=== PATIENT | male | born 1960 | race Caucasian/White ===

== ENCOUNTER 2020-10-18 08:14 | Inpatient (IN) | payer OTHER, SELFPAY ==
[2020-10-18] VITALS (11 sets, daily range): BP systolic 135–174; BP diastolic 87–118; PULSE 75–112; RESP 12–18; TEMP 36.3–37; O2SAT 96–100; BMI 26.6
--- NOTE | 2020-10-18 08:52 | ECG_ITS ---
Test Reason : ABDOMINAL PAIN Blood Pressure : / mmHG Vent. Rate : 100 BPM Atrial Rate : 100 BPM P-R Int : 148 ms QRS Dur : 094 ms QT Int : 342 ms P-R-T Axes : 051 -37 024 degrees QTc Int : 441 ms Normal sinus rhythm Left axis deviation Incomplete right bundle branch block Abnormal ECG No previous ECGs available Referred By: Anjana Dove Electronically Signed By:HERMES ISBELL
--- NOTE | 2020-10-18 08:53 | CT_ITS ---
EXAMINATION: CT ABDOMEN AND PELVIS WITH CONTRAST CLINICAL INFORMATION: Upper/left abdominal pain with GI bleeding. COMPARISON: None TECHNIQUE: Multidetector volumetric images were obtained from the superior aspect of the liver through the pubic symphysis following administration 85 mL of Omnipaque 350 intravenous contrast. Sagittal and coronal reformatted images were obtained on the technologist's workstation. Oral contrast: No This CT examination was performed using dose optimization techniques as appropriate, variously including the following: Automated exposure control Adjustment of mA and/or kV according to patient size (this includes techniques or standardized protocols for targeted exams where dose is matched to indication/reason for exam; i.e. extremities or head) Use of iterative reconstruction technique DLP: 1466 mGy-cm FINDINGS: LUNG BASES: The heart size is normal. The lung bases are clear. LIVER, GALLBLADDER, AND BILIARY TREE: The liver is normal in size, shape, and attenuation. There is a 3 mm punctate hypodensity of the left hepatic lobe and the right hepatic lobe probable cysts. No enhancing liver lesions seen. There is no intrahepatic ductal dilatation. The gallbladder is unremarkable with no evidence of radiopaque gallstones, gallbladder wall thickening, or obvious pericholecystic inflammatory changes. PANCREAS: Unremarkable. SPLEEN: Unremarkable. ADRENAL GLANDS: Unremarkable. KIDNEYS AND URETERS: The kidneys are normal in size, shape, and attenuation. No hydronephrosis, hydroureter, or calculi seen. No perinephric stranding. A partially exophytic 1.9 cm cyst is seen in the midpole left kidney. BLADDER: Unremarkable GASTROINTESTINAL TRACT: There is moderate scattered stool seen throughout the colon without distention. There is mild mural thickening suspected in the rectum and the area of probable anterior rectal bleed. The small bowel loops are normal caliber. Appendix is normal caliber. The stomach is nondistended. ABDOMINAL WALL: No significant hernia is appreciated. LYMPH NODES: Normal. VASCULAR: There is a punctate right blood density seen in the rectum anteriorly on axial image 195/12 which could be potential site for bleed. There is a heterogenous density in the rectum and sigmoid colon likely mixed with blood. . Present The sigmoid colon is nondilated and appears unremarkable. No additional areas of the abdominal hyperdensity a blood pooling seen to suspect any evidence of hemorrhage. The abdominal aorta is normal caliber. Mild atherosclerosis seen. Origins of celiac, superior mesenteric and intracystic arteries are widely patent. Solitary renal arteries are seen bilaterally. PELVIC VISCERA: There is no free air or free fluid seen. There is no abnormal lymph nodes. No evidence of inguinal hernia. The prostate gland is mildly enlarged. Periprostatic fat planes are not well defined.. OSSEOUS STRUCTURES: No lytic or sclerotic process seen. CT/CT abdomen pelvis w con IMPRESSION: Slightly heterogenous fluid collection seen in the rectum and distal sigmoid colon with the area of hypodensity in the anterior wall of the rectum could be likely cysts site of bleed. This can be visualized by colonoscopy. Mild constipation. No additional areas of abnormal density seen. Left renal cyst.
--- NOTE | 2020-10-18 08:54 | ED_ITS ---
HPI - GI Bleed General Chief complaint: Abdominal Pain Stated complaint: BLOOD IN STOOL Time Seen by Provider: 10/18/20 08:26 Source: patient Mode of arrival: ambulatory Limitations: no limitations History of Present Illness HPI Narrative: 60yoM c PMHx HTN, HLD and anxiety d/o presenting to the ED c c/o bright red rectal bleeding x 1-1/2 months worse today where he had his pants almost completely saturated with blood which he brought with him to the ER. Reports lastnight had some upper/left sided abd pain. Reports his Mother has a hx of diverticulitis. Reports he ate nuts yesterday. Reports today when he had the episode of blood saturating his [pants he felt dizzy and at this time he feels lightheaded worse if he stand up too quickly. Reports that he took aspirin 80 mg although does not take this daily. Denies being on any other blood thinners. Denies ever having rectal bleeding in the past. Related Data Home Medications Medication Instructions Recorded Confirmed aspirin 81 mg PO DAILY 10/18/20 10/18/20 atenolol 50 mg PO DAILY 10/18/20 10/18/20 multivitamin 1 tab PO DAILY 10/18/20 10/18/20 valsartan 1 tab PO DAILY 10/18/20 10/18/20 Allergies Allergy/AdvReac Type Severity Reaction Status Date / Time No Known Allergies Allergy Verified 10/18/20 08:52 Review of Systems Review of Systems: Constitutional : No Weight loss, No Fever, No Chills Cardiovascular : No Chest Pain, No SOB, No Dyspnea on Exertion, No Orthopnea, No Edema, No Palpitations Respiratory : No Cough, No Sputum, No Wheezing, No Dyspnea Gastrointestinal : No Nausea, No Vomiting, No Diarrhea, + abdominal Pain, + Hematochezia, No Melena Genitourinary : No irregular bleeding, No Dysuria, No Urinary Frequency, No Hematuria,No Urinary Incontinence, No Urgency, No Flank Pain Musculoskeletal : No joint pain, No Myalgias, No Joint Swelling Skin : No Skin Lesions, No rash Neuro : No Weakness, No Numbness, No Paresthesias, No Loss of Consciousness, + Dizziness, No Headache Yes all other systems are reviewed and are negative [facility] Past Medical History Attestation statement: The following information was validated with the patient. Medical History Anxiety HTN (hypertension) Social History Social History Smoked in Last 30 Days: No Use of substances other than those prescribed or required for medical reasons: Yes Substance Use Type: Marijuana Advance Directives: No Advance Directives Information Provided: No Physical Exam Vital Signs: Vital Signs: Last Vital Signs Temp 98.5 F 10/18/20 11:46 Pulse 97 10/18/20 11:46 Resp 17 10/18/20 11:46 BP 151/87 H 10/18/20 11:46 Pulse Ox 100 10/18/20 11:46 Body Mass Index 26.6 vital signs have been reviewed as normal and appeared to be correct. Blood pressure normal. Heart rate tachycardic. Respiration rate normal. Temperature normal. Oxygen saturation normal. Appearance: Alert. Oriented X3. No acute distress. Head: Normal external exam. Normocephalic. Atraumatic. Eyes: PERRLA. EOMI. Conjunctiva and sclera normal. Eyelids normal. ENT: Pharynx normal. Uvula midline. Moist mucous membranes. Neck: Normal inspection. Neck supple. FROM. No adenopathy. No meningeal signs. CVS: Normal heart rate and rhythm. Heart sound normal. No murmurs noted. Pulses normal throughout. Respiratory: No respiratory distress. Painless inspiration. Breath sounds normal. No wheezes/rales/rhonchi noted. Chest nontender. No accessory muscle usage noted or decreased air movement noted. Abdomen: Soft and nontender. Bowel sounds normal in all 4 quadrants. No distention noted. No organomegaly noted. No visible injury noted. : Rectal exam supervised by KYLAH Caro. On external exam no hemorrhoids or fissures noted. On rectal exam patient has good rectal tone. Bright red blood from rectal exam positive stool occult. Back: No CVA tenderness. Full range of motion noted. Skin: Skin warm and dry. Normal skin color. Normal skin turgor. No rashes/lesions/lacerations noted. Extremities: Extremities exhibit normal range of motion. Extremities nontender. Neuro: Oriented X 3. No motor deficit. No sensory deficit. Reflexes normal. Course Course Course Narrative: 9am - 60yoM c PMHx HTN, HLD and anxiety d/o presenting to the ED c c/o bright red rectal bleeding x 1-1/2 months worse today c associated upper/left sided abd pain and dizziness. - On Rectal exam + Hematochezia. Abd is soft and nontender. - Concern for diverticulitis vs GI Bleed - Plan: Labs, EKG, Lactic acid not for sepsis. Type and screen, 1 liter of IVF's and ct scan of abd/pelvis c IV contrast GI bleed protocol and re-evaluate. Reevaluation(s) Reevaluation #1: Patient's labs within normal limits including H&H. Chest x-ray within normal limits. EKG normal sinus rhythm no acute ischemic changes noted. CT scan of abdomen and pelvis revealed possible cyst in the rectum bleeding although I consulted with Dr. Cespedes who reports there are no cysts in the rectum and it could be something else despite that she will be consulting on the patient and planning a colonoscopy and Dr. Daly the general surgeon will be on standby for the procedure. I consulted with the hospitalist who understands and agrees with this plan patient will be NPO for colonoscopy tomorrow for further evaluation and treatment. Patient understands agrees with this plan and he was updated. COVID swab/RSV/flu negative. Time: 12:29 MDM - GI Bleed Medical Records Attestation: I reviewed the patient's medical records. Lab Data Attestation: I reviewed the patient's lab results. Result diagrams: 10/18/20 09:02 10/18/20 09:02 Labs: Lab Results 10/18/20 10/18/20 10/18/20 Range/Units 09:01 09:01 09:02 WBC 4.4 L (4.8-10.8) X10*3/uL RBC 4.19 L (4.60-5.80) X10*6/uL Hgb 13.4 L (14.0-18.0) g/dl Hct 39.7 L (42-52) % MCV 94.7 (80-98) fL MCH 32.0 (27.0-33.0) pg MCHC 33.8 (31.0-36.0) g/dl RDW 11.9 (11.0-16.0) % Plt Count 185 (160-400) X10*3/uL MPV 9.6 (9.4-12.4) fL Immature Gran % (Auto) 0.5 H (0.0-0.4) % Neut % (Auto) 69.6 (45-73) % Lymph % (Auto) 18.9 L (20-40) % [place] % (Auto) 10.6 (2-11) % Eos % (Auto) 0.2 (0-4) % Baso % (Auto) 0.2 (0-2) % Lymph # (Auto) 0.8 L (1.2-4.9) X10*3/uL [place] # (Auto) 0.5 (0.1-1.2) X10*3/uL Eos # (Auto) 0.0 (0.0-0.4) X10*3/uL Baso # (Auto) 0.0 (0.0-0.2) X10*3/uL Abs Immat Gran (auto) 0.02 (0.00-0.03) X10*3/uL Absolute Neuts (auto) 3.0 (2.0-8.3) X10*3/uL Absolute Nucleated RBC 0.000 (0.0-0.012) X10*3/uL Nucleated RBC % (auto) 0.0 (0.0-0.2) /100WBC Hold Purple Top PT (10.8-13.0) SEC INR (0.9-1.1) APTT (24.1-38.0) SEC Sodium (135-145) mmol/L Potassium (3.3-5.1) mmol/l Chloride (96-108) mmol/L Carbon Dioxide (22-29) mmol/L Anion Gap (12-20) BUN (9-16) mg/dL Creatinine (0.5-1.4) mg/dL Estim Creat Clear Calc Estimated GFR Random Glucose (60-115) mg/dL Lactic Acid 1.0 (0.5-2.0) mmol/L Calcium (8.4-10.2) mg/dL Magnesium (1.6-2.6) mg/dL Total Bilirubin (0.0-1.0) mg/dL Direct Bilirubin (0.0-0.5) mg/dL AST (5-37) U/L ALT (0-40) U/L Alkaline Phosphatase (39-117) U/L Total Protein (6.5-8.0) g/dL Albumin (3.5-5.0) g/dL Lipase (8-78) U/L Urine Color Urine Appearance Urine pH (5.0-8.0) Ur Specific [place] (1.005-1.025) Urine Protein (NEG-TRACE) MG/DL Urine Glucose (UA) (NEG) MG/DL Urine Ketones (NEG) MG/DL Urine Blood (NEG) Urine Nitrite (NEG) Ur Leukocyte Esterase (NEG) Stool Occult Blood POS (NEG) Coronavirus (PCR) (Negative) Influenza Type A (PCR) (Negative) Influenza Type B (PCR) (Negative) RSV RNA Qual (PCR) (Negative) Blood Type Antibody Screen 10/18/20 10/18/20 10/18/20 Range/Units 09:02 09:02 09:02 WBC (4.8-10.8) X10*3/uL RBC (4.60-5.80) X10*6/uL Hgb (14.0-18.0) g/dl Hct (42-52) % MCV (80-98) fL MCH (27.0-33.0) pg MCHC (31.0-36.0) g/dl RDW (11.0-16.0) % Plt Count (160-400) X10*3/uL MPV (9.4-12.4) fL Immature Gran % (Auto) (0.0-0.4) % Neut % (Auto) (45-73) % Lymph % (Auto) (20-40) % [place] % (Auto) (2-11) % Eos % (Auto) (0-4) % Baso % (Auto) (0-2) % Lymph # (Auto) (1.2-4.9) X10*3/uL [place] # (Auto) (0.1-1.2) X10*3/uL Eos # (Auto) (0.0-0.4) X10*3/uL Baso # (Auto) (0.0-0.2) X10*3/uL Abs Immat Gran (auto) (0.00-0.03) X10*3/uL Absolute Neuts (auto) (2.0-8.3) X10*3/uL Absolute Nucleated RBC (0.0-0.012) X10*3/uL Nucleated RBC % (auto) (0.0-0.2) /100WBC Hold Purple Top SEE NOTE PT 11.5 (10.8-13.0) SEC INR 1.0 (0.9-1.1) APTT 34.3 (24.1-38.0) SEC Sodium 137 (135-145) mmol/L Potassium 4.3 (3.3-5.1) mmol/l Chloride 104 (96-108) mmol/L Carbon Dioxide 25 (22-29) mmol/L Anion Gap 12 (12-20) BUN 12 (9-16) mg/dL Creatinine 0.85 (0.5-1.4) mg/dL Estim Creat Clear Calc 87.1 Estimated GFR > 60 Random Glucose 104 (60-115) mg/dL Lactic Acid (0.5-2.0) mmol/L Calcium 8.7 (8.4-10.2) mg/dL Magnesium 2.0 (1.6-2.6) mg/dL Total Bilirubin 1.5 H (0.0-1.0) mg/dL Direct Bilirubin 0.5 (0.0-0.5) mg/dL AST 21 (5-37) U/L ALT 20 (0-40) U/L Alkaline Phosphatase 94 (39-117) U/L Total Protein 7.1 (6.5-8.0) g/dL Albumin 4.0 (3.5-5.0) g/dL Lipase 10 (8-78) U/L Urine Color Urine Appearance Urine pH (5.0-8.0) Ur Specific [place] (1.005-1.025) Urine Protein (NEG-TRACE) MG/DL Urine Glucose (UA) (NEG) MG/DL Urine Ketones (NEG) MG/DL Urine Blood (NEG) Urine Nitrite (NEG) Ur Leukocyte Esterase (NEG) Stool Occult Blood (NEG) Coronavirus (PCR) (Negative) Influenza Type A (PCR) (Negative) Influenza Type B (PCR) (Negative) RSV RNA Qual (PCR) (Negative) Blood Type Antibody Screen 10/18/20 10/18/20 10/18/20 Range/Units 09:06 09:10 10:46 WBC (4.8-10.8) X10*3/uL RBC (4.60-5.80) X10*6/uL Hgb (14.0-18.0) g/dl Hct (42-52) % MCV (80-98) fL MCH (27.0-33.0) pg MCHC (31.0-36.0) g/dl RDW (11.0-16.0) % Plt Count (160-400) X10*3/uL MPV (9.4-12.4) fL Immature Gran % (Auto) (0.0-0.4) % Neut % (Auto) (45-73) % Lymph % (Auto) (20-40) % [place] % (Auto) (2-11) % Eos % (Auto) (0-4) % Baso % (Auto) (0-2) % Lymph # (Auto) (1.2-4.9) X10*3/uL [place] # (Auto) (0.1-1.2) X10*3/uL Eos # (Auto) (0.0-0.4) X10*3/uL Baso # (Auto) (0.0-0.2) X10*3/uL Abs Immat Gran (auto) (0.00-0.03) X10*3/uL Absolute Neuts (auto) (2.0-8.3) X10*3/uL Absolute Nucleated RBC (0.0-0.012) X10*3/uL Nucleated RBC % (auto) (0.0-0.2) /100WBC Hold Purple Top PT (10.8-13.0) SEC INR (0.9-1.1) APTT (24.1-38.0) SEC Sodium (135-145) mmol/L Potassium (3.3-5.1) mmol/l Chloride (96-108) mmol/L Carbon Dioxide (22-29) mmol/L Anion Gap (12-20) BUN (9-16) mg/dL Creatinine (0.5-1.4) mg/dL Estim Creat Clear Calc Estimated GFR Random Glucose (60-115) mg/dL Lactic Acid (0.5-2.0) mmol/L Calcium (8.4-10.2) mg/dL Magnesium (1.6-2.6) mg/dL Total Bilirubin (0.0-1.0) mg/dL Direct Bilirubin (0.0-0.5) mg/dL AST (5-37) U/L ALT (0-40) U/L Alkaline Phosphatase (39-117) U/L Total Protein (6.5-8.0) g/dL Albumin (3.5-5.0) g/dL Lipase (8-78) U/L Urine Color YELLOW Urine Appearance CLEAR Urine pH 6.0 (5.0-8.0) Ur Specific [place] 1.010 (1.005-1.025) Urine Protein NEG (NEG-TRACE) MG/DL Urine Glucose (UA) NEG (NEG) MG/DL Urine Ketones 5 (NEG) MG/DL Urine Blood NEG (NEG) Urine Nitrite NEG (NEG) Ur Leukocyte Esterase NEG (NEG) Stool Occult Blood (NEG) Coronavirus (PCR) NEGATIVE (Negative) Influenza Type A (PCR) NEGATIVE (Negative) Influenza Type B (PCR) NEGATIVE (Negative) RSV RNA Qual (PCR) NEGATIVE (Negative) Blood Type O Positive Antibody Screen NEGATIVE Imaging Data Chest x-ray: Attestation: I personally reviewed and interpreted this imaging study as follows: Radiologist's impression: FINDINGS: No significant abnormality is noted involving the heart, lungs, mediastinum, bony thorax or soft tissues. XR/XR chest 1V IMPRESSION: Unremarkable chest examination. CT scan - abdomen: Attestation: I personally reviewed and interpreted this imaging study as follows: Radiologist's impression: IMPRESSION: Slightly heterogenous fluid collection seen in the rectum and distal sigmoid colon with the area of hypodensity in the anterior wall of the rectum could be likely cysts site of bleed. This can be visualized by colonoscopy. Mild constipation. No additional areas of abnormal density seen. Left renal cyst. ECG Data Attestation: I personally reviewed and interpreted this ECG as follows: ECG interpretation date: 10/18/20 ECG interpretation time: 09:12 Prior ECG tracings: not available for review Interpretation: Normal sinus rhythm with a ventricular rate of 100 with left axis deviation with incomplete right bundle branch block nonspecific ST changes no acute ischemic changes noted. Critical Care Time Critical Care Time Critical Care Time: Yes Total Critical Care Time: 60 Attestation: I personally attest to this time spent taking care of the patient Discharge Plan Discharge Clinical Impression: Acute GI bleeding, Dizziness Patient Disposition: Admitted As Inpatient Prescriptions: No Action multivitamin Tablet 1 tab PO DAILY RF: 0 valsartan 80 mg tablet 1 tab PO DAILY RF: 0 aspirin 81 mg Tablet,Delayed Release (Dr/Ec) 81 mg PO DAILY RF: 0 atenolol 50 mg tablet 50 mg PO DAILY RF: 0
[2020-10-18 09:14] LABS: MANUAL DIFF FLAG NO
[2020-10-18 09:16] LABS: OBS Int Ctl Valid YES; OBS1 POS (NEG)
[2020-10-18 09:19] LABS: Basophils Percent Auto 0.2 % (0-2); Eosinophils Percent Auto 0.2 % (0-4); Hematocrit 39.7 % (42-52); Hemoglobin 13.4 g/dl (14.0-18.0); Imm Gran Abs Auto 0.02 X10*3/uL (0.00-0.03); Imm Gran Pct Auto 0.5 % (0.0-0.4); Lymphocytes Absolute Auto 0.8 X10*3/uL (1.2-4.9); Lymphocytes Percent Auto 18.9 % (20-40); Mean Corpuscular HGB Conc 33.8 g/dl (31.0-36.0); Mean Corpuscular Volume 94.7 fL (80-98); Mean Platelet Volume 9.6 fL (9.4-12.4); Monocytes Absolute Auto 0.5 X10*3/uL (0.1-1.2); Monocytes Percent Auto 10.6 % (2-11); Neutrophils Percent Auto 69.6 % (45-73); Platelet Count 185 X10*3/uL (160-400); Red Blood Count 4.19 X10*6/uL (4.60-5.80); Red Cell Distribution Width 11.9 % (11.0-16.0); White Blood Count 4.4 X10*3/uL (4.8-10.8)
[2020-10-18 09:23] LABS: Prothrombin Time 11.5 SEC (10.8-13.0)
[2020-10-18 09:26] LABS: Partial Thromboplastin Time 34.3 SEC (24.1-38.0)
[2020-10-18 09:50] LABS: Alanine Aminotransferase 20 U/L (0-40); Alkaline Phosphatase 94 U/L (39-117); Anion Gap 12 (12-20); Aspartate Amino Transferase 21 U/L (5-37); Bilirubin Direct 0.5 mg/dL (0.0-0.5); Bilirubin Total 1.5 mg/dL (0.0-1.0); Blood Urea Nitrogen 12 mg/dL (9-16); Calcium 8.7 mg/dL (8.4-10.2); Carbon Dioxide 25 mmol/L (22-29); Chloride 104 mmol/L (96-108); Creatinine Clr Calc Pharmacy 87.1; Estimated Glomerular Filt Rate > 60; Glucose Random 104 mg/dL (60-115); Lipase 10 U/L (8-78); Potassium 4.3 mmol/l (3.3-5.1); Sodium 137 mmol/L (135-145); Total Protein 7.1 g/dL (6.5-8.0)
--- NOTE | 2020-10-18 09:56 | XR_ITS ---
EXAMINATION: XR CHEST CLINICAL INFORMATION: GI bleed and dizziness. COMPARISON: None TECHNIQUE: Frontal view of the chest was obtained. FINDINGS: No significant abnormality is noted involving the heart, lungs, mediastinum, bony thorax or soft tissues. XR/XR chest 1V IMPRESSION: Unremarkable chest examination.
[2020-10-18 10:00] LABS: Influenza A PCR NEGATIVE (Negative); Influenza B PCR NEGATIVE (Negative); Resp Syncy Virus RNA Qual PCR NEGATIVE (Negative); SARS COV2 PCR INHOUSE NEGATIVE (Negative)
[2020-10-18] MEDS: iohexoL 350 MG/ML 100 ML INFUS..BTL IV ×2 (10:38→10:39)
--- NOTE | 2020-10-18 10:50 | PC.NURSE ---
pt had episode of large amount of bright red blood from rectum with clots. pt cleaned up, vitals taken. PA at bedside at tome of leaning pt up. pt aware of plan for admission.
[2020-10-18 10:58] LABS: Glucose Urine UA NEG (NEG); Leukocyte Esterase Urine NEG (NEG); Nitrite Urine NEG (NEG); Urine Blood NEG (NEG); Urine Ketones 5 MG/DL (NEG); Urine Protein NEG (NEG-TRACE)
[2020-10-18 10:59] LABS: Appearance Urine CLEAR; Color Urine YELLOW
--- NOTE | 2020-10-18 14:09 | P.CNGI_ITS ---
History of Present Illness Data of Consult Service Date: 10/18/20 Primary Care Provider: Mason Douglas MD 60 yo male who presented to the ER with significant uncontrollable rectal bleeding episodes. This is new problem for him. (He had inpast declined colonoscopy.) He denies straining with his movements. No clear precipitating event to this bleeding. He takes occasional ASA 81mg. No recent use motrin, aleve, etc. He does have some family hx of ? rectal disease but does not have the specific diagnosis (2 individuals with rectal disorder treated with chemo and radiation???) Review of Systems Constitutional: Constitutional: Denies fever(s), Denies increased appetite and Denies poor appetite Cardiovascular: Comments: known hx of hypertension Gastrointestinal: Gastrointestinal: Denies abdominal pain, Reports hematochezia, Denies change in bowel habits and Denies GI cramping Comments: He has not experienced this before. [facility] Past Medical History Medical History (Updated 10/19/20 @ 14:37 by Sonia Forrester MD) Alcohol dependence Anxiety HTN (hypertension) Family History Family History (Updated 10/19/20 @ 09:49 by Yessica Cespedes MD) Sister Colorectal cancer Family/Other Colorectal cancer Social History Social History Household Members: Spouse Housing: House Do you presently have visiting nurse or other home services: No Alcohol intake: current Alcohol intake frequency: 3 or more drinks per day Alcohol type: beer Smoking Status: Never smoker Smoked in Last 30 Days: No Use of substances other than those prescribed or required for medical reasons: Yes Substance Use Type: Marijuana Currently Displaying Signs/Symptoms of Drug Intoxication Withdrawal: No Any prior treatment program specific to substance use: No Have you been hit, kicked, punched, or otherwise hurt by someone within the past year? If so, by whom?: No Is there a partner from a previous relationship who is making you feel unsafe now?: No Are you made to feel afraid or neglected: No Advance Directives: No Advance Directives Information Provided: No Do you have thoughts of harming others: None Do you have a plan to hurt others: No Plan Recently lost weight without trying: No service: Yes Current occupational status: employed Meds Allergies Allergy/AdvReac Type Severity Reaction Status Date / Time lisinopril AdvReac Cough Verified 10/18/20 14:32 Home Medications Medication Instructions Recorded Confirmed Type aspirin 81 mg PO DAILY 10/18/20 10/18/20 History atenolol 50 mg PO DAILY 10/18/20 10/18/20 History multivitamin 1 tab PO DAILY 10/18/20 10/18/20 History valsartan 1 tab PO DAILY 10/18/20 10/18/20 History Physical Exam Vital Signs: Vital Signs: Last Vital Signs Temp 98.5 F 10/18/20 11:46 Pulse 103 H 10/18/20 13:54 Resp 12 10/18/20 13:54 BP 151/118 H 10/18/20 13:54 Pulse Ox 100 10/18/20 13:54 Body Mass Index 26.6 Const: General: cooperative and anxious Nutritional Appearance: well nourished Orientation/consciousness: patient oriented x3 Resp: Effort & Inspection: normal respiratory effort, able to speak in complete sentences, no audible wheezes, no respiratory distress and no use of accessory muscles Auscultation: clear to auscultation bilaterally Cardio: Rate: regular rate Rhythm: regular rhythm GI: Palpation (GI): Soft to palpation, no masses and No Rebound tenderness present Neuro: General: patient oriented x3 Extrem: General: Yes no clubbing, cyanosis or edema Results Labs CBC & Chem 7: 10/20/20 06:20 10/19/20 05:44 Labs: Short CBC 10/18/20 Range/Units 09:02 WBC 4.4 L (4.8-10.8) X10*3/uL Hgb 13.4 L (14.0-18.0) g/dl Hct 39.7 L (42-52) % Plt Count 185 (160-400) X10*3/uL BMP 10/18/20 09:02 Sodium 137 Potassium 4.3 Chloride 104 Carbon Dioxide 25 BUN 12 Creatinine 0.85 Calcium 8.7 Liver Function 10/18/20 Range/Units 09:02 Total Bilirubin 1.5 H (0.0-1.0) mg/dL Direct Bilirubin 0.5 (0.0-0.5) mg/dL AST 21 (5-37) U/L ALT 20 (0-40) U/L Alkaline Phosphatase 94 (39-117) U/L Albumin 4.0 (3.5-5.0) g/dL Urine 10/18/20 Range/Units 10:46 Urine Color YELLOW Urine Appearance CLEAR Urine pH 6.0 (5.0-8.0) Ur Specific [place] 1.010 (1.005-1.025) Urine Protein NEG (NEG-TRACE) MG/DL Urine Glucose (UA) NEG (NEG) MG/DL Imaging CT scan - abdomen: Radiologist's impression: CT/CT abdomen pelvis w con IMPRESSION: Slightly heterogenous fluid collection seen in the rectum and distal sigmoid colon with the area of hypodensity in the anterior wall of the rectum could be likely cysts site of bleed. This can be visualized by colonoscopy. Mild constipation. No additional areas of abnormal density seen. Left renal cyst. Assessment and Plan (1) Acute GI bleeding: Status: Acute With type of bleeding, CT results and family hx he will be prepped and set up for colonoscopy:AM 1212. (2) Anxiety: Status: Acute Continued to discuss what can cause bleeding like this. Need to examine colon to get better picture of mucosaespecially rectal given the results of todays scanning. He seems to have a family hx of rectal cancer. Some of those lesions can present as ulcerations, there was no clear mass effect noted. Golytely prep [place] in am Repeat labs in AM Clear liquid diet until 2AM/
--- NOTE | 2020-10-18 14:22 | P.CONGS_ITS ---
History of Present Illness Consult details Consult date: 10/18/20 Reason for consult: other (GI bleeding) Requesting physician: Anjana Dove Narrative: This is a 60-year-old gentleman with a past medical history of anxiety and hypertension who had onset of rectal bleeding during the night last night. He works 3rd shift. He reports that he was working last night. He went into the bathroom and found that he had bright red blood soaking through his underwear and pants. He then passed a bloody stool. He went home and after arriving home had 2 additional episodes before coming into the emergency department. Since arriving in the emergency department, he reports 3 additional episodes of passing red blood and clots per rectum. He reports some abdominal discomfort starting around the time that he he had the 1st episode of bleeding l ast night. He describes the pain as feeling similar to hunger pains. He does not report nausea or vomiting. He has not had similar episodes in the past. He has not undergone colonoscopy in the past. He reports that his appetite has been good. Bowel movements have been normal until last night. Review of Systems Constitutional: Constitutional: Reports no additional constitutional complaints and Denies headache(s) Eyes: Eyes: Reports requires corrective lenses (For reading) ENT: Denies headache(s) Cardiovascular: Cardiovascular: Denies chest pain, Denies irregular heart rhythm, Denies palpitations and Denies dyspnea on exertion Respiratory: Respiratory: Denies cough, Denies dyspnea on exertion and Denies wheezing Gastrointestinal: Gastrointestinal: Reports as per HPI Genitourinary: Genitourinary: Denies dysuria and Denies urinary frequency Musculoskeletal: Comments: Bilateral foot arthritis Integumentary/Breasts: Skin/Breast: Denies pruritus and Denies rash Neurologic: Denies Abnormal speech present, Denies headache(s), Denies memory loss and Denies convulsions Psychiatric: Psychiatric: Reports anxiety and Denies memory loss Endocrine: Endocrine: Denies palpitations Hematologic/Lymphatic: Comments: No prior history of unusual bleeding or blood clots Allergic/Immunologic: Allergic/Immunologic: Denies wheezing PMFSH Past Medical History Medical History Anxiety HTN (hypertension) Social History Social History (Updated 10/18/20 @ 14:31 by Johanna Daly MD) Alcohol intake: current Alcohol intake frequency: 3 or more drinks per day Alcohol type: beer Smoked in Last 30 Days: No Use of substances other than those prescribed or required for medical reasons: Yes Substance Use Type: Marijuana Advance Directives: No Advance Directives Information Provided: No Meds Allergies Allergy/AdvReac Type Severity Reaction Status Date / Time lisinopril AdvReac Cough Verified 10/18/20 14:32 Home Medications Medication Instructions Recorded Confirmed Type aspirin 81 mg PO DAILY 10/18/20 10/18/20 History atenolol 50 mg PO DAILY 10/18/20 10/18/20 History multivitamin 1 tab PO DAILY 10/18/20 10/18/20 History valsartan 1 tab PO DAILY 10/18/20 10/18/20 History Physical Exam Vital Signs: Vital Signs: Last Vital Signs Temp 98.5 F 10/18/20 11:46 Pulse 103 H 10/18/20 13:54 Resp 12 10/18/20 13:54 BP 151/118 H 10/18/20 13:54 Pulse Ox 100 10/18/20 13:54 Body Mass Index 26.6 Const: General: healthy appearing, no acute distress and alert Orientation/consciousness: oriented to person and oriented to place HENMT: Head: Yes normal to inspection Ears: hearing grossly normal bilaterally Face and sinus: Yes normal facial exam Eyes: Conjunctivae: conjunctivae normal Sclerae: sclerae normal EOM: EOMs intact bilaterally Neck: Neck: Yes normal visual inspection and Yes trachea midline Resp: Effort & Inspection: normal respiratory effort Auscultation: clear to auscultation bilaterally Cardio: Rate: regular rate Rhythm: regular rhythm Heart sounds: no murmurs GI: Inspection: No distended Palpation (GI): Soft to palpation, nontender, no guarding and not rigid Auscultation: normal bowel sounds Rectal Exam - Male: Yes deferred Skin: Other: normal color, warm and dry Neuro: General: oriented to person and oriented to place Cognition (Neuro): normal cognition Speech: No Abnormal speech present Extrem: General: Yes normal to inspection Psych: Appearance: grossly normal Mental Status: mental status grossly normal Affect: normal affect Thought process: Normal thought process present Insight: Good insight present (Psych) Results Labs Result diagrams: 10/18/20 14:27 10/18/20 09:02 Labs: Abnormal lab results 10/18/20 10/18/20 Range/Units 09:02 09:02 WBC 4.4 L (4.8-10.8) X10*3/uL RBC 4.19 L (4.60-5.80) X10*6/uL Hgb 13.4 L (14.0-18.0) g/dl Hct 39.7 L (42-52) % Immature Gran % (Auto) 0.5 H (0.0-0.4) % Lymph % (Auto) 18.9 L (20-40) % Lymph # (Auto) 0.8 L (1.2-4.9) X10*3/uL Total Bilirubin 1.5 H (0.0-1.0) mg/dL Short CBC 10/18/20 Range/Units 09:02 WBC 4.4 L (4.8-10.8) X10*3/uL Hgb 13.4 L (14.0-18.0) g/dl Hct 39.7 L (42-52) % Plt Count 185 (160-400) X10*3/uL BMP 10/18/20 09:02 Sodium 137 Potassium 4.3 Chloride 104 Carbon Dioxide 25 BUN 12 Creatinine 0.85 Calcium 8.7 Liver Function 10/18/20 Range/Units 09:02 Total Bilirubin 1.5 H (0.0-1.0) mg/dL Direct Bilirubin 0.5 (0.0-0.5) mg/dL AST 21 (5-37) U/L ALT 20 (0-40) U/L Alkaline Phosphatase 94 (39-117) U/L Albumin 4.0 (3.5-5.0) g/dL Urine 10/18/20 Range/Units 10:46 Urine Color YELLOW Urine Appearance CLEAR Urine pH 6.0 (5.0-8.0) Ur Specific [place] 1.010 (1.005-1.025) Urine Protein NEG (NEG-TRACE) MG/DL Urine Glucose (UA) NEG (NEG) MG/DL All other labs normal. CT a of the abdomen and pelvis: Impression: Slightly heterogenous fluid collection seen in the rectum and distal sigmoid colon with the area of hypodensity in the anterior wall of the rectum could be likely cysts site of bleed. This can be visualized by colonoscopy. Mild constipation. No additional areas of abnormal density seen. Left renal cyst. Dictated By:YELITZA,FLAVIA S MD Signed By:<Electronically signed by FLAVIA MELGAR MD in [place]>10/18/20 [id number] I reviewed the images with Dr. Melgar. Assessment and Plan (1) Acute GI bleeding: Problem details: 60-year-old male with lower GI bleeding, unclear etiology. CTA suggests that the site of bleeding may be in the distal sigmoid or upper rectum. Status: Acute He is to be admitted to the hospitalist service. Gastroenterology consultation is pending. Continue IV fluids, serial H and H, anticipate colonoscopy will be done for further assessment. Repeat CBC done, no significant change. NPO pending GI evaluation. Will follow along. He gives a history of significant alcohol intake and may benefit from initiation of phenobarbital protocol.
[2020-10-18 14:34] LABS: MANUAL DIFF FLAG NO
[2020-10-18 14:37] LABS: Basophils Percent Auto 0.2 % (0-2); Eosinophils Percent Auto 0.4 % (0-4); Hematocrit 39.8 % (42-52); Hemoglobin 13.1 g/dl (14.0-18.0); Imm Gran Abs Auto 0.02 X10*3/uL (0.00-0.03); Imm Gran Pct Auto 0.4 % (0.0-0.4); Lymphocytes Absolute Auto 1.1 X10*3/uL (1.2-4.9); Lymphocytes Percent Auto 23.3 % (20-40); Mean Corpuscular HGB Conc 32.9 g/dl (31.0-36.0); Mean Corpuscular Hemoglobin 31.5 pg (27.0-33.0); Mean Corpuscular Volume 95.7 fL (80-98); Mean Platelet Volume 9.2 fL (9.4-12.4); Monocytes Absolute Auto 0.6 X10*3/uL (0.1-1.2); Monocytes Percent Auto 12.1 % (2-11); Neutrophils Absolute Auto 3.1 X10*3/uL (2.0-8.3); Neutrophils Percent Auto 63.6 % (45-73); Platelet Count 190 X10*3/uL (160-400); Red Blood Count 4.16 X10*6/uL (4.60-5.80); Red Cell Distribution Width 11.9 % (11.0-16.0); White Blood Count 4.8 X10*3/uL (4.8-10.8)
--- NOTE | 2020-10-18 14:55 | P.HPHOSP_ITS ---
History of Present Illness Date of Service: 10/18/20 Chief Complaint: Rectal bleeding This is a 60-year-old male who presents to the emergency department with rectal bleeding. About 6 weeks ago he had an episode of dark black stool. This occurred again approximately 1 week later. He had no further rectal bleeding until this morning. Last night he had an episode of epigastric abdominal pain. Today when he got home from work he noticed that his underwear was saturated with bright red blood. Shortly after returning home he had an episode of rectal bleeding. He came to the emergency department for evaluation and had another large episode of bright red blood. He reported feeling lightheaded however his orthostatic blood pressures were negative. He uses aspirin as needed but not daily. He denies ease of any Motrin or similar medications. He does admit to drinking beer on an almost daily basis. He drinks 1-2 cases of beer per week averaging about 7 beers per day. He denies any previous history of GI bleeding. He has never had a colonoscopy. Today his blood pressure has been stable. He was noted to be heme mildly tachycardic. H/H was 13.4/39.7 with no baseline for comparison. He received IV fluid, type and cross was done and he underwent CT scan of the abdomen which showed a possible cyst or area of bleeding in the rectum. He was evaluated by GI in the emergency department with plan for colonoscopy in the morning. Review of Systems Review of Systems: Yes all other systems are reviewed and are negative Cardiovascular: Cardiovascular: Denies chest pain Respiratory: Respiratory: Denies cough Gastrointestinal: Gastrointestinal: Denies abdominal pain [facility] Medical History (Updated 10/18/20 @ 15:09 by DALIA Santiago) Alcohol dependence Anxiety HTN (hypertension) Functional capacity: independent ambulation Family History (Updated 10/18/20 @ 15:08 by DALIA Santiago) Sister Colorectal cancer Family history: reviewed and not pertinent Social History (Updated 10/18/20 @ 15:08 by DALIA Santiago) Household Members: Spouse Alcohol intake: current Alcohol intake frequency: 3 or more drinks per day Alcohol type: beer Smoked in Last 30 Days: No Use of substances other than those prescribed or required for medical reasons: Yes Substance Use Type: Marijuana Advance Directives: No Advance Directives Information Provided: No Meds Allergies Allergy/AdvReac Type Severity Reaction Status Date / Time lisinopril AdvReac Cough Verified 10/18/20 14:32 Home Medications Medication Instructions Recorded Confirmed Type aspirin 81 mg PO DAILY 10/18/20 10/18/20 History atenolol 50 mg PO DAILY 10/18/20 10/18/20 History multivitamin 1 tab PO DAILY 10/18/20 10/18/20 History valsartan 1 tab PO DAILY 10/18/20 10/18/20 History Physical Exam Vital Signs and Narrative: Vital Signs: Last Vital Signs Temp 98.5 F 10/18/20 11:46 Pulse 103 H 10/18/20 13:54 Resp 12 10/18/20 13:54 BP 151/118 H 10/18/20 13:54 Pulse Ox 100 10/18/20 13:54 Body Mass Index 26.6 Const: Nutritional Appearance: well nourished Orientation/consciousness: patient oriented x3 HENMT: Head: Yes normocephalic and Yes atraumatic Eyes: Sclerae: sclerae normal Chest: Chest palpation & inspection: normal inspection of the chest Resp: Effort & Inspection: normal respiratory effort and no respiratory distress Auscultation: clear to auscultation bilaterally Cardio: Rate: regular rate Rhythm: regular rhythm GI: Palpation (GI): Soft to palpation and nontender Skin: General skin exam: no rashes or lesions noted Neuro: General: patient oriented x3 Cranial nerves: Yes CN's II-XII intact bilaterally and Yes Bilaterally intact EOM present Extrem: General: Yes normal to inspection Results Labs CBC and Chem 7: 10/18/20 14:27 10/18/20 09:02 Labs: Laboratory Results - last 24 hr 10/18/20 10/18/20 10/18/20 09:01 09:01 09:02 MCV 94.7 MCH 32.0 MCHC 33.8 RDW 11.9 Plt Count 185 MPV 9.6 Immature Gran % (Auto) 0.5 H Neut % (Auto) 69.6 Lymph % (Auto) 18.9 L [place] % (Auto) 10.6 Eos % (Auto) 0.2 Baso % (Auto) 0.2 Lymph # (Auto) 0.8 L [place] # (Auto) 0.5 Eos # (Auto) 0.0 Baso # (Auto) 0.0 Abs Immat Gran (auto) 0.02 Absolute Neuts (auto) 3.0 Absolute Nucleated RBC 0.000 Nucleated RBC % (auto) 0.0 Hold Purple Top PT INR APTT Anion Gap Estim Creat Clear Calc Estimated GFR Random Glucose Lactic Acid 1.0 Calcium Magnesium Total Bilirubin Direct Bilirubin AST ALT Alkaline Phosphatase Total Protein Albumin Lipase Urine Color Urine Appearance Urine pH Ur Specific [place] Urine Protein Urine Glucose (UA) Urine Ketones Urine Blood Urine Nitrite Ur Leukocyte Esterase Stool Occult Blood POS Coronavirus (PCR) Influenza Type A (PCR) Influenza Type B (PCR) RSV RNA Qual (PCR) Blood Type Antibody Screen 10/18/20 10/18/20 10/18/20 09:02 09:02 09:02 MCV MCH MCHC RDW Plt Count MPV Immature Gran % (Auto) Neut % (Auto) Lymph % (Auto) [place] % (Auto) Eos % (Auto) Baso % (Auto) Lymph # (Auto) [place] # (Auto) Eos # (Auto) Baso # (Auto) Abs Immat Gran (auto) Absolute Neuts (auto) Absolute Nucleated RBC Nucleated RBC % (auto) Hold Purple Top SEE NOTE PT 11.5 INR 1.0 APTT 34.3 Anion Gap 12 Estim Creat Clear Calc 87.1 Estimated GFR > 60 Random Glucose 104 Lactic Acid Calcium 8.7 Magnesium 2.0 Total Bilirubin 1.5 H Direct Bilirubin 0.5 AST 21 ALT 20 Alkaline Phosphatase 94 Total Protein 7.1 Albumin 4.0 Lipase 10 Urine Color Urine Appearance Urine pH Ur Specific [place] Urine Protein Urine Glucose (UA) Urine Ketones Urine Blood Urine Nitrite Ur Leukocyte Esterase Stool Occult Blood Coronavirus (PCR) Influenza Type A (PCR) Influenza Type B (PCR) RSV RNA Qual (PCR) Blood Type Antibody Screen 10/18/20 10/18/20 10/18/20 09:06 09:10 10:46 MCV MCH MCHC RDW Plt Count MPV Immature Gran % (Auto) Neut % (Auto) Lymph % (Auto) [place] % (Auto) Eos % (Auto) Baso % (Auto) Lymph # (Auto) [place] # (Auto) Eos # (Auto) Baso # (Auto) Abs Immat Gran (auto) Absolute Neuts (auto) Absolute Nucleated RBC Nucleated RBC % (auto) Hold Purple Top PT INR APTT Anion Gap Estim Creat Clear Calc Estimated GFR Random Glucose Lactic Acid Calcium Magnesium Total Bilirubin Direct Bilirubin AST ALT Alkaline Phosphatase Total Protein Albumin Lipase Urine Color YELLOW Urine Appearance CLEAR Urine pH 6.0 Ur Specific [place] 1.010 Urine Protein NEG Urine Glucose (UA) NEG Urine Ketones 5 Urine Blood NEG Urine Nitrite NEG Ur Leukocyte Esterase NEG Stool Occult Blood Coronavirus (PCR) NEGATIVE Influenza Type A (PCR) NEGATIVE Influenza Type B (PCR) NEGATIVE RSV RNA Qual (PCR) NEGATIVE Blood Type O Positive Antibody Screen NEGATIVE 10/18/20 14:27 MCV 95.7 MCH 31.5 MCHC 32.9 RDW 11.9 Plt Count 190 MPV 9.2 L Immature Gran % (Auto) 0.4 Neut % (Auto) 63.6 Lymph % (Auto) 23.3 [place] % (Auto) 12.1 H Eos % (Auto) 0.4 Baso % (Auto) 0.2 Lymph # (Auto) 1.1 L [place] # (Auto) 0.6 Eos # (Auto) 0.0 Baso # (Auto) 0.0 Abs Immat Gran (auto) 0.02 Absolute Neuts (auto) 3.1 Absolute Nucleated RBC 0.000 Nucleated RBC % (auto) 0.0 Hold Purple Top PT INR APTT Anion Gap Estim Creat Clear Calc Estimated GFR Random Glucose Lactic Acid Calcium Magnesium Total Bilirubin Direct Bilirubin AST ALT Alkaline Phosphatase Total Protein Albumin Lipase Urine Color Urine Appearance Urine pH Ur Specific [place] Urine Protein Urine Glucose (UA) Urine Ketones Urine Blood Urine Nitrite Ur Leukocyte Esterase Stool Occult Blood Coronavirus (PCR) Influenza Type A (PCR) Influenza Type B (PCR) RSV RNA Qual (PCR) Blood Type Antibody Screen Imaging Radiologist's Impressions: Impressions Abdomen/Pelvis CT 10/18/20 08:53 IMPRESSION: Slightly heterogenous fluid collection seen in the rectum and distal sigmoid colon with the area of hypodensity in the anterior wall of the rectum could be likely cysts site of bleed. This can be visualized by colonoscopy. Mild constipation. No additional areas of abnormal density seen. Left renal cyst. Chest X-Ray 10/18/20 09:56 IMPRESSION: Unremarkable chest examination. Assessment and Plan (1) Acute GI bleeding: Problem details: 60-year-old male with lower GI bleeding, unclear etiology. CTA suggests that the site of bleeding may be in the distal sigmoid or upper rectum. Status: Acute (2) HTN (hypertension): Status: Acute (3) Alcohol dependence: Status: Inactive This is a 60-year-old male with a history of hypertension, alcohol abuse who presents with rectal bleeding GI bleeding CT scan shows possible bleeding in the distal sigmoid colon or rectum GI has evaluated patient, plan to prep for colonoscopy in a.m. -General surgery consult -T&C done -follow CBC, no need for blood transfusion at this time -avoid APA, AC Alcohol dependence -phenobarbital -supplementation with thiamine, folic acid -care team evaluation prior to discharge Hypertension Blood pressure is somewhat elevated May be in part related to alcohol withdrawal -continue atenolol, valsartan dvt ppx - mechanical devices due to GI bleed This case was discussed with Dr. Forrester
[2020-10-18] MEDS: PHENobarbitaL sodium 130 MG/ML VIAL 218 MG IM (15:25)
--- NOTE | 2020-10-18 17:03 | PM.EVENT ---
Event Note Date of Service: 10/18/20 Event Note: the patient was seen and evaluated with DALIA Roldan. I agree with her note, assessment and plan with the following. In summary, a 60 years old male with PMH of hypertension and alcohol abuse who presents to the hospital with rectal bleeding. He reports over the last 6 weeks he had multiple episodes of dark black stool infrequently and was not constant. He tried some dietary changes with seems to be working but last night he started to have fresh blood per rectum in significant amount and multiple occasions with associated lightheadedness and near-syncope. He presented to the hospital and a CT scan of the abdomen pelvis was concerning for possible leakage around the rectal area versus cyst or masses. Admitted for further evaluation and treatment. Bleeding per rectum Hemoglobin stable up to this point CT scan as reported GI input appreciated, to do colonoscopy giving family history of rectal cancer Surgery input appreciated, no intervention at this point Preparation for colonoscopy IV fluid for now Type and screen Serial H&H Rest of evaluations by DALIA note.
[2020-10-18] MEDS: PHENobarbitaL sodium 130 MG/ML VIAL 164 MG IM ×2 (18:34→22:40)
[2020-10-18] MEDS: polyethylene glycoL 3350 17 GM POWD.PACK PO ×6 (22:39→23:54)
[2020-10-18] MEDS: 0.9 % Sodium Chloride Flush 3 ML SYRINGE IVFLUSH (22:41)
[2020-10-18 22:42] LABS: Hematocrit 37.5 % (42-52); Hemoglobin 12.6 g/dl (14.0-18.0); Mean Corpuscular HGB Conc 33.6 g/dl (31.0-36.0); Mean Corpuscular Volume 95.2 fL (80-98); Mean Platelet Volume 9.5 fL (9.4-12.4); Platelet Count 174 X10*3/uL (160-400); Red Blood Count 3.94 X10*6/uL (4.60-5.80); White Blood Count 4.6 X10*3/uL (4.8-10.8)
[2020-10-18] MEDS: bisacodyL 5 MG TABLET.DR PO (22:54)
[2020-10-19] VITALS (12 sets, daily range): BP systolic 98–154; BP diastolic 59–92; PULSE 54–98; RESP 17–20; TEMP 36.2–37.1; O2SAT 98–100
[2020-10-19] MEDS: polyethylene glycoL 3350 17 GM POWD.PACK PO ×2 (00:29→00:32)
[2020-10-19] MEDS: 0.9 % Sodium Chloride Flush 3 ML SYRINGE IVFLUSH ×3 (01:40→16:48)
--- NOTE | 2020-10-19 03:39 | PC.NURSE ---
tele revewed with [facility] shreya pires
[2020-10-19 06:35] LABS: MANUAL DIFF FLAG NO
[2020-10-19] MEDS: Flu Vacc QS2020-21(6mos up)/PF 0.5 ML SYRINGE IM (06:48)
[2020-10-19 06:57] LABS: Basophils Percent Auto 0.5 % (0-2); Eosinophils Absolute Auto 0.1 X10*3/uL (0.0-0.4); Eosinophils Percent Auto 1.9 % (0-4); Hematocrit 38.8 % (42-52); Imm Gran Abs Auto 0.01 X10*3/uL (0.00-0.03); Imm Gran Pct Auto 0.2 % (0.0-0.4); Lymphocytes Absolute Auto 0.9 X10*3/uL (1.2-4.9); Lymphocytes Percent Auto 22.8 % (20-40); Mean Corpuscular HGB Conc 33.5 g/dl (31.0-36.0); Mean Corpuscular Volume 95.6 fL (80-98); Mean Platelet Volume 9.9 fL (9.4-12.4); Monocytes Absolute Auto 0.6 X10*3/uL (0.1-1.2); Neutrophils Absolute Auto 2.5 X10*3/uL (2.0-8.3); Neutrophils Percent Auto 60.6 % (45-73); Platelet Count 167 X10*3/uL (160-400); Red Blood Count 4.06 X10*6/uL (4.60-5.80); Red Cell Distribution Width 11.9 % (11.0-16.0); White Blood Count 4.1 X10*3/uL (4.8-10.8)
[2020-10-19 07:10] LABS: Anion Gap 12 (12-20); Blood Urea Nitrogen 8 mg/dL (9-16); Calcium 8.2 mg/dL (8.4-10.2); Carbon Dioxide 24 mmol/L (22-29); Chloride 106 mmol/L (96-108); Creatinine Clr Calc Pharmacy 105.8; Estimated Glomerular Filt Rate > 60; Glucose Random 73 mg/dL (60-115); Potassium 3.8 mmol/l (3.3-5.1); Sodium 138 mmol/L (135-145)
[2020-10-19] MEDS: PHENobarbitaL 15 MG TABLET 45 MG PO ×2 (08:18→21:50)
[2020-10-19] MEDS: atenoloL 50 MG TABLET PO (08:18)
[2020-10-19] MEDS: Valsartan 80 MG TABLET PO (08:19)
--- NOTE | 2020-10-19 08:23 | P.CONAN_ITS ---
[facility] Past Medical History Medical History (Updated 10/18/20 @ 15:09 by DALIA Santiago) Alcohol dependence Anxiety HTN (hypertension) Functional capacity: independent ambulation Family History Family History (Updated 10/18/20 @ 15:08 by DALIA Santiago) Sister Colorectal cancer Social History Social History Household Members: Spouse Housing: House Do you presently have visiting nurse or other home services: No Alcohol intake: current Alcohol intake frequency: 3 or more drinks per day Al cohol type: beer Smoking Status: Never smoker Smoked in Last 30 Days: No Use of substances other than those prescribed or required for medical reasons: Yes Substance Use Type: Marijuana Any prior treatment program specific to substance use: No Have you been hit, kicked, punched, or otherwise hurt by someone within the past year? If so, by whom?: No Is there a partner from a previous relationship who is making you feel unsafe now?: No Are you made to feel afraid or neglected: No Advance Directives: No Advance Directives Information Provided: No Do you have thoughts of harming others: None Do you have a plan to hurt others: No Plan Recently lost weight without trying: No Meds Allergies Allergy/AdvReac Type Severity Reaction Status Date / Time lisinopril AdvReac Cough Verified 10/18/20 14:32 Home Medications Medication Instructions Recorded Confirmed Type aspirin 81 mg PO DAILY 10/18/20 10/18/20 History atenolol 50 mg PO DAILY 10/18/20 10/18/20 History multivitamin 1 tab PO DAILY 10/18/20 10/18/20 History valsartan 1 tab PO DAILY 10/18/20 10/18/20 History Exam Exam Date and Time: October 19, 2020 0823 Height,Weight and Vital Signs: Height 5 ft 8 in Weight 79.379 kg Last Vital Signs Temp 97.4 F 10/19/20 04:00 Pulse 88 10/19/20 04:00 Resp 18 10/19/20 04:00 BP 135/92 H 10/19/20 04:00 Pulse Ox 99 10/19/20 04:00 Pertinent Lab Results Pertinent Lab Results: Laboratory Tests 10/18/20 10/18/20 10/18/20 09:01 09:01 09:02 WBC 4.4 L RBC 4.19 L Hgb 13.4 L Hct 39.7 L MCV 94.7 MCH 32.0 MCHC 33.8 RDW 11.9 Plt Count 185 MPV 9.6 Immature Gran % (Auto) 0.5 H Neut % (Auto) 69.6 Lymph % (Auto) 18.9 L [place] % (Auto) 10.6 Eos % (Auto) 0.2 Baso % (Auto) 0.2 Lymph # (Auto) 0.8 L [place] # (Auto) 0.5 Eos # (Auto) 0.0 Baso # (Auto) 0.0 Abs Immat Gran (auto) 0.02 Absolute Neuts (auto) 3.0 Absolute Nucleated RBC 0.000 Nucleated RBC % (auto) 0.0 Hold Purple Top PT INR APTT Sodium Potassium Chloride Carbon Dioxide Anion Gap BUN Creatinine Estim Creat Clear Calc Estimated GFR Random Glucose Lactic Acid 1.0 Calcium Magnesium Total Bilirubin Direct Bilirubin AST ALT Alkaline Phosphatase Total Protein Albumin Lipase Urine Color Urine Appearance Urine pH Ur Specific [place] Urine Protein Urine Glucose (UA) Urine Ketones Urine Blood Urine Nitrite Ur Leukocyte Esterase Stool Occult Blood POS Coronavirus (PCR) Influenza Type A (PCR) Influenza Type B (PCR) RSV RNA Qual (PCR) Blood Type Antibody Screen 10/18/20 10/18/20 10/18/20 09:02 09:02 09:02 WBC RBC Hgb Hct MCV MCH MCHC RDW Plt Count MPV Immature Gran % (Auto) Neut % (Auto) Lymph % (Auto) [place] % (Auto) Eos % (Auto) Baso % (Auto) Lymph # (Auto) [place] # (Auto) Eos # (Auto) Baso # (Auto) Abs Immat Gran (auto) Absolute Neuts (auto) Absolute Nucleated RBC Nucleated RBC % (auto) Hold Purple Top SEE NOTE PT 11.5 INR 1.0 APTT 34.3 Sodium 137 Potassium 4.3 Chloride 104 Carbon Dioxide 25 Anion Gap 12 BUN 12 Creatinine 0.85 Estim Creat Clear Calc 87.1 Estimated GFR > 60 Random Glucose 104 Lactic Acid Calcium 8.7 Magnesium 2.0 Total Bilirubin 1.5 H Direct Bilirubin 0.5 AST 21 ALT 20 Alkaline Phosphatase 94 Total Protein 7.1 Albumin 4.0 Lipase 10 Urine Color Urine Appearance Urine pH Ur Specific [place] Urine Protein Urine Glucose (UA) Urine Ketones Urine Blood Urine Nitrite Ur Leukocyte Esterase Stool Occult Blood Coronavirus (PCR) Influenza Type A (PCR) Influenza Type B (PCR) RSV RNA Qual (PCR) Blood Type Antibody Screen 10/18/20 10/18/20 10/18/20 09:06 09:10 10:46 WBC RBC Hgb Hct MCV MCH MCHC RDW Plt Count MPV Immature Gran % (Auto) Neut % (Auto) Lymph % (Auto) [place] % (Auto) Eos % (Auto) Baso % (Auto) Lymph # (Auto) [place] # (Auto) Eos # (Auto) Baso # (Auto) Abs Immat Gran (auto) Absolute Neuts (auto) Absolute Nucleated RBC Nucleated RBC % (auto) Hold Purple Top PT INR APTT Sodium Potassium Chloride Carbon Dioxide Anion Gap BUN Creatinine Estim Creat Clear Calc Estimated GFR Random Glucose Lactic Acid Calcium Magnesium Total Bilirubin Direct Bilirubin AST ALT Alkaline Phosphatase Total Protein Albumin Lipase Urine Color YELLOW Urine Appearance CLEAR Urine pH 6.0 Ur Specific [place] 1.010 Urine Protein NEG Urine Glucose (UA) NEG Urine Ketones 5 Urine Blood NEG Urine Nitrite NEG Ur Leukocyte Esterase NEG Stool Occult Blood Coronavirus (PCR) NEGATIVE Influenza Type A (PCR) NEGATIVE Influenza Type B (PCR) NEGATIVE RSV RNA Qual (PCR) NEGATIVE Blood Type O Positive Antibody Screen NEGATIVE 10/18/20 10/18/20 10/19/20 14:27 22:14 05:44 WBC 4.8 4.6 L 4.1 L RBC 4.16 L 3.94 L 4.06 L Hgb 13.1 L 12.6 L 13.0 L Hct 39.8 L 37.5 L 38.8 L MCV 95.7 95.2 95.6 MCH 31.5 32.0 32.0 MCHC 32.9 33.6 33.5 RDW 11.9 12.0 11.9 Plt Count 190 174 167 MPV 9.2 L 9.5 9.9 Immature Gran % (Auto) 0.4 0.2 Neut % (Auto) 63.6 60.6 Lymph % (Auto) 23.3 22.8 [place] % (Auto) 12.1 H 14.0 H Eos % (Auto) 0.4 1.9 Baso % (Auto) 0.2 0.5 Lymph # (Auto) 1.1 L 0.9 L [place] # (Auto) 0.6 0.6 Eos # (Auto) 0.0 0.1 Baso # (Auto) 0.0 0.0 Abs Immat Gran (auto) 0.02 0.01 Absolute Neuts (auto) 3.1 2.5 Absolute Nucleated RBC 0.000 0.000 0.000 Nucleated RBC % (auto) 0.0 0.0 0.0 Hold Purple Top PT INR APTT Sodium Potassium Chloride Carbon Dioxide Anion Gap BUN Creatinine Estim Creat Clear Calc Estimated GFR Random Glucose Lactic Acid Calcium Magnesium Total Bilirubin Direct Bilirubin AST ALT Alkaline Phosphatase Total Protein Albumin Lipase Urine Color Urine Appearance Urine pH Ur Specific [place] Urine Protein Urine Glucose (UA) Urine Ketones Urine Blood Urine Nitrite Ur Leukocyte Esterase Stool Occult Blood Coronavirus (PCR) Influenza Type A (PCR) Influenza Type B (PCR) RSV RNA Qual (PCR) Blood Type Antibody Screen 10/19/20 05:44 WBC RBC Hgb Hct MCV MCH MCHC RDW Plt Count MPV Immature Gran % (Auto) Neut % (Auto) Lymph % (Auto) [place] % (Auto) Eos % (Auto) Baso % (Auto) Lymph # (Auto) [place] # (Auto) Eos # (Auto) Baso # (Auto) Abs Immat Gran (auto) Absolute Neuts (auto) Absolute Nucleated RBC Nucleated RBC % (auto) Hold Purple Top PT INR APTT Sodium 138 Potassium 3.8 Chloride 106 Carbon Dioxide 24 Anion Gap 12 BUN 8 L Creatinine 0.70 Estim Creat Clear Calc 105.8 Estimated GFR > 60 Random Glucose 73 Lactic Acid Calcium 8.2 L Magnesium Total Bilirubin Direct Bilirubin AST ALT Alkaline Phosphatase Total Protein Albumin Lipase Urine Color Urine Appearance Urine pH Ur Specific [place] Urine Protein Urine Glucose (UA) Urine Ketones Urine Blood Urine Nitrite Ur Leukocyte Esterase Stool Occult Blood Coronavirus (PCR) Influenza Type A (PCR) Influenza Type B (PCR) RSV RNA Qual (PCR) Blood Type Antibody Screen Airway Mallampati Class: II TM Dist: >3cm Neck ROM: Full Heart: RRR Lungs: CTA Assessment and Plan Assessment Anesthesia Assessment: Anesthesia Plan Discussed Final Anesthetic Review NPO: Yes ASA Class: III and Emergency Final Preanesthetic Review: No Changes in Pt Med Stat, Meds/Allgs Chart Reviewed, Consent Obtained/Reviewed and Anes Risks/Benef Reviewed Patient Risk: Intermediate Procedure Risk: Low Anesthetic Plan Anesthetic Plan: MAC: Disposition: Standard PACU
--- NOTE | 2020-10-19 08:52 | MHC.SHP ---
Pre-Procedural Eval Section A The patient is an INPATIENT: Yes Changes since office visit: Yes Patient answered all questions The History & Physical has been completed within 30 days and I have reviewed it.: Yes Section B Chief Complaint: GI Bleeding Allergies: Allergies Allergy/AdvReac Type Severity Reaction Status Date / Time lisinopril AdvReac Cough Verified 10/18/20 14:32 Plan Patient has been examined and remains a candidate for the planned procedure;
--- NOTE | 2020-10-19 09:40 | P.BOP_ITS ---
Brief Operative Note Date of Service: 10/19/20 Pre-op diagnosis: Rectal bleeding--ACUTE-Hx in sister and Maternal side cousin with rectal cancer. Never had a colonoscopy. Post-op diagnosis: other (Rectal lesion most c/ with cancer, just in from Ano- rectal verge.) Procedure: Colonoscopy with bx Implants: non Surgeon: Yessica Cespedes MD Anesthesia: MAC (MD Rosana) Estimated blood loss (mL): 10 Pathology: other (Large circumferential lesion rectal) Condition: stable Disposition: PACU
--- NOTE | 2020-10-19 09:44 | P.EN_ITS ---
Event Note Date of Service: 10/19/20 Event Note: This patient needs to be set up for pelvic MRI to evaluate a low r ectal lesion. Diet for today clear to full liquid. Follow H&H. Do CEA. Consult Oncology for discussion on management --Dr. Daly was present for the procedure and is aware of the Findings.
--- NOTE | 2020-10-19 11:59 | PM.PNGS ---
Subjective Subjective Date of Service: 10/19/20 Interval history: Back from colonoscopy. No complaints. He spoke with Dr. Cespedes following the procedure and is aware of the findings. I also was present for part of the colonoscopy and discussed findings with him. He is not sure whether he passed any blood this morning, but did not have active bleeding evident during the the colonoscopy. Physical Exam Vital Signs: Vital Signs: Last Vital Signs Temp 98.7 F 10/19/20 10:00 Pulse 60 10/19/20 10:10 Resp 18 10/19/20 10:10 BP 120/83 10/19/20 10:10 Pulse Ox 100 10/19/20 10:10 Body Mass Index 26.6 Const: Other: Alert, appears comfortable, in no distress GI: Other: Soft, nondistended. Rectal examination done immediately following colonoscopy, while patient was still sedated. There is a firm mobile lesion at about 2-3 cm Psych: Affect: normal affect Thought process: Normal thought process present Progress Note: A&P Assessment and plan (1) Acute GI bleeding: Problem details: 60-year-old male with lower GI bleeding, source appears to be a rectal mass Status: Acute Assessment and Plan: No active bleeding, repeat CBC in a.m., sooner if bleeding recurs (2) Rectal mass: Problem details: Mass consistent with carcinoma identified at time of colonoscopy. There appears to be an associated villous component with entire lesion encircling approximately 70% of distal rectal circumference Status: Acute Assessment and Plan: Await biopsy results, check CEA (ordered for a.m.), begin clear liquid diet. If he remains stable, he can be discharged home to complete workup and treatment planning on an outpatient basis. Discussed with him. Fall Risk Details Current Medications: Current Medications Generic Name Dose Route Start Last Admin Trade Name Freq PRN Reason Stop Dose Admin Acetaminophen 650 mg 10/18/20 20:40 Acetaminophen 325 Mg Tablet PO Q6H PRN Pain, Mild (Pain Scale 1-3) Atenolol 50 mg 10/19/20 09:00 10/19/20 08:18 Atenolol 50 Mg Tablet PO 50 mg DAILY [facility] Administration Protocol Docusate Sodium 100 mg 10/18/20 20:40 Docusate Sodium 100 Mg Capsule PO DAILY PRN Constipation Folic Acid 1 mg 10/19/20 09:00 10/19/20 08:21 Folic Acid 1 Mg Tablet PO Not Given DAILY [facility] Lactated Ringer's 1,000 mls @ 20 mls/hr 10/19/20 08:30 Lr IVCONT .Q24H [facility] Medication 1 each 10/19/20 09:00 No Benzodiazepines MISCELLANE DAILY [facility] Ondansetron HCl 4 mg 10/18/20 20:40 Ondansetron Hcl 4 Mg/2 Ml Vial IVPUSH Q8H PRN Nausea and Vomiting Ondansetron HCl 4 mg 10/19/20 08:25 Ondansetron Hcl 4 Mg/2 Ml Vial IVPUSH ONCE PRN Nausea and Vomiting Pharmacy Consult 1 each 10/18/20 10:49 Consult Rx Perform Med Rec MISCELLANE ONCE PRN Consult order Pharmacy Consult 1 each 10/18/20 14:37 Consult Rx Etoh Phenob Dosing MISCELLANE ONCE PRN Consult order Protocol Phenobarbital 45 mg 10/19/20 09:00 10/19/20 08:18 Phenobarbital 15 Mg Tablet PO 10/20/20 21:01 45 mg BID [facility]AN Administration Phenobarbital 15 mg 10/21/20 09:00 Phenobarbital 15 Mg Tablet PO 10/22/20 21:01 BID [facility]AN Phenobarbital 15 mg 10/23/20 09:00 Phenobarbital 15 Mg Tablet PO 10/24/20 09:01 DAILY [facility] Sodium Chloride 3 ml 10/18/20 20:40 10/19/20 08:15 0.9 % Sodium Chloride Flush 3 Ml Syringe IVFLUSH 3 ml QSHIFT [facility]AN Administration Thiamine HCl 100 mg 10/19/20 09:00 10/19/20 08:21 Thiamine Hcl 100 Mg Tablet PO Not Given DAILY [facility] Valsartan 80 mg 10/19/20 09:00 10/19/20 08:19 Valsartan 80 Mg Tablet PO 80 mg DAILY [facility] Administration Protocol Time Spent With Patient Time: Total time spent is greater than 50% in coordination of care (as documented) at patient's floor/unit and/or counseling patient: Time with patient: 15 - 24 minutes
--- NOTE | 2020-10-19 14:36 | P.PNIM_ITS ---
Subjective Subjective Date of Service: 10/19/20 Interval History: the patient was seen and evaluated this morning Laying in bed, feels comfortable after coming back from colonoscopy Denies any fever, chills or shortness of breath No reported bleeding episodes overnight No reported other overnight events. Systemic review: No fever, chills or weakness No chest pain, palpitation No shortness of breath or coughing No abdominal pain, nausea or vomiting No urinary symptoms No any rash or wounds Physical Exam Vital Signs: Vital Signs: Last Vital Signs Temp 98.7 F 10/19/20 10:00 Pulse 60 10/19/20 10:10 Resp 18 10/19/20 10:10 BP 120/83 10/19/20 10:10 Pulse Ox 100 10/19/20 10:10 Body Mass Index 26.6 Constitutional : Alert, oriented, not in distress Neck : Normal inspection, Supple Cardiovascular : RRR, S1 S2, no lower extremity edema Respiratory : Good bilateral air entry, no crackles, wheezes or rhonchi Gastrointestinal: soft, lax, Normal bowel sounds, Non tender Skin : Warm/Dry, No rash Neurological : Alert & oriented x3, No focal deficit Objective Data Current Medications Generic Name Dose Route Start Last Admin Trade Name Freq PRN Reason Stop Dose Admin Acetaminophen 650 mg 10/18/20 20:40 Acetaminophen 325 Mg Tablet PO Q6H PRN Pain, Mild (Pain Scale 1-3) Atenolol 50 mg 10/19/20 09:00 10/19/20 08:18 Atenolol 50 Mg Tablet PO 50 mg DAILY [facility] Administration Protocol Docusate Sodium 100 mg 10/18/20 20:40 Docusate Sodium 100 Mg Capsule PO DAILY PRN Constipation Folic Acid 1 mg 10/19/20 09:00 10/19/20 08:21 Folic Acid 1 Mg Tablet PO Not Given DAILY [facility] Lactated Ringer's 1,000 mls @ 20 mls/hr 10/19/20 08:30 10/19/20 11:59 Lr IVCONT Not Given .Q24H [facility] Medication 1 each 10/19/20 09:00 No Benzodiazepines MISCELLANE DAILY [facility] Ondansetron HCl 4 mg 10/18/20 20:40 Ondansetron Hcl 4 Mg/2 Ml Vial IVPUSH Q8H PRN Nausea and Vomiting Ondansetron HCl 4 mg 12/12/20 08:25 Ondansetron Hcl 4 Mg/2 Ml Vial IVPUSH ONCE PRN Nausea and Vomiting Pharmacy Consult 1 each 10/18/20 10:49 Consult Rx Perform Med Rec MISCELLANE ONCE PRN Consult order Pharmacy Consult 1 each 10/18/20 14:37 Consult Rx Etoh Phenob Dosing MISCELLANE ONCE PRN Consult order Protocol Phenobarbital 45 mg 10/19/20 09:00 10/19/20 08:18 Phenobarbital 15 Mg Tablet PO 10/20/20 21:01 45 mg BID [facility] Administration Phenobarbital 15 mg 10/21/20 09:00 Phenobarbital 15 Mg Tablet PO 10/22/20 21:01 BID [facility] Phenobarbital 15 mg 10/23/20 09:00 Phenobarbital 15 Mg Tablet PO 10/24/20 09:01 DAILY [facility] Sodium Chloride 3 ml 10/18/20 20:40 10/19/20 08:15 0.9 % Sodium Chloride Flush 3 Ml Syringe IVFLUSH 3 ml QSHIFT [facility] Administration Thiamine HCl 100 mg 10/19/20 09:00 10/19/20 08:21 Thiamine Hcl 100 Mg Tablet PO Not Given DAILY [facility] Valsartan 80 mg 10/19/20 09:00 10/19/20 08:19 Valsartan 80 Mg Tablet PO 80 mg DAILY [facility] Administration Protocol Labs CBC & Chem 7: 10/19/20 05:44 10/19/20 05:44 Assessment and Plan (1) Acute GI bleeding: Status: Acute (2) HTN (hypertension): Status: Acute (3) Alcohol dependence: Status: Inactive Assessment and Plan: This is a 60-year-old male with a history of hypertension, alcohol abuse who presents with rectal bleeding GI bleeding Rectal mass Likely rectal cancer Stable hemoglobin CT scan shows bleeding in the distal sigmoid colon or rectum with surrounding tissue abnormalities Colonoscopy showed ulcer covered with a clot and mass in the rectal area, biopsies taking Surgery input appreciated To check MRI of the pelvis for further evaluation of the mass Advanced diet as tolerated To get Oncology evaluation Alcohol dependence Continue phenobarbital supplementation with thiamine, folic acid care team evaluation prior to discharge Hypertension Blood pressure is somewhat elevated May be in part related to alcohol withdrawal continue atenolol, valsartan dvt ppx - mechanical devices
--- NOTE | 2020-10-19 15:08 | MHC.CM.PN ---
PT REPORTS HE LIVES AT HOME WITH HIS AND IS FULLY INDEPENDENT, WORKS AND DRIVES. PT HAS NO DME BUT DOES HAVE A BP MACHINE THAT HE USES PERIODICALLY. PT DID NOT HAVE A HCP EXPLOSIVES OPERATOR BUT DID COMPLETE ONE TODAY NAMING HIS MATT ENRIQUEZ([phone]) AND HIS SISTER EDEL MAGALLANES([phone]) HIS PRIMARY AND ALTERNATE AGENTS RESPECTIVELY. PT REPORTS [facility] BELIEVES HE IS ELIGIBLE TO DO SO. CM DISCUSSED THE IMPORTANCE OF BEING [facility] IN THE EVEN SERVICES /BENEFITS ARE EVER NEEDED. PTS CURRENT DC PLAN IS HOME WITH NO SERVICES. PT WILL SELF ARRANGE TRANSPORTATION
--- NOTE | 2020-10-19 17:48 | MHC.CARE ---
CARE team received consult for this patient in [facility] room 445[place]2 to provide support for alcohol use. CARE team reviewed chart and spoke to patient's nurse. Patient was started on phenobarb this morning and had colonoscopy. Is suffering from GI bleed and will have consults with surgery, GI, and oncology for further eval. Will be in the hospital until his MRI on Wednesday. CARE team plans to check in on patient's progress tomorrow to determine if it is appropriate to meet at that time.
--- NOTE | 2020-10-19 19:02 | OP_ITS ---
SURGEON: Yessica Cespedes MD PREOPERATIVE DIAGNOSIS: Acute Lower GI Bleed POSTOPERATIVE DIAGNOSIS: Rectal cancer. PROCEDURE PERFORMED: Colonoscopy with biopsy. ESTIMATED BLOOD LOSS: Minimal from biopsies. COMPLICATIONS: No complications. ANESTHESIA: Monitored. ANESTHESIOLOGIST: Dr. Salvador Wayne ASSISTANTS:NONE SPECIMENS: Specimens: rectal mass biopsies. PREOPERATIVE DIAGNOSES: The patient is a 60-year-old male who presented originally to the emergency room on 10/18 and was admitted due to brisk and repetitive rectal bleeding. The patient has no similar history, is never had a colonoscopy. He does have a history in a sister and a 1st degree cousin on his mother's side of what appears to be rectal cancer. Primary care provider, Dr. Douglas, the patient has refused colonoscopy in the past. CLERICAL SPECIALIST: Dr. Cespedes. FINDINGS: Digital rectal exam revealed a palpable somewhat indurated mass that appeared to have umbilication. Prostate was not examined on this exam. Sphincter tone was decreased. Video colonoscope was introduced without difficulty. It was clear as I inserted the scope, there was a very low rectal mass. This had a surface clot adherent to a portion of the mass lesion. The scope advanced through rectosigmoid sigmoid descending, transverse ascending colon down into the cecal cap. Appendiceal orifice was seen. Ileocecal valve was well seen. No mucosal abnormalities were appreciated. Prep was fair to good. There were areas of residual scattered solid stool. Small scybalous balls, however, they did intermittently plug the suction port requiring additional flushing and suctioning. Scope slowly withdrawn good rotational views. No additional lesions were seen. Once back in the rectum, it was clear that there was almost totally circumferential lesion estimated to encompass about 75% of the lumen, that part of the mass was indurated, slightly ulcerated had an adherent clot or/eschar, opposing this was a very villous portion of the lesion as well. This was gently biopsied due to the recent bleeding. The scope was withdrawn. Again, a good view on withdrawal of the scope anorectal verge could be seen and the tumor edge seems to be within less than 2 cm from the anorectal verge. Present at the exam was Dr. Daly from General Surgery, who was also consulting on the case. Findings were discussed with the hospitalist service. Management plan was outlined. RECOMMENDATIONS: The patient to stay in-house for at least an additional 24-48 hours. Monitor H and H closely. He needs a pelvic MRI for assessment of level of involvement of the rectal lesion. Oncology consult will be appropriate. HAIR ROOTING MACHINE OPERATOR: No delivery assistant. GRAFT OR IMPLANTS: No grafts or implants. CONDITION: Postprocedure, stable. Yessica Cespedes MD MEN/MODL / [id number] MTDD
[2020-10-20] VITALS (8 sets, daily range): BP systolic 102–138; BP diastolic 64–79; PULSE 65–81; RESP 18–20; TEMP 36.6–37.1; O2SAT 97–99
[2020-10-20] MEDS: 0.9 % Sodium Chloride Flush 3 ML SYRINGE IVFLUSH ×4 (00:06→23:17)
[2020-10-20 07:45] LABS: Hematocrit 38.9 % (42-52); Hemoglobin 12.8 g/dl (14.0-18.0); Mean Corpuscular HGB Conc 32.9 g/dl (31.0-36.0); Mean Corpuscular Hemoglobin 31.4 pg (27.0-33.0); Mean Corpuscular Volume 95.6 fL (80-98); Mean Platelet Volume 9.8 fL (9.4-12.4); Platelet Count 159 X10*3/uL (160-400); Red Blood Count 4.07 X10*6/uL (4.60-5.80); Red Cell Distribution Width 11.9 % (11.0-16.0); White Blood Count 3.9 X10*3/uL (4.8-10.8)
--- NOTE | 2020-10-20 09:16 | P.CNHO_ITS ---
Subjective - Subjective Chief complaint: RECTAL BLEEDING Patient: new to practice Consult date: 10/20/20 Requesting Physician: RUDDY Primary Care Provider: Mason Douglas MD Medical Summary: DIAGNOSIS: RECTAL MASS. HPI - Consult Narrative Reason for consult: RECTAL MASS Narrative: Velasquez Cam JR is a pleasant 60 year old gentleman, who presented with rectal bleeding. About 6 weeks ago he had an episode of dark black stool. This occurred again approximately 1 week later. He had no further rectal bleeding until yesterday, morning. The night before last he had an episode of epigastric abdominal pain. Yesterday when he got home from work he noticed that his underwear was s aturated with bright red blood. Shortly after returning home he had an episode of rectal bleeding. In the emergency room,he had another large episode of bright red blood. He reported feeling lightheaded however his orthostatic blood pressures were negative. He uses aspirin as needed but not daily. He denies ease of any Motrin or similar medications. He does admit to drinking beer on an almost daily basis. He drinks 1-2 cases of beer per week averaging about 7 beers per day. He denies any previous history of GI bleeding. He has never had a colonoscopy. His blood pressure has been stable. He was noted to be heme mildly tachycardic. H/H was 13.4/39.7 with no baseline for comparison. He received IV fluid, type and cross was done. CT scan of the abdomen: Showed a possible cyst or area of bleeding in the rectum. He was evaluated by GI in the emergency department and had a colonoscopy, yesterday morning. This revealed: Post-op diagnosis: Rectal lesion most c/ with cancer, just in from Ano-rectal verge. He has been seen by surgery. Review of Systems - Constitutional Reports system reviewed and no additional complaints, except as documented, Reports lack of energy, Reports weakness, Reports weight loss - Eyes Reports system reviewed and no additional complaints, except as documented, Reports blurry vision - ENT Reports system reviewed and no additional complaints, except as documented - Cardiovascular Reports system reviewed and no additional complaints, except as documented, Denies chest pain at rest - Respiratory Reports no additional respiratory complaints, Denies chest congestion - Gastrointestinal Reports system reviewed and no additional complaints, except as documented, Reports bright, red blood in stools, Denies abdominal pain - Genitourinary Genitourinary: Reports no additional male genitourinary complaints - Musculoskeletal Reports system reviewed and no additional complaints, except as documented - Integumentary/Breasts Skin/Breast: Reports no additional skin complaints - Neurologic Denies abnormal speech, Denies headache(s), Denies memory loss, Denies convulsions - Psychiatric Reports system reviewed and no additional complaints, except as documented, Reports anxiety - Endocrine Reports no additional endocrine complaints, Denies excessive sweating - Hematologic/Lymphatic Reports system reviewed and no additional complaints, except as documented, Denies easy bruising - Allergic/Immunologic Reports system reviewed and no additional complaints, except as documented, Denies GI upset with certain foods PMFSH Medical History: Medical History (Last Updated 11/05/20 @ 09:46 by Kia Olivares) Alcohol dependence Anxiety Dizziness History of perforated ear drum HTN (hypertension) Functional capacity: independent ambulation Patient : No Family History: Family History (Last Updated 11/05/20 @ 09:50 by Kia Olivares) Sister Neuropathy Breast cancer Family/Other Colorectal cancer Brother Pancreatic cancer Mother Angina at rest Neuropathy Open angle primary glaucoma Family history: reviewed and not pertinent Smoking status: Never smoker Home Medications and Allergies Current Medications: Current Medications Generic Name Dose Route Start Last Admin Trade Name Freq PRN Reason Stop Dose Admin Acetaminophen 650 mg 10/18/20 20:40 Acetaminophen 325 Mg Tablet PO Q6H PRN Pain, Mild (Pain Scale 1-3) Atenolol 50 mg 10/19/20 09:00 10/19/20 08:18 Atenolol 50 Mg Tablet PO 50 mg DAILY [facility] Administration Protocol Docusate Sodium 100 mg 10/18/20 20:40 Docusate Sodium 100 Mg Capsule PO DAILY PRN Constipation Folic Acid 1 mg 10/19/20 09:00 10/19/20 08:21 Folic Acid 1 Mg Tablet PO Not Given DAILY [facility] Medication 1 each 10/19/20 09:00 No Benzodiazepines MISCELLANE DAILY [facility] Ondansetron HCl 4 mg 10/18/20 20:40 Ondansetron Hcl 4 Mg/2 Ml Vial IVPUSH Q8H PRN Nausea and Vomiting Ondansetron HCl 4 mg 10/19/20 08:25 Ondansetron Hcl 4 Mg/2 Ml Vial IVPUSH ONCE PRN Nausea and Vomiting Pharmacy Consult 1 each 12/11/20 10:49 Consult Rx Perform Med Rec MISCELLANE ONCE PRN Consult order Pharmacy Consult 1 each 10/18/20 14:37 Consult Rx Etoh Phenob Dosing MISCELLANE ONCE PRN Consult order Protocol Phenobarbital 45 mg 10/19/20 09:00 10/19/20 21:50 Phenobarbital 15 Mg Tablet PO 10/20/20 21:01 45 mg BID [facility] Administration Phenobarbital 15 mg 10/21/20 09:00 Phenobarbital 15 Mg Tablet PO 10/22/20 21:01 BID [facility] Phenobarbital 15 mg 10/23/20 09:00 Phenobarbital 15 Mg Tablet PO 10/24/20 09:01 DAILY [facility] Sodium Chloride 3 ml 10/18/20 20:40 10/20/20 00:06 0.9 % Sodium Chloride Flush 3 Ml Syringe IVFLUSH 3 ml QSHIFT [facility] Administration Thiamine HCl 100 mg 10/19/20 09:00 10/19/20 08:21 Thiamine Hcl 100 Mg Tablet PO Not Given DAILY [facility] Valsartan 80 mg 10/19/20 09:00 10/19/20 08:19 Valsartan 80 Mg Tablet PO 80 mg DAILY [facility] Administration Protocol Home Medications Medication Instructions Recorded Confirmed Type atenolol 50 mg PO DAILY 10/18/20 11/05/20 History multivitamin 1 tab PO DAILY 10/18/20 11/05/20 History valsartan 1 tab PO DAILY 10/18/20 11/05/20 History omega [id number]-[id number] oil [[place] 3 1 cap PO DAILY 11/05/20 11/05/20 History Fish Oil] Allergies Allergy/AdvReac Type Severity Reaction Status Date / Time lisinopril AdvReac Cough Verified 10/18/20 14:32 Physical Exam Vital signs: Vital Signs Temp 97.9 F 10/20/20 07:20 Pulse 65 10/20/20 07:20 Resp 18 10/20/20 07:20 BP 138/77 10/20/20 07:20 Pulse Ox 98 10/20/20 07:20 Intake & Output 10/19/20 10/20/20 10/20/20 18:59 06:59 18:59 Intake Total 170 / 170 Output Total 850 / 1250 400 / 1250 Balance -680 / -1080 -400 / -1080 Urine Output (Average ml/kg/hr) 0.89 0.42 Intake: Intake, Oral Amount 120 / 120 Intake, Other Amount 50 / 50 Output: Output, Urine Amount 850 / 1250 400 / 1250 Other: IV Intake, Intraoperative 800 Amount NPO Yes Lunch % Eaten 100% Number of Incontinent Voids 1 Number of Unmeasured Voids 2 Last Bowel Movement 10/19/20 Stool Bathroom Stool Amount Small Stool Consistency Liquid Weight 79.379 kg - Constitutional Present: no acute distress - Routine HEENT Exam Head: Present: normal inspection ENT: Present: mucous membranes moist - Routine Neck Exam Present: supple - Routine Respiratory Exam Present: CTAB - Routine Cardiovascular Exam Cardiovascular: Present: RRR, S1, S2 - Routine Abdominal Exam Present: soft, nontender - Routine Rectal Exam Visual: Present: palpable mass - Routine Extremities Exam Present: nontender - Routine Skin Exam Present: intact - Routine Neurological Exam Present: alert, oriented X3 - Detailed Neurological Exam: Coma Scale Eye Opening: Spontaneous (4) Verbal Response: Oriented (5) Motor Response: Obeys commands (6) Joseph Coma Scale Total: 15 - Routine Psychiatric Exam Present: normal affect Hem/Onc Consult Result - Labs CBC & Chem 7: 10/21/20 05:47 10/19/20 05:44 Labs: Short CBC 10/20/20 Range/Units 06:20 WBC 3.9 L (4.8-10.8) X10*3/uL Hgb 12.8 L (14.0-18.0) g/dl Hct 38.9 L (42-52) % Plt Count 159 L (160-400) X10*3/uL Assessment and Plan (1) Rectal mass Status: Acute This is a pleasant 60 year old gentleman, who presents with abdominal pain and rectal bleeding. His sister and a maternal cousin had rectal cancer. He has been noted to have a rectal mass, most consistent with rectal cancer. Biopies have been taken. CEA level 1.7. He needs further staging work up, prior to deciding definitive treatment. PLAN: Proceed with a PET scan, as an out patient. Endoscopic ultrasound with help determine extent of tumor, locally. If he has localized disease, would recommend neoadjuvant chemo/radiation therapy, with 5 FU, Leucovorin & Oxaliplatin and then Xeloda along with radiation. Then attempt at surgery. Thanks, CC: Dr. Carlton Yuan.
[2020-10-20] MEDS: PHENobarbitaL 15 MG TABLET 45 MG PO ×2 (09:20→22:02)
[2020-10-20] MEDS: Folic Acid 1 MG TABLET PO (09:21)
[2020-10-20] MEDS: atenoloL 50 MG TABLET PO (09:21)
[2020-10-20] MEDS: Valsartan 80 MG TABLET PO (09:21)
[2020-10-20] MEDS: Thiamine HCL 100 MG TABLET PO (09:21)
--- NOTE | 2020-10-20 11:58 | PM.PNGS ---
Subjective Subjective Date of Service: 10/20/20 Interval history: No new complaints. Waiting to have MRI done tomorrow. No further rectal bleeding. Physical Exam Vital Signs: Vital Signs: Last Vital Signs Temp 98.3 F 10/20/20 10:54 Pulse 78 10/20/20 10:54 Resp 18 10/20/20 10:54 BP 125/66 10/20/20 10:54 Pulse Ox 99 10/20/20 10:54 Body Mass Index 26.6 Laboratory Results - last 24 hr 10/20/20 10/20/20 06:20 06:20 WBC 3.9 L RBC 4.07 L Hgb 12.8 L Hct 38.9 L MCV 95.6 MCH 31.4 MCHC 32.9 RDW 11.9 Plt Count 159 L MPV 9.8 Absolute Nucleated RBC 0.000 Nucleated RBC % (a uto) 0.0 Carcinoembryonic A g 1.70 Const: Other: Alert, appears comfortable GI: Other: Soft, round, nondistended Progress Note: A&P Assessment and plan (1) Rectal mass: Problem details: Mass consistent with carcinoma identified at time of colonoscopy. There appears to be an associated villous component with entire lesion encircling approximately 70% of distal rectal circumference Status: Acute Assessment and Plan: Findings are consistent with a rectal cancer. He is aware of this. We reviewed the spectrum of treatment options in some detail this morning. He had a number of questions about nontraditional treatments. He understands that more specific recommendations cannot be made until biopsy and MRI results are available, but also is aware that, based upon findings so far, it appears likely that the most appropriate next step in treatment will be radiation and chemotherapy. (2) Acute GI bleeding: Status: Acute Assessment and Plan: No evidence of recurrent bleeding. Fall Risk Details Current Medications: Current Medications Generic Name Dose Route Start Last Admin Trade Name Freq PRN Reason Stop Dose Admin Acetaminophen 650 mg 10/18/20 20:40 Acetaminophen 325 Mg Tablet PO Q6H PRN Pain, Mild (Pain Scale 1-3) Atenolol 50 mg 10/19/20 09:00 10/20/20 09:21 Atenolol 50 Mg Tablet PO 50 mg DAILY [facility] Administration Protocol Docusate Sodium 100 mg 10/18/20 20:40 Docusate Sodium 100 Mg Capsule PO DAILY PRN Constipation Folic Acid 1 mg 10/19/20 09:00 10/20/20 09:21 Folic Acid 1 Mg Tablet PO 1 mg DAILY [facility] Administration Medication 1 each 10/19/20 09:00 No Benzodiazepines MISCELLANE DAILY [facility] Ondansetron HCl 4 mg 10/18/20 20:40 Ondansetron Hcl 4 Mg/2 Ml Vial IVPUSH Q8H PRN Nausea and Vomiting Ondansetron HCl 4 mg 10/19/20 08:25 Ondansetron Hcl 4 Mg/2 Ml Vial IVPUSH ONCE PRN Nausea and Vomiting Pharmacy Consult 1 each 10/18/20 10:49 Consult Rx Perform Med Rec MISCELLANE ONCE PRN Consult order Pharmacy Consult 1 each 10/18/20 14:37 Consult Rx Etoh Phenob Dosing MISCELLANE ONCE PRN Consult order Protocol Phenobarbital 45 mg 10/19/20 09:00 10/20/20 09:20 Phenobarbital 15 Mg Tablet PO 10/20/20 21:01 45 mg BID [facility] Administration Phenobarbital 15 mg 10/21/20 09:00 Phenobarbital 15 Mg Tablet PO 10/22/20 21:01 BID [facility] Phenobarbital 15 mg 10/23/20 09:00 Phenobarbital 15 Mg Tablet PO 10/24/20 09:01 DAILY [facility] Sodium Chloride 3 ml 10/18/20 20:40 10/20/20 09:21 0.9 % Sodium Chloride Flush 3 Ml Syringe IVFLUSH 3 ml QSHIFT [facility] Administration Thiamine HCl 100 mg 10/19/20 09:00 10/20/20 09:21 Thiamine Hcl 100 Mg Tablet PO 100 mg DAILY [facility] Administration Valsartan 80 mg 10/19/20 09:00 10/20/20 09:21 Valsartan 80 Mg Tablet PO 80 mg DAILY [facility] Administration Protocol Time Spent With Patient Time: Total time spent is greater than 50% in coordination of care (as documented) at patient's floor/unit and/or counseling patient: Time with patient: 15 - 24 minutes
--- NOTE | 2020-10-20 13:49 | P.PNIM_ITS ---
Subjective Subjective Date of Service: 10/20/20 Interval History: the patient was seen and evaluated this morning Laying in bed, feels comfortable Denies any fever, chills or shortness of breath reported passing a clot but no bleeding overnight No reported other overnight events. Systemic review: No fever, chills or weakness No chest pain, palpitation No shortness of breath or coughing No abdominal pain, nausea or vomiting No urinary symptoms No any rash or wounds Physical Exam Vital Signs: Vital Signs: Last Vital Signs Temp 98.3 F 10/20/20 10:54 Pulse 78 10/20/20 10:54 Resp 18 10/20/20 10:54 BP 125/66 10/20/20 10:54 Pulse Ox 99 10/20/20 10:54 Body Mass Index 26.6 Constitutional : Alert, oriented, not in distress Neck : Normal inspection, Supple Cardiovascular : RRR, S1 S2, no lower extremity edema Respiratory : Good bilateral air entry, no crackles, wheezes or rhonchi Gastrointestinal: soft, lax, Normal bowel sounds, Non tender Skin : Warm/Dry, No rash Neurological : Alert & oriented x3, No focal deficit Objective Data Current Medications Generic Name Dose Route Start Last Admin Trade Name Freq PRN Reason Stop Dose Admin Acetaminophen 650 mg 10/18/20 20:40 Acetaminophen 325 Mg Tablet PO Q6H PRN Pain, Mild (Pain Scale 1-3) Atenolol 50 mg 10/19/20 09:00 10/20/20 09:21 Atenolol 50 Mg Tablet PO 50 mg DAILY [facility] Administration Protocol Docusate Sodium 100 mg 10/18/20 20:40 Docusate Sodium 100 Mg Capsule PO DAILY PRN Constipation Folic Acid 1 mg 10/19/20 09:00 10/20/20 09:21 Folic Acid 1 Mg Tablet PO 1 mg DAILY [facility] Administration Medication 1 each 10/19/20 09:00 No Benzodiazepines MISCELLANE DAILY [facility] Ondansetron HCl 4 mg 10/18/20 20:40 Ondansetron Hcl 4 Mg/2 Ml Vial IVPUSH Q8H PRN Nausea and Vomiting Ondansetron HCl 4 mg 10/19/20 08:25 Ondansetron Hcl 4 Mg/2 Ml Vial IVPUSH ONCE PRN Nausea and Vomiting Pharmacy Consult 1 each 10/18/20 10:49 Consult Rx Perform Med Rec MISCELLANE ONCE PRN Consult order Pharmacy Consult 1 each 10/18/20 14:37 Consult Rx Etoh Phenob Dosing MISCELLANE ONCE PRN Consult order Protocol Phenobarbital 45 mg 10/19/20 09:00 10/20/20 09:20 Phenobarbital 15 Mg Tablet PO 10/20/20 21:01 45 mg BID [facility] Administration Phenobarbital 15 mg 10/21/20 09:00 Phenobarbital 15 Mg Tablet PO 10/22/20 21:01 BID [facility] Phenobarbital 15 mg 10/23/20 09:00 Phenobarbital 15 Mg Tablet PO 10/24/20 09:01 DAILY [facility] Sodium Chloride 3 ml 10/18/20 20:40 10/20/20 09:21 0.9 % Sodium Chloride Flush 3 Ml Syringe IVFLUSH 3 ml QSHIFT [facility] Administration Thiamine HCl 100 mg 10/19/20 09:00 10/20/20 09:21 Thiamine Hcl 100 Mg Tablet PO 100 mg DAILY [facility] Administration Valsartan 80 mg 10/19/20 09:00 10/20/20 09:21 Valsartan 80 Mg Tablet PO 80 mg DAILY [facility] Administration Protocol Labs CBC & Chem 7: 10/20/20 06:20 10/19/20 05:44 Assessment and Plan (1) Acute GI bleeding: Status: Acute (2) HTN (hypertension): Status: Acute (3) Alcohol dependence: Status: Inactive Assessment and Plan: This is a 60-year-old male with a history of hypertension, alcohol abuse who presents with rectal bleeding GI bleeding Rectal mass Likely rectal cancer Hemoglobin stable CT scan shows bleeding in the distal sigmoid colon or rectum with surrounding tissue abnormalities Colonoscopy showed ulcer covered with a clot and mass in the rectal area, biopsies taking Surgery input appreciated pelvic MRI planned for tomorrow Advanced diet as tolerated Oncology input appreciated, to do PET scan as outpatient, consider endoscopic ultrasound Alcohol dependence Continue phenobarbital supplementation with thiamine, folic acid care team evaluation prior to discharge Hypertension Blood pressure is somewhat elevated May be in part related to alcohol withdrawal continue atenolol, valsartan dvt ppx mechanical devices
--- NOTE | 2020-10-20 15:37 | HO.POSTANES ---
Post Anesthesia Evaluation Post Anesthesia Evaluation Vital Signs: Vital Signs Temp Pulse Resp BP Pulse Ox 10/20/20 10:54 98.3 F 78 18 125/66 99 10/20/20 09:21 65 138/77 10/20/20 08:25 98 10/20/20 07:20 97.9 F 65 18 138/77 98 10/20/20 03:55 98.4 F 66 18 137/79 98 Anesthesia: Monitored Mental Status: Awake Pain Control: Satisfactory Nausea/Vomiting: None Hydration: Adequate Anesthesia-Related Issues: No Anes. Related Issues
--- NOTE | 2020-10-20 17:31 | MHC.CARE ---
CARE Team responded to consult request to speak with this 60 year-old man who was admitted to the hospital for treatment of lower GI bleeding, is a daily drinker, and now appears to have cancer. Lengthy conversation with patient who was easily engaged and talkative, spoke almost [id number] about the numerous and compounding stressors he is facing at this time. Stated that he is most worried about his who is physically disabled and suffers from mental health issues, does not know how he will manage if patient is unable to provide and care for him. Patient is already reviewing possible scenarios going forward such as assisted living, he hopes to keep working but has care home options, working with the bank regarding his mortgage and finances. In terms of alcohol use, patient said he is able to cut back but not commit to abstaining, is considering supplementing with cannabis. Discussed harm reduction, he seemed open to the idea a thoughtful approach to cutting back. Offered resources such as self-help and online recovery which patient declined. Has never been in therapy and though he believes it may be helpful, feels he does not have the time as he works over 50 hours a week and day to day responsibilities at home and now will be likely begin cancer treatment. Patient stated he may contact [employer] through his work when he is clearer about his plan of care. He accepted information about a hoarding support group, harm reduction and CARE team information should he change his mind. Communicated with and RN
[2020-10-21] VITALS (7 sets, daily range): BP systolic 121–142; BP diastolic 68–86; PULSE 61–78; RESP 18–20; TEMP 36.3–36.8; O2SAT 96–99
--- NOTE | 2020-10-21 | MR_ITS ---
EXAMINATION: MR PELVIS WITHOUT AND WITH CONTRAST CLINICAL INFORMATION: GI bleed. Rectal mass. COMPARISON: CT abdomen and pelvis with contrast 10/18/2020. TECHNIQUE: MRI pelvis is performed without and with use of 8 mL Gadavist gadolinium contrast. No rectal contrast. Imaging is performed in 3 planes. Postcontrast imaging in axial plane. FINDINGS: There is heterogeneous signal in the rectal lumen. The rectal wall appears uniform and there is no visible rectal wall mass. The serosal surface is unremarkable. The perirectal fat is normal. There is no deep pelvic or perirectal adenopathy. No inguinal adenopathy. There is no ascites or fluid collection. There is nonspecific high signal in the presacral fat on T2. Following contrast, this area shows normal enhancing and nondisplaced vasculature extending through this area. There is no mass effect or reactive change in the bone. Finding is of doubtful significance. There appears to be a prior TURP defect within the prostate. The seminal vesicles are symmetric. Pelvic side wall soft tissues are symmetric. There is some mild uniform thickening of the bladder wall consistent with the CT likely related to prior chronic bladder outlet obstruction. Bone marrow signal is unremarkable. MR/MR pelvis wo/w con IMPRESSION: 1. No visible tumor in rectal wall. No transrectal extension. Perirectal soft tissues unremarkable. 2. No perirectal or pelvic adenopathy. 3. Prior TURP defect prostate. Mild bladder wall thickening. 4. Non-specific high T2 signal presacral soft tissues with normal vasculature extending through area without displacement. Finding of doubtful significance. Bone marrow signal normal.
[2020-10-21 06:18] LABS: Hematocrit 37.3 % (42-52); Hemoglobin 12.5 g/dl (14.0-18.0); Mean Corpuscular HGB Conc 33.5 g/dl (31.0-36.0); Mean Corpuscular Hemoglobin 31.8 pg (27.0-33.0); Mean Corpuscular Volume 94.9 fL (80-98); Mean Platelet Volume 9.9 fL (9.4-12.4); Platelet Count 176 X10*3/uL (160-400); Red Blood Count 3.93 X10*6/uL (4.60-5.80); Red Cell Distribution Width 11.9 % (11.0-16.0); White Blood Count 3.1 X10*3/uL (4.8-10.8)
[2020-10-21] MEDS: atenoloL 50 MG TABLET PO (11:05)
[2020-10-21] MEDS: Thiamine HCL 100 MG TABLET PO (11:06)
[2020-10-21] MEDS: PHENobarbitaL 15 MG TABLET PO (11:06)
[2020-10-21] MEDS: 0.9 % Sodium Chloride Flush 3 ML SYRINGE IVFLUSH ×2 (11:07→14:43)
[2020-10-21] MEDS: Valsartan 80 MG TABLET PO (11:07)
[2020-10-21] MEDS: Folic Acid 1 MG TABLET PO (11:07)
--- NOTE | 2020-10-21 11:15 | PM.PNGS ---
Subjective Subjective Date of Service: 10/21/20 Interval history: Feels well. Waiting for MRI, anticipates he will go home afterward. No rectal bleeding. Physical Exam Vital Signs: Vital Signs: Last Vital Signs Temp 97.9 F 10/21/20 08:00 Pulse 78 10/21/20 11:07 Resp 18 10/21/20 08:00 BP 137/76 10/21/20 11:07 Pulse Ox 98 10/21/20 08:00 Body Mass Index 26.6 Const: General: healthy appearing, no acute distress and alert Progress Note: A&P Assessment and plan (1) Rectal mass: Problem details: Mass consistent with carcinoma identified at time of colonoscopy. There appears to be an associated villous component with entire lesion encircling approximately 70% of distal rectal circumference Status: Acute Assessment and Plan: Discussed follow up plan with him. He understands that we need the MRI and biopsy results before we can make further recommendations. He will follow up in the office with Dr. Vincent. Discussed with Dr. Forrester as well. Fall Risk Details Current Medications: Current Medications Generic Name Dose Route Start Last Admin Trade Name Freq PRN Reason Stop Dose Admin Acetaminophen 650 mg 10/18/20 20:40 Acetaminophen 325 Mg Tablet PO Q6H PRN Pain, Mild (Pain Scale 1-3) Atenolol 50 mg 10/19/20 09:00 10/21/20 11:05 Atenolol 50 Mg Tablet PO 50 mg DAILY [facility] Administration Protocol Docusate Sodium 100 mg 10/18/20 20:40 Docusate Sodium 100 Mg Capsule PO DAILY PRN Constipation Folic Acid 1 mg 10/19/20 09:00 10/21/20 11:07 Folic Acid 1 Mg Tablet PO 1 mg DAILY [facility] Administration Medication 1 each 10/19/20 09:00 No Benzodiazepines MISCELLANE DAILY [facility] Ondansetron HCl 4 mg 10/18/20 20:40 Ondansetron Hcl 4 Mg/2 Ml Vial IVPUSH Q8H PRN Nausea and Vomiting Ondansetron HCl 4 mg 10/19/20 08:25 Ondansetron Hcl 4 Mg/2 Ml Vial IVPUSH ONCE PRN Nausea and Vomiting Pharmacy Consult 1 each 10/18/20 10:49 Consult Rx Perform Med Rec MISCELLANE ONCE PRN Consult order Pharmacy Consult 1 each 10/18/20 14:37 Consult Rx Etoh Phenob Dosing MISCELLANE ONCE PRN Consult order Protocol Phenobarbital 15 mg 10/21/20 09:00 10/21/20 11:06 Phenobarbital 15 Mg Tablet PO 10/22/20 21:01 15 mg BID [facility] Administration Phenobarbital 15 mg 10/23/20 09:00 Phenobarbital 15 Mg Tablet PO 10/24/20 09:01 DAILY [facility] Sodium Chloride 3 ml 10/18/20 20:40 10/21/20 11:07 0.9 % Sodium Chloride Flush 3 Ml Syringe IVFLUSH 3 ml QSHIFT [facility] Administration Thiamine HCl 100 mg 10/19/20 09:00 10/21/20 11:06 Thiamine Hcl 100 Mg Tablet PO 100 mg DAILY [facility] Administration Valsartan 80 mg 10/19/20 09:00 10/21/20 11:07 Valsartan 80 Mg Tablet PO 80 mg DAILY [facility] Administration Protocol Time Spent With Patient Time: Total time spent is greater than 50% in coordination of care (as documented) at patient's floor/unit and/or counseling patient: Time with patient: less than 15 minutes
--- NOTE | 2020-10-21 14:52 | MHC.CM.PN ---
per rounds possible dc today plan remanins home no sercveis
--- NOTE | 2020-10-21 16:00 | PM.DS ---
DS: Providers Provider Date of admission: 10/18/20 14:53 Primary care physician: Mason Douglas MD Consults: 10/18/20 14:53 Consult to Gastroenterology Routine Consulting Provider: Yessica Cespedes Reason for consultation: gib Has provider been notified: No Consult to General Surgery Routine Consulting Provider: Yessica Cespedes Reason for consultation: gib; abnormal CT ?cyst rectum Has provider been notified: No 10/19/20 12:21 Consult to Hematology / Oncology Routine Consulting Provider: [facility] Oncology/Hematology Reason for consultation: evaluation of rectal mass\cancer. 10/19/20 14:37 Consult to Care Team Routine Comment: Reason for consultation: alcohol abuse for your e theval. DS: Diagnosis Discharge Diagnosis (1) Rectal mass: Status: Acute (2) Acute GI bleeding: Status: Resolved (3) Dizziness: (4) Alcohol dependence: Status: Resolved DS: Medications Discharge Medications Home Medications: Home Medications Medication Instructions Recorded Confirmed atenolol 50 mg PO DAILY 10/18/20 10/18/20 multivitamin 1 tab PO DAILY 10/18/20 10/18/20 valsartan 1 tab PO DAILY 10/18/20 10/18/20 DS: Summary Hospital Course Hospital Course: Admission note HPI This is a 60-year-old male who presents to the emergency department with rectal bleeding. About 6 weeks ago he had an episode of dark black stool. This occurred again approximately 1 week later. He had no further rectal bleeding until this morning. Last night he had an episode of epigastric abdominal pain. Today when he got home from work he noticed that his underwear was saturated with bright red blood. Shortly after returning home he had an episode of rectal bleeding. He came to the emergency department for evaluation and had another large episode of bright red blood. He reported feeling lightheaded however his orthostatic blood pressures were negative. He uses aspirin as needed but not daily. He denies ease of any Motrin or similar medications. He does admit to drinking beer on an almost daily basis. He drinks 1-2 cases of beer per week averaging about 7 beers per day. He denies any previous history of GI bleeding. He has never had a colonoscopy. Today his blood pressure has been stable. He was noted to be heme mildly tachycardic. H/H was 13.4/39.7 with no baseline for comparison. He received IV fluid, type and cross was done and he underwent CT scan of the abdomen which showed a possible cyst or area of bleeding in the rectum. He was evaluated by GI in the emergency department with plan for colonoscopy in the morning. Hospital course The patient was admitted to the hospital for evaluation and treatment of her rectal bleeding. He had episodic bleeding during the 1st and the hospital. His aspirin was stopped and bleeding. The next day. He got preparation for colonoscopy and it was done by Dr. Cespedes who reported that the Mass consistent with carcinoma identified at time of colonoscopy. There appears to be an associated villous component with entire lesion encircling approximately 70% of distal rectal circumference. Biopsies were done and sent for pathology. The patient did not have any more bleeding since colonoscopy and his hemoglobin level has been stable since then. He was evaluated by surgery Dr. Vincent and oncologist Dr. Chahal who recommended further workup including PET scan and possible rectal ultrasound. It seems the treatment plan will be combined radiation and chemotherapy at the beginning followed by surgery pending the result of biopsies and rest of images. An MRI was done for the pelvic area at the day of discharge for further staging of the disease. The patient was advised to quit drinking alcohol at all. He was kept on phenobarbital during the hospital stay to avoid any alcohol withdrawal. Aspirin will be discontinued at time of discharge until he sees Dr. Chahal. Time Spent with Patient Time attestation: Total time spent providing and/or coordinating discharge services: Physical Exam Vital Signs: Vital Signs: Last Vital Signs Temp 97.3 F 10/21/20 15:41 Pulse 61 10/21/20 15:41 Resp 18 10/21/20 15:41 BP 132/86 10/21/20 15:41 Pulse Ox 99 10/21/20 15:41 Body Mass Index 26.6 Constitutional : Alert, oriented, not in distress Neck : Normal inspection, Supple Cardiovascular : RRR, S1 S2, no lower extremity edema Respiratory : Good bilateral air entry, no crackles, wheezes or rhonchi Gastrointestinal: soft, lax, Normal bowel sounds, Non tender Skin : Warm/Dry, No rash Neurological : Alert & oriented x3, No focal deficit DS: Data Data Completed and Pending Pending studies at discharge: Pending at discharge 10/19/20 09:30 Surgical [PTH] Routine Labs on day of discharge: 10/18/20 08:52 ECG 12 lead EKG Stat EKG Documentation DIRECTED 10/18/20 08:53 CT abdomen pelvis w con Stat 10/18/20 08:54 0.9 % Sodium Chloride 999 ml IV BOLUS ONE 10/18/20 09:01 Lactic Acid Stat Occult Blood, Stool x1 [OBSX1] Stat 10/18/20 09:02 Basic Metabolic Panel Stat Complete Blood Count Auto Diff Stat Hold Lav - Possible Hematology Stat Lipase Stat Liver Panel Stat Magnesium Stat Partial Thromboplastin Time Stat Prothrombin Time INR Stat 10/18/20 09:06 Type and Screen Stat 10/18/20 09:10 SARS-CoV2/FLU/RSV Stat 10/18/20 09:56 XR chest 1V Stat 10/18/20 10:38 iohexoL 350 MG/ML [Omnipaque 350 MG/ML] 100 ml IV ONCE ONE 10/18/20 10:39 iohexoL 350 MG/ML [Omnipaque 350 MG/ML] 100 ml IV ONCE ONE 10/18/20 10:46 UA CC w/rflx Micro + Cult Stat 10/18/20 12:29 0.9 % Sodium Chloride 999 ml IV BOLUS ONE 10/18/20 14:27 Complete Blood Count Auto Diff Stat 10/18/20 14:37 Transfer Order Routine 10/18/20 14:45 PHENobarbitaL sodium 218 mg IM ONCE ONE 10/18/20 Lunch NPO Diet 10/18/20 18:00 PHENobarbitaL sodium 164 mg IM Q3H 10/18/20 Dinner Clear Liquid Diet 10/18/20 20:40 IV insert/maintain Q4HR Intake and Output QSHIFTE Vital Signs Q4HR 10/18/20 21:45 bisacodyL [Dulcolax] 5 mg PO ONCE ONE polyethylene glycoL 3350 [Miralax] 17 gm PO Q10M 10/18/20 22:14 Complete Blood Count no Diff Routine 10/19/20 03:15 Flu Vacc [id number](6mos up)/PF [Fluarix Quad ] 0.5 ml IM .ONCE ONE 10/19/20 05:44 Basic Metabolic Panel DAILY@0600 Complete Blood Count Auto Diff DAILY@0600 10/19/20 08:25 Vital Signs Q1H 10/19/20 08:30 Lactated Ringers [Lr] 1,000 ml IVCONT 20 mls/hr 10/19/20 08:50 Lidocaine HCl 1 % MPF [Xylocaine 1 % MPF] 5 ml .ROUTE .STK-MED ONE Midazolam HCl/PF [Versed] 2 mg .ROUTE .STK-MED ONE fentaNYL citrate/PF [Sublimaze] 100 mcg .ROUTE .STK-MED ONE propofoL [Diprivan] 200 mg IVPUSH .STK-MED ONE 10/19/20 09:00 PHENobarbitaL 45 mg PO BID 10/19/20 Breakfast NPO Diet 10/19/20 Lunch Full Liquid Diet 10/20/20 06:20 Carcinoembryonic Antigen Routine Complete Blood Count no Diff DAILY@0600 10/21/20 05:47 Complete Blood Count no Diff DAILY@0600 10/21/20 14:27 GadobutroL [Gadavist] 10 ml IVPUSH ONCE ONE Laboratory Last Values WBC 3.1 X10*3/uL (4.8-10.8) L 10/21/20 05:47 RBC 3.93 X10*6/uL (4.60-5.80) L 10/21/20 05:47 Hgb 12.5 g/dl (14.0-18.0) L 10/21/20 05:47 Hct 37.3 % (42-52) L 10/21/20 05:47 MCV 94.9 fL (80-98) 10/21/20 05:47 MCH 31.8 pg (27.0-33.0) 10/21/20 05:47 MCHC 33.5 g/dl (31.0-36.0) 10/21/20 05:47 RDW 11.9 % (11.0-16.0) 10/21/20 05:47 Plt Count 176 X10*3/uL (160-400) 10/21/20 05:47 MPV 9.9 fL (9.4-12.4) 10/21/20 05:47 Immature Gran % (Auto) 0.2 % (0.0-0.4) 10/19/20 05:44 Neut % (Auto) 60.6 % (45-73) 10/19/20 05:44 Lymph % (Auto) 22.8 % (20-40) 10/19/20 05:44 Stevens % (Auto) 14.0 % (2-11) H 10/19/20 05:44 Eos % (Auto) 1.9 % (0-4) 10/19/20 05:44 Baso % (Auto) 0.5 % (0-2) 10/19/20 05:44 Lymph # (Auto) 0.9 X10*3/uL (1.2-4.9) L 10/19/20 05:44 Stevens # (Auto) 0.6 X10*3/uL (0.1-1.2) 10/19/20 05:44 Eos # (Auto) 0.1 X10*3/uL (0.0-0.4) 10/19/20 05:44 Baso # (Auto) 0.0 X10*3/uL (0.0-0.2) 10/19/20 05:44 Abs Immat Gran (auto) 0.01 X10*3/uL (0.00-0.03) 10/19/20 05:44 Absolute Neuts (auto) 2.5 X10*3/uL (2.0-8.3) 10/19/20 05:44 Absolute Nucleated RBC 0.000 X10*3/uL (0.0-0.012) 10/21/20 05:47 Nucleated RBC % (auto) 0.0 /100WBC (0.0-0.2) 10/21/20 05:47 Hold Purple Top SEE NOTE 10/18/20 09:02 PT 11.5 SEC (10.8-13.0) 10/18/20 09:02 INR 1.0 (0.9-1.1) 10/18/20 09:02 APTT 34.3 SEC (24.1-38.0) 10/18/20 09:02 Sodium 138 mmol/L (135-145) 10/19/20 05:44 Potassium 3.8 mmol/l (3.3-5.1) 10/19/20 05:44 Chloride 106 mmol/L (96-108) 10/19/20 05:44 Carbon Dioxide 24 mmol/L (22-29) 10/19/20 05:44 Anion Gap 12 (12-20) 10/19/20 05:44 BUN 8 mg/dL (9-16) L 10/19/20 05:44 Creatinine 0.70 mg/dL (0.5-1.4) 10/19/20 05:44 Estim Creat Clear Calc 105.8 10/19/20 05:44 Estimated GFR > 60 10/19/20 05:44 Random Glucose 73 mg/dL (60-115) 10/19/20 05:44 Lactic Acid 1.0 mmol/L (0.5-2.0) 10/18/20 09:01 Calcium 8.2 mg/dL (8.4-10.2) L 10/19/20 05:44 Magnesium 2.0 mg/dL (1.6-2.6) 10/18/20 09:02 Total Bilirubin 1.5 mg/dL (0.0-1.0) H 10/18/20 09:02 Direct Bilirubin 0.5 mg/dL (0.0-0.5) 10/18/20 09:02 AST 21 U/L (5-37) 10/18/20 09:02 ALT 20 U/L (0-40) 10/18/20 09:02 Alkaline Phosphatase 94 U/L (39-117) 10/18/20 09:02 Total Protein 7.1 g/dL (6.5-8.0) 10/18/20 09:02 Albumin 4.0 g/dL (3.5-5.0) 10/18/20 09:02 Lipase 10 U/L (8-78) 10/18/20 09:02 Carcinoembryonic Ag 1.70 mg/mL 10/20/20 06:20 Urine Color YELLOW 10/18/20 10:46 Urine Appearance CLEAR 10/18/20 10:46 Urine pH 6.0 (5.0-8.0) 10/18/20 10:46 Ur Specific Moore 1.010 (1.005-1.025) 10/18/20 10:46 Urine Protein NEG MG/DL (NEG-TRACE) 10/18/20 10:46 Urine Glucose (UA) NEG MG/DL (NEG) 10/18/20 10:46 Urine Ketones 5 MG/DL (NEG) 10/18/20 10:46 Urine Blood NEG (NEG) 10/18/20 10:46 Urine Nitrite NEG (NEG) 10/18/20 10:46 Ur Leukocyte Esterase NEG (NEG) 10/18/20 10:46 Stool Occult Blood POS (NEG) 10/18/20 09:01 Coronavirus (PCR) NEGATIVE (Negative) 10/18/20 09:10 Influenza Type A (PCR) NEGATIVE (Negative) 10/18/20 09:10 Influenza Type B (PCR) NEGATIVE (Negative) 10/18/20 09:10 RSV RNA Qual (PCR) NEGATIVE (Negative) 10/18/20 09:10 Blood Type O Positive 10/18/20 09:06 Antibody Screen NEGATIVE 10/18/20 09:06 Discharge Plan Discharge Patient Disposition: Home, Self-Care Referrals: Mason Douglas MD [Primary Care Provider] - Discharge Medications: Continued multivitamin Tablet 1 tab PO DAILY RF: 0 valsartan 80 mg tablet 1 tab PO DAILY RF: 0 atenolol 50 mg tablet 50 mg PO DAILY RF: 0 Discontinued aspirin 81 mg Tablet,Delayed Release (Dr/Ec) 81 mg PO DAILY RF: 0 Discharge Orders: Discharge Order (Routine); Ordered 10/21/20 Ordered By: Sonia Forrester Diet: advance to usual diet Activity on Discharge: As tolerated Discharge Date/Time: 10/21/20 17:45 Visit Report Forms: Patient Portal Discharge page Care Plan Goals: A read below Health Concerns: Read below Plan of Treatment: You have presented to the hospital for complaint of blood with stool. You were evaluated by images concerning for rectal mass. You had a colonoscopy done by Dr. Cespedes from Gastroenterology which was concerning for a mass in your rectal area. Biopsies were done and the results still pending. You were evaluated by Dr. Vincent from surgery. To follow-up with him in few weeks in the office after calling for appointment. You were also seen by Dr. Chahal from Oncology who will see you in the office for further workup treatment plan. Hold aspirin for the time being until discussed with Dr. Chahal We advise you to quit drinking alcohol completely An MRI for your pelvic area was done and the results still pending at the time of discharge, can be followed with Dr. Chahal.
--- NOTE | 2020-10-28 16:03 | MHC.HEMONC ---
MRI Results - Pt called Dr. Chahal's office and left message asking for return call on MRI and bx results (rectal mass). Dr. Chahal is away from the office this week. Therefore, these were reviewed by Dr. Canales. She states, MRI is unremarkable - looks good. Biopsy results consistent with rectal cancer. Left message on pt's vmail to return my call - my phone number/ext left for him.
--- NOTE | 2020-10-29 13:18 | MHC.HEMONC ---
ONCOLOGY APPT - Pt scheduled w Dr. Chahal for 11/05/20 @ 930am. Pt notified. He was reminded to bring his photo ID and Ins. Card/s. He tells me he may have questions w regards to FMLA. I advised him that we have a Soc. Worker who can help him w those concerns. Pt agrees to plan.
--- NOTE | 2020-10-30 11:33 | MHC.HEMONC ---
PET SCAN - Dr Chahal away from office. Per Inpt consult note from Dr. Chahal. PET scan as outpt is mentioned. Spoke w Dr. Canales regarding this. She has put in orders for PET Scan. Jasmyn Viramontes notified of need for PA and scheduling. Ambulatory Order printed out and given to Jasmyn directly to arrange. She agrees to this plan.
--- NOTE | 2020-10-30 11:50 | MHC.HEMONCSW ---
PET SCAN PA WENT TO [facility] CLINICAL REVIEW. CASE# [id number]. WAIT DECISION.
== END 2020-10-21 17:45 | disposition home or self-care (01) | DRG 240 ==
LOC: HO.ED 12:41 → HO.IMC 18:48
PROVIDERS: Internal Medicine Gastroenterology; Physician Assistant Medical; Surgery; Admitting Provider Student in an Organized Health Care Education/Training Program; Emergency Provider Emergency Medicine; PCP Internal Medicine; Visit Provider Student in an Organized Health Care Education/Training Program
PROC: 0DJD8ZZ Inspection of Lower Intestinal Tract, Via Natural or Artificial Opening Endoscopic (ICD-10-PCS; CPT 45378; principal; 2020-10-19 08:30)
DX: C20 Malignant neoplasm of rectum (principal); E78.5 Hyperlipidemia, unspecified; I10 Essential (primary) hypertension; F41.9 Anxiety disorder, unspecified; F10.20 Alcohol dependence, uncomplicated; Z20.828 Contact with and (suspected) exposure to other viral communicable diseases; Z23 Encounter for immunization; Z79.899 Other long term (current) drug therapy
CPT/HCPCS: 0241U; 36415; 71045; 72197; 74177; 80048; 80076; 81003; 82272; 82378; 83605; 83690; 83735; 85025; 85027; 85610; 85730; 86850; 86900; 86901; 88305; 88341; 88342; 90686; 93005; 99204; 99284; 99291; A9585; J2250; J2560; J3010; Q9967

== ENCOUNTER → 2020-11-14 10:00 | Outpatient (BNV) | payer MEDICAID, MEDICARE, OTHER, SELFPAY | PROVIDERS: PCP Internal Medicine; Visit Provider Internal Medicine Medical Oncology | DX: C20 Malignant neoplasm of rectum (principal) | CPT/HCPCS: 99212; 99213; 99214 ==

== ENCOUNTER → 2020-11-14 11:21 | Outpatient (BNVA) | payer OTHER, SELFPAY | PROVIDERS: PCP Internal Medicine; Visit Provider Surgery | DX: C20 Malignant neoplasm of rectum (principal) | CPT/HCPCS: 46600 ==

== ENCOUNTER → 2021-03-26 10:15 | Outpatient (BNVA) | payer OTHER, MEDICAID, SELFPAY | PROVIDERS: PCP Internal Medicine; Visit Provider Surgery | DX: C20 Malignant neoplasm of rectum (principal) | CPT/HCPCS: 46600 ==

== ENCOUNTER 2021-03-31 13:53 | Outpatient (REF) | payer OTHER, MEDICAID, SELFPAY ==
[2021-03-31 17:56] LABS: MANUAL DIFF FLAG NO
[2021-03-31 18:06] LABS: Basophils Percent Auto 0.4 % (0-2); Eosinophils Absolute Auto 0.1 X10*3/uL (0.0-0.4); Eosinophils Percent Auto 1.8 % (0-4); Hematocrit 41.6 % (42-52); Hemoglobin 13.9 g/dl (14.0-18.0); Imm Gran Abs Auto 0.04 X10*3/uL (0.00-0.03); Imm Gran Pct Auto 1.4 % (0.0-0.4); Lymphocytes Absolute Auto 0.7 X10*3/uL (1.2-4.9); Lymphocytes Percent Auto 25.6 % (20-40); Mean Corpuscular HGB Conc 33.4 g/dl (31.0-36.0); Mean Corpuscular Hemoglobin 34.1 pg (27.0-33.0); Mean Platelet Volume 9.4 fL (9.4-12.4); Monocytes Absolute Auto 0.6 X10*3/uL (0.1-1.2); Monocytes Percent Auto 19.9 % (2-11); Neutrophils Absolute Auto 1.4 X10*3/uL (2.0-8.3); Neutrophils Percent Auto 50.9 % (45-73); Platelet Count 211 X10*3/uL (160-400); Red Blood Count 4.08 X10*6/uL (4.60-5.80); Red Cell Distribution Width 13.7 % (11.0-16.0); White Blood Count 2.8 X10*3/uL (4.8-10.8)
[2021-03-31 18:29] LABS: Alanine Aminotransferase 28 U/L (0-40); Albumin Level 4.3 g/dL (3.5-5.0); Alkaline Phosphatase 98 U/L (39-117); Anion Gap 15 (12-20); Aspartate Amino Transferase 25 U/L (5-37); Bilirubin Total 0.9 mg/dL (0.0-1.0); Blood Urea Nitrogen 12 mg/dL (9-16); Calcium 9.9 mg/dL (8.4-10.2); Carbon Dioxide 26 mmol/L (22-29); Chloride 107 mmol/L (96-108); Estimated Glomerular Filt Rate > 60; Glucose Random 82 mg/dL (60-115); Sodium 143 mmol/L (135-145); Total Protein 7.6 g/dL (6.5-8.0)
[2021-03-31 19:34] LABS: Folate 11.7 ng/mL (> or = 4.0); Vitamin B12 255 pg/mL (200-900)
== END 2021-03-31 13:54 | disposition home or self-care (01) ==
LOC: HO.LAB 13:53
PROVIDERS: Absent Provider Internal Medicine Medical Oncology; PCP Internal Medicine; Visit Provider Internal Medicine Gastroenterology
DX: C20 Malignant neoplasm of rectum (principal)
CPT/HCPCS: 36415; 80053; 82378; 82607; 82746; 85025

== ENCOUNTER 2021-04-24 06:20 | Day surgery (SDC) | payer MEDICAID, SELFPAY ==
--- NOTE | 2021-04-22 12:23 | HO.ANESPROP2 ---
Documented by User: Raquel Criss 04/22/21 12:25 HPI - Anesthesia Eval Consult details Narrative: 61yo M for Sigmoidoscopy Flexible s/p [place] with MAC 10/2020 found rectal ca - completed radiation, ? chemo PMFSH Active Problems Active Problems: All Active Problems (Updated 11/22/20 @ 00:01 by Background Daemon) Rectal carcinoma (Acute) History of alcohol abuse (Acute) Neuropathy (Acute) Past Medical History Medical History Alcohol dependence Anxiety Dizziness History of alcohol abuse History of perforated ear drum HTN (hypertension) Neuropathy Rectal carcinoma Family History Family History Sister Neuropathy Breast cancer Family/Other Colorectal cancer Brother Pancreatic cancer Mother Angina at rest Neuropathy Open angle primary glaucoma Surgical History Surgical History History of tympanoplasty of right ear Hx of colonoscopy Social History Social History Household Members: Spouse Housing: House Are you a primary farm or ranch animal caretaker to a significant other at home: No Do you presently have visiting nurse or other home services: No Alcohol intake: current Alcohol intake frequency: a few times a week Alcohol type: beer Patient Tobacco Use Status: Never used Tobacco Use of substances other than those prescribed or required for medical reasons: Yes Substance Use Type: Marijuana Have you been hit, kicked, punched, or otherwise hurt by someone within the past year? If so, by whom?: No Are you DNR?: No Advance Directives: No Advance Directives Information Provided: Yes Nutrition Risks: No Nutritional Risk service: Yes Current occupational status: employed Meds Allergies Allergy/AdvReac Type Severity Reaction Status Date / Time capsaicin [From Capzasin] Allergy Mild Itchy Eyes Verified 03/31/21 13:57 menthol [From Capzasin] Allergy Mild Itchy Eyes Verified 03/31/21 13:57 lisinopril AdvReac Cough Verified 03/31/21 13:57 Home Medications Medication Instructions Recorded Confirmed Last Taken Type atenolol 50 mg PO DAILY 1211/05/20 10/16/20 History 25 mg multivitamin 1 tab PO DAILY 10/18/20 11/05/20 10/17/20 History valsartan 1 tab PO DAILY 10/18/20 11/05/20 10/17/20 History omega 6-bzz-jck-fish oil [[place] 3 1 cap PO DAILY 11/05/20 11/05/20 Unknown History Fish Oil] Vitamin D3 01/31/21 01/31/21 Unknown History milk thistle 150 mg capsule 150 mg PO BID 03/26/21 Unknown History Exam Exam Date and Time: April 22, 2021 1223 Pertinent Lab Results Pertinent Lab Results: Laboratory Tests 03/31/21 03/31/21 16:02 16:02 WBC 2.8 L Hgb 13.9 L Hct 41.6 L Plt Count 211 Sodium 143 Potassium 5.0 Chloride 107 Carbon Dioxide 26 BUN 12 Creatinine 0.84 Narrative Narrative: EKG 10/2020 Vent. Rate : 100 BPM Atrial Rate : 100 BPM P-R Int : 148 ms QRS Dur : 094 ms QT Int : 342 ms P-R-T Axes : 051 -37 024 degrees QTc Int : 441 ms Normal sinus rhythm Left axis deviation Incomplete right bundle branch block Abnormal ECG No previous ECGs available Assessment and Plan Assessment Anesthesia Assessment: Chart Reviewed Documented by User: Inder Carias MD 04/24/21 07:37 [facility] Past Medical History Medical History Alcohol dependence Anxiety Dizziness History of alcohol abuse History of perforated ear drum HTN (hypertension) Neuropathy Rectal carcinoma Family History Family History Sister Neuropathy Breast cancer Family/Other Colorectal cancer Brother Pancreatic cancer Mother Angina at rest Neuropathy Open angle primary glaucoma Surgical History Surgical History History of tympanoplasty of right ear Hx of colonoscopy Social History Social History Household Members: Spouse Housing: House Are you a primary farm or ranch animal caretaker to a significant other at home: No Do you presently have visiting nurse or other home services: No Alcohol intake: current Alcohol intake frequency: a few times a week Alcohol type: beer Patient Tobacco Use Status: Never used Tobacco Use of substances other than those prescribed or required for medical reasons: Yes Substance Use Type: Marijuana Have you been hit, kicked, punched, or otherwise hurt by someone within the past year? If so, by whom?: No Are you DNR?: No Advance Directives: No Advance Directives Information Provided: Yes Nutrition Risks: No Nutritional Risk service: Yes Current occupational status: employed Meds Allergies Allergy/AdvReac Type Severity Reaction Status Date / Time capsaicin [From Capzasin] Allergy Mild Itchy Eyes Verified 03/31/21 13:57 menthol [From Capzasin] Allergy Mild Itchy Eyes Verified 03/31/21 13:57 lisinopril AdvReac Cough Verified 03/31/21 13:57 Home Medications Medication Instructions Recorded Confirmed Last Taken Type atenolol 50 mg PO DAILY 10/18/20 11/05/20 10/16/20 History 25 mg multivitamin 1 tab PO DAILY 10/18/20 11/05/20 10/17/20 History valsartan 1 tab PO DAILY 10/18/20 11/05/20 10/17/20 History omega 3-vhc-qdr-fish oil [[place] 3 1 cap PO DAILY 11/05/20 11/05/20 Unknown History Fish Oil] Vitamin D3 01/31/21 01/31/21 Unknown History milk thistle 150 mg capsule 150 mg PO BID 03/26/21 Unknown History Exam Airway Mallampati Class: I TM Dist: >3cm Neck ROM: Full Loose/Missing/Broken Teeth: No Assessment and Plan Assessment Anesthesia Assessment: Anesthesia Plan Discussed and Chart Reviewed Final Anesthetic Review NPO: Yes ASA Class: III Final Preanesthetic Review: No Changes in Pt Med Stat, Meds/Allgs Chart Reviewed, Consent Obtained/Reviewed and Anes Risks/Benef Reviewed Patient Risk: Intermediate Procedure Risk: Low Anesthetic Plan Anesthetic Plan: MAC: Disposition: Standard PACU
[2021-04-24 06:25] VITALS: BMI 24.6
[2021-04-24 06:34] VITALS: BP 134/98; PULSE 75; RESP 18; TEMP 36.2; O2SAT 98
[2021-04-24] MEDS: Sodium Phosphate,Mono-Dibasic 133 ML ENEMA PR ×2 (06:40→07:00)
--- NOTE | 2021-04-24 06:43 | PC.NURSE ---
last drink 6pm yesterday. pt sts drinks daily 5-6 lite beer daily. pt had colonscopy dec and was admitted for withdrawal anesthrsia will be aware
--- NOTE | 2021-04-24 06:56 | PC.NURSE ---
enemas given x2 per
[2021-04-24] MEDS: Lactated Ringers 1,000 ML 100 ML IVCONT (06:58)
--- NOTE | 2021-04-24 07:08 | PC.NURSE ---
results from enema light lbrown to yellow
--- NOTE | 2021-04-24 07:23 | P.OP_ITS ---
Operative Note Operative Note Date of Service: 04/24/21 Narrative: Pre-op diagnosis: FU of rectal cancer Post-op diagnosis: other (Rectal mass, diverticulosis, rectal polyp) Procedure: FLEXIBLE SIGMOIDOSCOPY TILL 20 CMS WITH BIOPSIES AND HOT SNARE POLYPECTOMY PROCEDURE NOTE Consent: Indications for the procedure and potential complications of bleeding, perforation, reaction to medications and missed diagnosis were discussed with the patient and informed consent was obtained. Instrument: Olympus PCF H 190 L variable stiffness pediatric colonoscope Monitoring: Vital signs and clinical assessment, intermittent blood pressure monitoring, continuous EKG monitoring, Pulse oximetry and Carbon Dioxide monitoring were done throughout the procedure. Procedure: The patient was placed in the left lateral decubitis position and pre-procedure medications were administered. After a digital rectal examination of the ano-rectum, the video colonoscope was inserted into the rectum and advanced through the rectum to 20 cms into the dital sigmoid colon (intended distance). The colonoscope was slowly withdrawn in a retrograde panoramic fashion and the colon mucosa was carefully examined including a retroflexed view of the rectum. Findings and interventions are described below. Procedure Difficulty: Without difficulty Findings: Sigmoid Colon: Moderate diverticulosis Rectum: A few 3-5 mm diminutive appearing polyps - one was biopsied. A 3 cms polypoidal mass at 6 '0' clock position at the anal verge - partially removed with a hot snare. A 2nd 1.5 cms mass at 9 '0' clock position the anal verge - biopsied. Ano-rectum: Colon preparation: Fair Impression and Post Procedure Diagnosis: Flexible sigmoidoscopy Findings: Multiple diminutive appearing rectal polyp - 1 polyp was removed with the cold biopsy Moderate diverticulosis seen in the sigmoid colon A 3 cms polypoidal mass at 6 '0' clock position at the anal verge - partially removed with a hot snare. A 2nd 1.5 cms mass at 9 '0' clock position the anal verge - biopsied. Remaining rectal mucosa appeared normal. Plan: Await pathology results Patient has an appointment on 05/01/21 in the GI Clinic with Lewis Garcia M.D.. Pt has been referred to [facility] for a rectal EUS Above findings were reviewed with the patient. FU with Oncology and surgery after above Surgeon: Lewis Garcia MD Anesthesia: MAC (Naima Pepe CRNA) Was an Bank Operations Officer used for this Procedure?: Yes Bank Operations Officer: Hilario Galdino Ronkese Estimated blood loss (mL): 0 Pathology: other (A. Rectal mass # 1, B. Rectal mass # 2, C. Rectal polyp) Condition: stable Disposition: PACU
--- NOTE | 2021-04-24 07:23 | MHC.SHP ---
Pre-Procedural Eval Section A The patient is an INPATIENT: No Changes since office visit: Yes Patient answered all questions; No Cold of Flu in the past 2 weeks, No New Medical Problems and No Changes in Medication The History & Physical has been completed within 30 days and I have reviewed it.: Yes Section B Chief Complaint: malignant neoplasm of overlapping Allergies: Allergies Allergy/AdvReac Type Severity Reaction Status Date / Time capsaicin [From Capzasin] Allergy Mild Itchy Eyes Verified 03/31/21 13:57 menthol [From Capzasin] Allergy Mild Itchy Eyes Verified 03/31/21 13:57 lisinopril AdvReac Cough Verified 03/31/21 13:57 Plan I have reviewed the history and physical and performed a pertinent physical examination on my patient. No changes have occurred unless specified.
--- NOTE | 2021-04-24 07:33 | PC.NURSE ---
anesthesia and everyone aware of patients history
[2021-04-24 08:16] VITALS: BP 100/63; PULSE 75; RESP 14; TEMP 36.3; O2SAT 98
[2021-04-24 08:31] VITALS: BP 118/82; PULSE 74; RESP 17; TEMP 36.3; O2SAT 100
== END 2021-04-24 08:50 | disposition home or self-care (01) ==
PROVIDERS: PCP Internal Medicine; Visit Provider Internal Medicine Gastroenterology
PROC: 0DJD8ZZ Inspection of Lower Intestinal Tract, Via Natural or Artificial Opening Endoscopic (ICD-10-PCS; CPT 45330; principal; 2021-04-24 07:30)
DX: C21.8 Malignant neoplasm of overlapping sites of rectum, anus and anal canal (principal); K62.89 Other specified diseases of anus and rectum; K62.1 Rectal polyp; K57.30 Diverticulosis of large intestine without perforation or abscess without bleeding; I10 Essential (primary) hypertension; Z79.899 Other long term (current) drug therapy
CPT/HCPCS: 45385; 45380; 88305; J2405

== ENCOUNTER 2021-05-01 06:53 | Outpatient (REF) | payer MEDICAID, SELFPAY ==
--- NOTE | ~2021-05-01 | CT_ITS ---
EXAMINATION: CT ABDOMEN AND PELVIS WITH CONTRAST CLINICAL INFORMATION: Rectal cancer COMPARISON: Previous CT of the abdomen and pelvis and MR of the pelvis October 2020 TECHNIQUE: Multidetector volumetric images were obtained from the superior aspect of the liver through the pubic symphysis following administration 85 mL of Omnipaque 350 intravenous contrast. Sagittal and coronal reformatted images were obtained on the technologist's workstation. Oral contrast: Yes This CT examination was performed using dose optimization techniques as appropriate, variously including the following: *Automated exposure control *Adjustment of mA and/or kV according to patient size (this includes techniques or standardized protocols for targeted exams where dose is matched to indication/reason for exam; i.e. extremities or head) *Use of iterative reconstruction technique DLP: 370 mGy-cm FINDINGS: LUNG BASES: The visualized lung bases are unremarkable. LIVER, GALLBLADDER, AND BILIARY TREE: The liver is normal in size and contour. There are 2 tiny foci of decreased attenuation measuring 3 and 4 mm axial image 1920 junction of the anterior segment of the right lobe and medial segment left lobe of the liver and left lobe of the liver axial image 12 series 3 that are stable. This is difficult to characterize due to small size but may represent cysts. Liver is otherwise unremarkable. The gallbladder is unremarkable. There is no biliary duct dilatation. PANCREAS: Unremarkable. SPLEEN: Unremarkable. ADRENAL GLANDS: Unremarkable. KIDNEYS AND URETERS: There is a small cyst in the lower pole the left kidney that is able. The kidneys are otherwise unremarkable. BLADDER: There may be mild diffuse bladder wall thickening. There is a TURP defect. GASTROINTESTINAL TRACT: There is stool throughout the colon suggestive of constipation. Colon is slightly dilated down to the rectum. No rectal mass is appreciated. There is mild stranding of the fat in the presacral space and stranding of the perirectal fat. The stomach and small bowel are normal. The appendix is unremarkable. ABDOMINAL WALL: There are umbilical and bilateral hernias containing fat. LYMPH NODES: Normal. VASCULAR: Unremarkable. PELVIC VISCERA: Unremarkable. OSSEOUS STRUCTURES: There are mild degenerative changes of the spine and scoliosis. No fracture or bone lesion is seen. CT/CT abdomen pelvis w con IMPRESSION: No rectal mass is seen. Constipation. Stable small liver lesions probably representing cysts. Question mild diffuse bladder wall thickening. Post TURP defect.
[2021-05-01] MEDS: iohexoL 350 MG/ML 100 ML INFUS..BTL IV (09:37)
[2021-05-01] MEDS: Barium Sulfate Oral (Berry) 450 ML ORAL.SUSP 900 ML PO (09:38)
== END 2021-05-01 06:54 | disposition home or self-care (01) ==
LOC: HO.CT 06:53
PROVIDERS: Visit Provider Internal Medicine Medical Oncology
DX: C20 Malignant neoplasm of rectum (principal)
CPT/HCPCS: 74177; Q9967

== ENCOUNTER → 2021-08-13 14:40 | Outpatient (BNVA) | payer MEDICAID, SELFPAY | PROVIDERS: PCP Internal Medicine; Visit Provider Surgery | DX: C20 Malignant neoplasm of rectum (principal); I10 Essential (primary) hypertension; G62.9 Polyneuropathy, unspecified; F10.20 Alcohol dependence, uncomplicated; Z92.21 Personal history of antineoplastic chemotherapy; Z92.3 Personal history of irradiation; Z80.3 Family history of malignant neoplasm of breast; Z80.0 Family history of malignant neoplasm of digestive organs; Z88.6 Allergy status to analgesic agent; Z88.8 Allergy status to other drugs, medicaments and biological substances | CPT/HCPCS: 99212 ==

== ENCOUNTER 2021-08-29 12:30 | Day surgery (SDC) | payer MEDICAID, SELFPAY ==
--- NOTE | ~2021-08-29 | IR_ITS ---
PROCEDURE: IR INSERTION OF TUNNEL CATHETER CLINICAL INFORMATION: Colorectal cancer for chemotherapy. COMPARISON: None TECHNIQUE: Following explaining ultrasound and fluoroscopy-guided placement of right Port-A-Cath procedure, benefits and risk, a written consent was obtained. Preliminary ultrasound imaging through the right neck was obtained. An optimal site was selected and marked. The marked site was cleaned and draped in the usual sterile manner. 1% lidocaine was injected at the right neck marked site. Under sterile ultrasound guidance a single wall needle was advanced through the marked site and the right jugular vein was punctured. After observing venous return a thin guidewire was advanced through the needle and needle withdrawn. A 5 [place] dilator with sheath was advanced over the guidewire. The guidewire and the sheath were anchored to the patient's drape with hemostats. Approximately one-gauze length from the right neck incision 1% lidocaine was injected along the right anterior chest wall. A small skin incision was performed and blunt dissection was performed subcutaneously and a pocket created. The Port-A-Cath chamber was then inserted into the pocket and sutured with two 3-0 nylon sutures. 1% lidocaine was then injected subcutaneously from the right anterior chest wall incision to the right neck incision. A catheter attached to the port on one end and the second attached to blunt tunneler was performed. The blunt tunneler then was tunneled through the subcutaneous soft tissues from the right anterior chest wall region to the right anterior neck wall region and the tunneler and the catheter was pulled through the right anterior neck incision. The catheter was sized to 20 cm. The existent right jugular wire and the dilator were removed. A 0.035 J-wire was advanced through the sheath into the IVC under fluoroscopy guidance. The sheath was removed and 7 [place] Ze[place]ander dilator with sheath was advanced over the guidewire. The guidewire and the dilator was removed. Precut catheter was then inserted through the sheath. The peel-away sheath was slowly removed while the catheter was held in position. The peel-away sheath was completely removed and a single fluoroscopy image was obtained documenting position of the catheter tip. The anterior neck and the chest wall incision was sutured with 3-0 absorbable sutures. The Port-A-Cath was accessed with a Beach needle and aspirated and flushed with heparin saline. Subsequently heparinized saline was injected and the needle withdrawn. Steri-Strips were placed around the suture site for final dressing. Patient tolerate procedure extremely well. Conscious sedation was administered during the exam and patient monitored by the IR team. All elements of maximal sterile barrier technique followed including use of cap, mask, sterile gown, sterile gloves, a sterile full body drape and hand hygiene. Also followed skin preparation with 2% chlorhexidine for cutaneous antisepsis, and sterile ultrasound preparation with sterile gel and probe cover when applicable. FINDINGS: On preliminary ultrasound imaging the right jugular vein is patent. A 6.6 [place] Ze[place]ander 20 cm long Port-A-Cath was inserted under ultrasound fluoroscopy guidance. The catheter was flushed with heparinized saline. There was cheko blood aspiration before flushing with saline and heparin. IR/IR cvc insert central tunnel IMPRESSION: Successful ultrasound and fluoroscopy-guided placement of a 20 cm long 6.6 [place]ander Port-A-Cath with its tip in mid SVC. Fluoroscopy time 0.8 minutes. Dose area product: 216 cGy/cm2.
[2021-08-29 13:04] VITALS: BMI 25.0
[2021-08-29 13:29] LABS: MANUAL DIFF FLAG NO
[2021-08-29 13:31] LABS: Basophils Percent Auto 0.3 % (0-2); Eosinophils Percent Auto 1.3 % (0-4); Hematocrit 40.9 % (42-52); Hemoglobin 13.7 g/dl (14.0-18.0); Imm Gran Abs Auto 0.02 X10*3/uL (0.00-0.03); Imm Gran Pct Auto 0.6 % (0.0-0.4); Lymphocytes Absolute Auto 0.6 X10*3/uL (1.2-4.9); Lymphocytes Percent Auto 19.7 % (20-40); Mean Corpuscular HGB Conc 33.5 g/dl (31.0-36.0); Mean Corpuscular Hemoglobin 32.7 pg (27.0-33.0); Mean Corpuscular Volume 97.6 fL (80-98); Mean Platelet Volume 9.4 fL (9.4-12.4); Monocytes Absolute Auto 0.6 X10*3/uL (0.1-1.2); Monocytes Percent Auto 17.7 % (2-11); Neutrophils Absolute Auto 1.9 X10*3/uL (2.0-8.3); Neutrophils Percent Auto 60.4 % (45-73); Platelet Count 191 X10*3/uL (160-400); Red Blood Count 4.19 X10*6/uL (4.60-5.80); Red Cell Distribution Width 12.1 % (11.0-16.0); White Blood Count 3.1 X10*3/uL (4.8-10.8)
[2021-08-29 13:37] LABS: Prothrombin Time 11.5 SEC (9.9-13.0)
[2021-08-29 13:39] LABS: Partial Thromboplastin Time 36.1 SEC (24.1-38.0)
[2021-08-29 13:46] LABS: Blood Urea Nitrogen 11 mg/dL (9-16); Estimated Glomerular Filt Rate > 60
[2021-08-29 14:15] LABS: Alanine Aminotransferase 19 U/L (0-40); Albumin Level 4.2 g/dL (3.5-5.0); Alkaline Phosphatase 74 U/L (39-117); Anion Gap 13 (12-20); Aspartate Amino Transferase 18 U/L (5-37); Bilirubin Total 0.9 mg/dL (0.0-1.0); Calcium 10.1 mg/dL (8.4-10.2); Carbon Dioxide 27 mmol/L (22-29); Chloride 108 mmol/L (96-108); Glucose Random 96 mg/dL (60-115); Potassium 5.6 mmol/L (3.3-5.1); Sodium 142 mmol/L (135-145); Total Protein 6.8 g/dL (6.5-8.0)
[2021-08-29 15:15] VITALS: BP 137/78; PULSE 70; RESP 16; TEMP 36.8; O2SAT 100
[2021-08-29] MEDS: Lidocaine HCl 1 % MPF 5 ML VIAL SUBCUT (15:29)
[2021-08-29 15:31] VITALS: BP 141/83; PULSE 61; RESP 16; O2SAT 100
[2021-08-29 15:45] VITALS: BP 142/77; PULSE 58; RESP 18
[2021-08-29 16:05] VITALS: BP 108/91; PULSE 81; RESP 18; O2SAT 98
[2021-08-29 16:11] VITALS: BP 121/73; PULSE 73; RESP 18; TEMP 36.7; O2SAT 98
[2021-09-01 08:11] LABS: HBS Num1 55.48 mIU/mL (0-7.99); HBc Num1 0.06 S/CO (0.00-0.79); HBsAGNum1 0.14 S/CO (0.00-0.99); Hepatitis B Core Antibody Nonreactive (Nonreactive); Hepatitis B Surface Antigen Negative (Negative); ~Hepatitis B Surface Antibody REACTIVE (Nonreactive)
[2021-09-01 08:16] LABS: ~HepC Num1 0.13 S/CO (0.00-0.79); ~Hepatitis C Antibody Nonreactive (Nonreactive)
[2021-09-03 08:31] LABS: Hepatitis A Antibody IgM 0.15 Index (0-0.79); ~Hepatitis A Antibody IgM Nonreactive (Nonreactive)
== END 2021-08-29 15:56 | disposition home or self-care (01) ==
PROVIDERS: Internal Medicine Medical Oncology; Radiology Diagnostic Radiology; PCP Internal Medicine; Visit Provider Radiology Diagnostic Radiology
DX: Z45.2 Encounter for adjustment and management of vascular access device (principal); C20 Malignant neoplasm of rectum; I10 Essential (primary) hypertension; R42 Dizziness and giddiness; G62.9 Polyneuropathy, unspecified; F41.1 Generalized anxiety disorder; F10.20 Alcohol dependence, uncomplicated; F12.90 Cannabis use, unspecified, uncomplicated; Z79.899 Other long term (current) drug therapy; Z88.8 Allergy status to other drugs, medicaments and biological substances
CPT/HCPCS: 36415; 36558; 80053; 85025; 85610; 85730; 86704; 86706; 86709; 86803; 87340; 99152; 99153; C1769; C1788; J0690; J1642; J2250; J3010

== ENCOUNTER → 2021-12-15 11:46 | Outpatient (BNVA) | payer MEDICAID, SELFPAY | PROVIDERS: PCP Internal Medicine; Referring Provider Internal Medicine Medical Oncology; Visit Provider Surgery | DX: Z13.89 Encounter for screening for other disorder (principal) | CPT/HCPCS: 99212 ==

== ENCOUNTER → 2022-03-18 13:22 | Outpatient (BNVA) | payer MEDICAID, SELFPAY | PROVIDERS: PCP Internal Medicine; Visit Provider Surgery | DX: C20 Malignant neoplasm of rectum (principal) | CPT/HCPCS: 99212 ==

== ENCOUNTER 2022-04-03 07:07 | Day surgery (SDC) | payer MEDICAID, SELFPAY ==
--- NOTE | 2022-04-02 08:37 | P.CONAN_ITS ---
Documented by User: Raquel Kahn NP 04/02/22 09:24 HPI - Anesthesia Eval Consult details Narrative: 62yo M for Sigmoidoscopy Flexible rectal cancer with radiation and chemo last plt count low at 55. will repeat DOS +ETOH abuse s/p flex sig 04/2021 with TIVA PMFSH Active Problems Active Problems: All Active Problems (Updated 08/19/21 @ 11:30 by Amanda Guthrie [facility]) Rectal carcinoma (Acute) History of alcohol abuse (Acute) Neuropathy (Acute) Past Medical History Medical History Alcohol dependence Anxiety Dizziness History of alcohol abuse History of perforated ear drum HTN (hypertension) Neuropathy Family History Family History Sister Neuropathy Breast cancer Family/Other Colorectal cancer Brother Pancreatic cancer Mother Angina at rest Neuropathy Open angle primary glaucoma Surgical History Surgical History History of tympanoplasty of right ear Hx of colonoscopy Social History Social History Household Members: Spouse Housing: House Are you a primary vision care associate to a significant other at home: No Do you presently have visiting nurse or other home services: No Alcohol intake: current Alcohol intake frequency: former alcohol drinker Alcohol type: beer Patient Tobacco Use Status: Former Tobacco user Tobacco use type: Cigar Smoked in Last 30 Days: No Use of substances other than those prescribed or required for medical reasons: Yes Substance Use Type: Marijuana Substance Use Frequency: Occasionally Are you DNR?: No Advance Directives: No Advance Directives Information Provided: Yes service: Yes Current occupational status: employed Meds Allergies Allergy/AdvReac Type Severity Reaction Status Date / Time capsaicin [From Capzasin] Allergy Mild Itchy Eyes Verified 04/03/22 07:19 cephalexin [From Keflex] Allergy Gastrointestinal Verified 04/03/22 07:19 Upset lisinopril AdvReac Cough Verified 04/03/22 07:19 Home Medications Medication Instructions Recorded Confirmed Last Taken Type atenolol 50 mg tablet 25 mg PO DAILY 10/18/20 03/18/22 08/29/21 History valsartan 80 mg tablet 1 tab PO DAILY 10/18/20 03/18/22 08/29/21 History Vitamin D3 125 mcg PO DAILY 01/31/21 03/18/22 Unknown History citalopram 20 mg tablet (Celexa) 20 mg PO DAILY 08/19/21 03/18/22 08/29/21 History zinc acetate 25 mg (zinc) capsule 25 mg PO DAILY 12/15/21 03/18/22 Unknown Histo ry Exam Exam Date and Time: April 02, 2022 0837 Pertinent Lab Results Pertinent Lab Results: Laboratory Tests 03/13/22 03/13/22 13:00 13:00 WBC 5.5 Sodium 139 Potassium 4.1 Chloride 107 Carbon Dioxide 25 BUN 10 Creatinine 0.69 Laboratory Tests 08/29/21 12:59 PT 11.5 INR 1.0 APTT 36.1 Assessment and Plan Assessment Anesthesia Assessment: Chart Reviewed Documented by User: Samuel Black MD 04/03/22 09:00 HPI - Anesthesia Eval Consult details Narrative: 62yo M for Sigmoidoscopy Flexible rectal cancer with radiation and chemo last plt count low at 53. will repeat DOS finished chemo 3-4 weeks ago +ETOH abuse s/p flex sig 04/2021 with TIVA PMFSH Past Medical History Medical History Alcohol dependence Anxiety Dizziness History of alcohol abuse History of perforated ear drum HTN (hypertension) Neuropathy Family History Family History Sister Neuropathy Breast cancer Family/Other Colorectal cancer Brother Pancreatic cancer Mother Angina at rest Neuropathy Open angle primary glaucoma Family history of problems with anesthesia: No Surgical History Surgical History History of tympanoplasty of right ear Hx of colonoscopy History of Problems with Anesthesia: No Social History Social History Household Members: Spouse Housing: House Are you a primary vision care associate to a significant other at home: No Do you presently have visiting nurse or other home services: No Alcohol intake: current Alcohol intake frequency: former alcohol drinker Al cohol type: beer Patient Tobacco Use Status: Former Tobacco user Tobacco use type: Cigar Smoked in Last 30 Days: No Use of substances other than those prescribed or required for medical reasons: Yes Substance Use Type: Marijuana Substance Use Frequency: Occasionally Are you DNR?: No Advance Directives: No Advance Directives Information Provided: Yes service: Yes Current occupational status: employed Meds Allergies Allergy/AdvReac Type Severity Reaction Status Date / Time capsaicin [From Capzasin] Allergy Mild Itchy Eyes Verified 04/03/22 07:19 cephalexin [From Keflex] Allergy Gastrointestinal Verified 04/03/22 07:19 Upset lisinopril AdvReac Cough Verified 04/03/22 07:19 Home Medications Medication Instructions Recorded Confirmed Last Taken Type atenolol 50 mg tablet 25 mg PO DAILY 10/18/20 03/18/22 08/29/21 History valsartan 80 mg tablet 1 tab PO DAILY 10/18/20 03/18/22 08/29/21 History Vitamin D3 125 mcg PO DAILY 01/31/21 03/18/22 Unknown History citalopram 20 mg tablet (Celexa) 20 mg PO DAILY 08/19/21 03/18/22 08/29/21 History zinc acetate 25 mg (zinc) capsule 25 mg PO DAILY 12/15/21 03/18/22 Unknown History Exam Airway Mallampati Class: III TM Dist: >3cm Neck ROM: Full Loose/Missing/Broken Teeth: Yes (Chipped , poor dention , fillings ) Heart: S1,S2 Lungs: b/l breath sounds Assessment and Plan Assessment Anesthesia Assessment: Anesthesia Plan Discussed Final Anesthetic Review Family History of Problems with Anesthesia: No History of Problems with Anesthesia: No NPO: Yes ASA Class: III Final Preanesthetic Review: Meds/Allgs Chart Reviewed, Consent Obtained/Reviewed and Anes Risks/Benef Reviewed Patient Risk: Intermediate Procedure Risk: Intermediate Anesthetic Plan Anesthetic Plan: MAC: Disposition: Standard PACU
[2022-04-03 07:20] VITALS: BMI 22.0
[2022-04-03 07:33] VITALS: BP 128/83; PULSE 65; RESP 16; TEMP 37; O2SAT 100
[2022-04-03 07:36] LABS: Hematocrit 36.5 % (42.0-52.0); Hemoglobin 11.6 g/dl (14.0-18.0); Mean Corpuscular HGB Conc 31.8 g/dl (31.0-36.0); Mean Corpuscular Hemoglobin 33.6 pg (27.0-33.0); Mean Corpuscular Volume 105.8 fL (80.0-98.0); Mean Platelet Volume 9.3 fL (9.4-12.4); Red Blood Count 3.45 X10*6/uL (4.60-5.80); Red Cell Distribution Width 14.8 % (11.0-16.0)
--- NOTE | 2022-04-03 07:37 | MHC.SHP ---
Pre-Procedural Eval Section A Date of Service: 04/03/22 The patient is an INPATIENT: No Changes since office visit: No Cold of Flu in the past 2 weeks, No New Medical Problems, No Changes in Medication and No Patient answered all questions The History & Physical has been completed within 30 days and I have reviewed it.: Yes Section B Chief Complaint: Malignant neoplasm of rectum Allergies: Allergies Allergy/AdvReac Type Severity Reaction Status Date / Time capsaicin [From Capzasin] Allergy Mild Itchy Eyes Verified 04/03/22 07:19 cephalexin [From Keflex] Allergy Gastrointestinal Verified 04/03/22 07:19 Upset lisinopril AdvReac Cough Verified 04/03/22 07:19 Plan I have reviewed the history and physical and performed a pertinent physical examination on my patient. No changes have occurred unless specified.
[2022-04-03 07:39] LABS: Platelet Count 85 X10*3/uL (160-400); White Blood Count 2.1 X10*3/uL (4.8-10.8)
[2022-04-03] MEDS: Lactated Ringers 1,000 ML 100 ML IVCONT (07:50)
--- NOTE | 2022-04-03 08:16 | W.PM.OPN ---
Operative Note Operative Note Date of Service: 04/03/22 Narrative: Preop diagnosis: Rectal cancer, status post chemotherapy and radiation Postop diagnosis: Rectal cancer status post chemotherapy and radiation with small residual lesion in rectum Procedure: Flexible sigmoidoscopy Surgeon: Chau Vincent MD The patient is a 62-year-old male who had been diagnosed to have a low-lying rectal cancer last year and had undergone chemotherapy and radiation. He had a follow-up MRI earlier this year which did not reveal any residual mass. I therefore schedule him for flexible sigmoidoscopy to directly visualize the rectum and evaluate for lb to neoadjuvant treatment . He understood the technique of the procedure. He was aware of the risks, benefits, and alternatives. He was brought to the operating room. He was placed in left lateral decubitus position under monitored anesthesia care. a full digital rectal exam was done. There were no palpable internal lesions. The tip of the Olympus colonoscope was gently introduced through the anal orifice advanced with insufflation all the way to level 20 cm. I then withdrew the scope with careful examination of the distal sigmoid and rectal mucosa being done with scope withdrawal. At just proximal rectal shelf was note of a slightly elevated lesion, measuring about 1.7 cm which appears to represent previous tumor. This is significantly much smaller than prior to treatment. Photographs of this were taken The rest of the distal rectum in anal canal were unremarkable . The scope was then withdrawn completely with desufflation . He tolerated procedure well. There were no complications noted. He appears to have excellent response to chemotherapy and radiation treatment. However, appears that he may not have complete pathologic response. I will discuss this with him in the office as he may benefit from surgical resection of the rectum.
[2022-04-03 08:25] VITALS: BP 99/57; PULSE 71; RESP 18; TEMP 36.4; O2SAT 100
[2022-04-03 08:40] VITALS: BP 123/73; PULSE 73; RESP 18; TEMP 36.4; O2SAT 99
== END 2022-04-03 09:24 | disposition home or self-care (01) ==
PROVIDERS: Nurse Practitioner; PCP Internal Medicine; Visit Provider Surgery
PROC: 0DJD8ZZ Inspection of Lower Intestinal Tract, Via Natural or Artificial Opening Endoscopic (ICD-10-PCS; CPT 45330; principal; 2022-04-03 08:30)
DX: C20 Malignant neoplasm of rectum (principal); Z92.21 Personal history of antineoplastic chemotherapy; Z92.3 Personal history of irradiation; R42 Dizziness and giddiness; I10 Essential (primary) hypertension; G62.9 Polyneuropathy, unspecified; F10.20 Alcohol dependence, uncomplicated; Z86.69 Personal history of other diseases of the nervous system and sense organs; Z79.899 Other long term (current) drug therapy; Z88.8 Allergy status to other drugs, medicaments and biological substances; Z87.891 Personal history of nicotine dependence
CPT/HCPCS: 45330; 36415; 85027

== ENCOUNTER 2022-04-22 17:44 | Emergency (ER) | payer MEDICAID, SELFPAY ==
--- NOTE | ~2022-04-22 | CT_ITS ---
EXAMINATION: CT HEAD WITHOUT CONTRAST CLINICAL INFORMATION: Colorectal cancer. Multiple falls. COMPARISON: None TECHNIQUE: Imaging was performed from the skull base to vertex without intravenous administration of contrast. This CT examination was performed using dose optimization techniques as appropriate, variously including the following: *Automated exposure control *Adjustment of mA and/or kV according to patient size (this includes techniques or standardized protocols for targeted exams where dose is matched to indication/reason for exam; i.e. extremities or head) *Use of iterative reconstruction technique Total exam dose length product: 719 mGy-cm FINDINGS: No intra or extra-axial fluid collection, hemorrhage, or mass. No ventriculomegaly. No midline shift or herniation. Basal cisterns are patent. Richard-white matter differentiation is maintained. No territorial encephalomalacia. Small focus of hypoattenuation compatible with remote lacunar infarct in the left caudate head. Proportional prominence of the ventricles and sulcal spaces is consistent with moderate volume loss. Minimal periventricular white matter hypoattenuation, nonspecific. No calvarial fracture or soft tissue abnormality. The mastoid air cells and visualized portions of the paranasal sinuses are well aerated. CT/CT head/brain wo con IMPRESSION: 1. No intracranial hemorrhage, mass, or other acute intracranial abnormality. 2. Cerebral atrophy and remote lacunar infarct in the left caudate head.
--- NOTE | ~2022-04-22 | XR_ITS ---
EXAMINATION: XR FOOT, LEFT CLINICAL INFORMATION: Pain status post fall COMPARISON: None TECHNIQUE: AP, lateral, and oblique views of the left foot. FINDINGS: No acute fracture or dislocation. Mild deformity of the fourth proximal phalanx compatible with remote healed fracture. Minimal joint space narrowing and tiny osteophytes at the first MTP joint compatible with mild degenerative change. Bipartite tibial hallux sesamoids noted. Lisfranc alignment is maintained. Mild soft tissue swelling overlying the dorsal foot/ankle. Mild vascular calcifications. XR/XR foot LT min 3V IMPRESSION: No acute fracture or dislocation identified.
--- NOTE | ~2022-04-22 | XR_ITS ---
EXAMINATION: XR FOOT, RIGHT CLINICAL INFORMATION: Rule out metatarsal fracture. COMPARISON: None TECHNIQUE: AP, lateral, and oblique views of the right foot. FINDINGS: Extensive degenerative changes at the first MTP joint with prominent osteophyte formation joint space loss and heterotopic adjacent ossification. I do not appreciate any obvious bony destructive lesions or erosions. No periosteal reaction. No acute fracture or dislocation. Incidental small calcaneal heel spur at the attachment point of the plantar aponeurosis. XR/XR foot RT 2V IMPRESSION: Marked degenerative changes at the first MTP joint but no acute bony abnormality.
[2022-04-22 18:12] VITALS: BP 142/89; PULSE 77; RESP 18; TEMP 36.9; O2SAT 98; BMI 23.6
[2022-04-22 19:00] LABS: MANUAL DIFF FLAG NO
[2022-04-22 19:05] LABS: Eosinophils Absolute Auto 0.1 X10*3/uL (0.0-0.4); Hematocrit 35.2 % (42.0-52.0); Hemoglobin 11.6 g/dl (14.0-18.0); Imm Gran Abs Auto 0.01 X10*3/uL (0.00-0.03); Imm Gran Pct Auto 0.4 % (0.0-0.4); Lymphocytes Absolute Auto 0.7 X10*3/uL (1.2-4.9); Lymphocytes Percent Auto 26.6 % (20-40); Mean Corpuscular Hemoglobin 33.1 pg (27.0-33.0); Mean Corpuscular Volume 100.6 fL (80.0-98.0); Mean Platelet Volume 9.5 fL (9.4-12.4); Monocytes Absolute Auto 0.3 X10*3/uL (0.1-1.2); Monocytes Percent Auto 11.7 % (2-11); Neutrophils Absolute Auto 1.5 x10*3/uL (2.0-8.3); Neutrophils Percent Auto 59.3 % (45-73); Red Cell Distribution Width 13.1 % (11.0-16.0); SCAN SMEAR FLAG 1
[2022-04-22 19:07] LABS: Platelet Count 50 X10*3/uL (160-400); White Blood Count 2.5 X10*3/uL (4.8-10.8)
[2022-04-22 19:22] LABS: Alanine Aminotransferase 28 U/L (0-40); Albumin Level 4.2 g/dL (3.5-5.0); Alkaline Phosphatase 111 U/L (39-117); Anion Gap 13 (12-20); Aspartate Amino Transferase 30 U/L (5-37); Bilirubin Total 1.3 mg/dL (0.0-1.0); Blood Urea Nitrogen 17 mg/dL (9-16); Calcium 9.3 mg/dL (8.4-10.2); Carbon Dioxide 25 mmol/L (22-29); Chloride 106 mmol/L (96-108); Creatinine Clr Calc Pharmacy 92.5; Estimated Glomerular Filt Rate > 60; Glucose Random 80 mg/dL (60-115); Potassium 4.6 mmol/L (3.3-5.1); Sodium 139 mmol/L (135-145); Total Protein 6.9 g/dL (6.5-8.0)
--- NOTE | 2022-04-22 21:30 | ED.GENADULT ---
HPI - General Adult General Chief complaint: Dizziness Stated complaint: dizziness,fallen x2 Time Seen by Provider: 04/22/22 21:01 Source: patient and EMS Mode of arrival: EMS Limitations: no limitations History of Present Illness HPI narrative: Patient comes to emergency room complaining of multiple falls. Patient states that for about 2 weeks, he has fallen approximately 4 times. Patient states that he feels lightheaded, weak, no chest pain or shortness of breath prior to feeling lightheaded. Patient states that he has never passed out. Patient is usually able to get himself to a wall and healing or lower himself to the ground. At times, patient falls from standing. However, he remains conscious, does not hit his head. Patient finished approximately 2-3 weeks ago his 3rd round of chemotherapy. Patient is being treated for colorectal cancer, sees Dr. Chahal. Patient denies any fever chills, no vomiting or diarrhea, no recent illnesses. Today, patient was walking trying to get to the grocery store. Patient started feeling weak and lightheaded, he had to return to his house, called EMS. Patient states that over the course of the last days, he thinks that he might have injured his left foot. Patient has significant neuropathy in both feet and is unable to feel them. Patient called his primary care physician and Dr. Chahal office, patient was instructed to come to the emergency room. Related Data Home Medications Medication Instructions Recorded Confirmed atenolol 50 mg tablet 25 mg PO DAILY 10/18/20 03/18/22 valsartan 80 mg tablet 1 tab PO DAILY 10/18/20 03/18/22 Vitamin D3 125 mcg PO DAILY 01/31/21 03/18/22 citalopram 20 mg tablet (Celexa) 20 mg PO DAILY 08/19/21 03/18/22 zinc acetate 25 mg (zinc) capsule 25 mg PO DAILY 12/15/21 03/18/22 Previous Rx's Medication Instructions Recorded ondansetron HCl 4 mg tablet 8 mg PO Q8H PRN Nausea And 08/20/21 (Zofran) Vomiting #60 tabs loratadine 10 mg tablet (Claritin) 10 mg PO DAILY #30 tabs 12/24/21 Allergies Allergy/AdvReac Type Severity Reaction Status Date / Time capsaicin [From Capzasin] Allergy Mild Itchy Eyes Verified 04/22/22 18:17 cephalexin [From Keflex] Allergy Gastrointestinal Verified 04/22/22 18:17 Upset lisinopril AdvReac Cough Verified 04/22/22 18:17 Review of Systems Review of Systems: Constitutional : No Weight loss, No Fever, No Chills, No Night Sweats, No Fatigue, No Malaise ENT/Mouth : No Hearing loss, No Ear Pain, No Nasal Congestion, No Sinus Pain, No Hoarseness, No sore throat, No Rhinorrhea, No Swallowing Difficulty Eyes: No Eye Pain, No Swelling, No Redness, No Foreign Body, No Discharge, No Vision Changes Cardiovascular : No Chest Pain, No SOB, No Dyspnea on Exertion, No Orthopnea, No Edema, No Palpitations Respiratory : No Cough, No Sputum, No Wheezing, No Smoke Exposure, No Dyspnea Gastrointestinal : No Nausea, No Vomiting, No Diarrhea, No Constipation, No abdominal Pain, No Hematochezia, No Melena Genitourinary : no irregular bleeding, No Dysuria, No Urinary Frequency, No Hematuria, No Urinary Incontinence, No Urgency, No Flank Pain, No Urinary Flow Changes, No Hesitancy Musculoskeletal : No joint pain, No Myalgias, No Joint Swelling Skin : No Skin Lesions, No rash Neuro : Complaining of weakness, chronic paresthesias in lower extremities, falls without head strikes, no headache Psych : No Anxiety/Panic, patient has history of major depression, no active SI or HI Heme/Lymph: No Bruising, No Bleeding,No Lymphadenopathy Endocrine : No Polyuria, No Polydipsia, No Temperature Intolerance [facility] Past Medical History Medical History Alcohol dependence Anxiety Dizziness History of perforated ear drum HTN (hypertension) Neuropathy Rectal carcinoma Surgical History History of tympanoplasty of right ear Hx of colonoscopy Family History Family History Sister Neuropathy Breast cancer Family/Other Colorectal cancer Brother Pancreatic cancer Mother Angina at rest Neuropathy Open angle primary glaucoma Social History Social History Household Members: Spouse Housing: House Are you a primary student career development specialist to a significant other at home: No Do you presently have visiting nurse or other home services: No Alcohol intake: former Patient Tobacco Use Status: Former Tobacco user Tobacco use type: Cigar Use of substances other than those prescribed or required for medical reasons: No Substance Use Type: Marijuana Substance Use Frequency: Occasionally Substance Use Frequency Other:: smokes marijuana occ - helps with chemo symptoms Advance Directives: No Advance Directives Information Provided: Yes service: Yes Current occupational status: employed Physical Exam ED Vital Signs: Vital Signs - 24 hr 04/22/22 18:12 04/22/22 22:16 04/22/22 22:18 Temperature 98.5 F Pulse Rate 77 65 66 Respiratory Rate 18 Blood Pressure 142/89 H 127/79 129/89 Pulse Oximetry 98 Oxygen Delivery Method Room Air 04/22/22 22:20 04/22/22 22:00 Temperature Pulse Rate 75 67 Respiratory Rate 16 Blood Pressure 150/87 H 137/87 Pulse Oximetry 98 Oxygen Delivery Method Room Air BMI result Body Mass Index 23.6 Const Other: Appearance: Alert. Oriented X3. No acute distress. Eyes: Pupils equal, round and reactive to light. ENT: Pharynx normal. Neck: Normal inspection. Neck supple. No lymph nodes noted. No crepitus CVS: Normal heart rate and rhythm. Pulses normal. Normal S1 and S2 Respiratory: No respiratory distress. Breath sounds normal. No Wheezing. No rales Abdomen: Soft and nontender. No rigidity. No distention. Skin: Skin warm and dry. Normal skin color. Normal skin turgor. Extremities: No lower extremity edema, both feet look within normal limits, no injuries visualized, intact skin. Unable to feel lower extremities from toes to the ankles bilaterally Neuro: Oriented X 3. No motor deficit. No sensory deficit. Moving all extremities. No slurred speech. CN 2 through 12 grossly intact Psych: calm, cooperative, normal affect, coherent Course Course Course Narrative: Imaging and labs pending. CT scan shows old lacunar infarcts, discussed with patient. Patient states he was not aware of this. No acute pathology. Urinalysis pending. ANC count 1475, mild neutropenia, Neupogen Is not indicated at this time I discussed the labs with the patient, urinalysis pending. Patient keeps falling, not safe to be home. Patient states that physical therapy is not an option due to his current living situation, patient was not specific, but it seems that patient and his partner are hoarders. Patient is willing to go to short-term Care if indicated. Case management and PT pending Physician observation started at 23:15 Medical Decision Making Lab Data Result diagrams: 04/22/22 18:50 04/22/22 18:50 Labs: Lab Results 04/22/22 04/22/22 04/22/22 Range/Units 18:50 18:50 18:50 WBC 2.5 L (4.8-10.8) X10*3/uL RBC 3.50 L (4.60-5.80) X10*6/uL Hgb 11.6 L (14.0-18.0) g/dl Hct 35.2 L (42.0-52.0) % MCV 100.6 H (80.0-98.0) fL MCH 33.1 H (27.0-33.0) pg MCHC 33.0 (31.0-36.0) g/dl RDW 13.1 (11.0-16.0) % Plt Count 50 L D (160-400) X10*3/uL MPV 9.5 (9.4-12.4) fL Immature Gran % (Auto) 0.4 (0.0-0.4) % Neut % (Auto) 59.3 (45-73) % Lymph % (Auto) 26.6 (20-40) % Vermilion % (Auto) 11.7 H (2-11) % Eos % (Auto) 2.0 (0-4) % Baso % (Auto) 0.0 (0-2) % Lymph # (Auto) 0.7 L (1.2-4.9) X10*3/uL Vermilion # (Auto) 0.3 (0.1-1.2) X10*3/uL Eos # (Auto) 0.1 (0.0-0.4) X10*3/uL Baso # (Auto) 0.0 (0.0-0.2) X10*3/uL Abs Immat Gran (auto) 0.01 (0.00-0.03) X10*3/uL Absolute Neuts (auto) 1.5 L (2.0-8.3) x10*3/uL Absolute Nucleated RBC 0.000 (0.0-0.012) X10*3/uL Nucleated RBC % (auto) 0.0 (0.0-0.2) /100WBC PT (9.9-13.0) SEC INR (0.9-1.1) Sodium 139 (135-145) mmol/L Potassium 4.6 (3.3-5.1) mmol/L Chloride 106 (96-108) mmol/L Carbon Dioxide 25 (22-29) mmol/L Anion Gap 13 (12-20) BUN 17 H D (9-16) mg/dL Creatinine 0.78 (0.5-1.4) mg/dL Estim Creat Clear Calc 92.5 Estimated GFR > 60 Random Glucose 80 (60-115) mg/dL Calcium 9.3 (8.4-10.2) mg/dL Magnesium (1.6-2.6) mg/dL Total Bilirubin 1.3 H (0.0-1.0) mg/dL AST 30 (5-37) U/L ALT 28 (0-40) U/L Alkaline Phosphatase 111 D (39-117) U/L Troponin I High Sens < 3.5 (<3.5-35.0) ng/L Total Protein 6.9 (6.5-8.0) g/dL Albumin 4.2 (3.5-5.0) g/dL Ethyl Alcohol mg/dL COVID-19 (RODRIGO) (Negative) COVID-19 Clin Com 04/22/22 04/22/22 04/22/22 Range/Units 22:27 22:28 22:28 WBC (4.8-10.8) X10*3/uL RBC (4.60-5.80) X10*6/uL Hgb (14.0-18.0) g/dl Hct (42.0-52.0) % MCV (80.0-98.0) fL MCH (27.0-33.0) pg MCHC (31.0-36.0) g/dl RDW (11.0-16.0) % Plt Count (160-400) X10*3/uL MPV (9.4-12.4) fL Immature Gran % (Auto) (0.0-0.4) % Neut % (Auto) (45-73) % Lymph % (Auto) (20-40) % Vermilion % (Auto) (2-11) % Eos % (Auto) (0-4) % Baso % (Auto) (0-2) % Lymph # (Auto) (1.2-4.9) X10*3/uL Vermilion # (Auto) (0.1-1.2) X10*3/uL Eos # (Auto) (0.0-0.4) X10*3/uL Baso # (Auto) (0.0-0.2) X10*3/uL Abs Immat Gran (auto) (0.00-0.03) X10*3/uL Absolute Neuts (auto) (2.0-8.3) x10*3/uL Absolute Nucleated RBC (0.0-0.012) X10*3/uL Nucleated RBC % (auto) (0.0-0.2) /100WBC PT 11.7 (9.9-13.0) SEC INR 1.0 (0.9-1.1) Sodium (135-145) mmol/L Potassium (3.3-5.1) mmol/L Chloride (96-108) mmol/L Carbon Dioxide (22-29) mmol/L Anion Gap (12-20) BUN (9-16) mg/dL Creatinine (0.5-1.4) mg/dL Estim Creat Clear Calc Estimated GFR Random Glucose (60-115) mg/dL Calcium (8.4-10.2) mg/dL Magnesium 2.2 (1.6-2.6) mg/dL Total Bilirubin (0.0-1.0) mg/dL AST (5-37) U/L ALT (0-40) U/L Alkaline Phosphatase (39-117) U/L Troponin I High Sens (<3.5-35.0) ng/L Total Protein (6.5-8.0) g/dL Albumin (3.5-5.0) g/dL Ethyl Alcohol mg/dL COVID-19 (RODRIGO) Negative (Negative) COVID-19 Clin Com See Note 04/22/22 Range/Units 22:28 WBC (4.8-10.8) X10*3/uL RBC (4.60-5.80) X10*6/uL Hgb (14.0-18.0) g/dl Hct (42.0-52.0) % MCV (80.0-98.0) fL MCH (27.0-33.0) pg MCHC (31.0-36.0) g/dl RDW (11.0-16.0) % Plt Count (160-400) X10*3/uL MPV (9.4-12.4) fL Immature Gran % (Auto) (0.0-0.4) % Neut % (Auto) (45-73) % Lymph % (Auto) (20-40) % Vermilion % (Auto) (2-11) % Eos % (Auto) (0-4) % Baso % (Auto) (0-2) % Lymph # (Auto) (1.2-4.9) X10*3/uL Vermilion # (Auto) (0.1-1.2) X10*3/uL Eos # (Auto) (0.0-0.4) X10*3/uL Baso # (Auto) (0.0-0.2) X10*3/uL Abs Immat Gran (auto) (0.00-0.03) X10*3/uL Absolute Neuts (auto) (2.0-8.3) x10*3/uL Absolute Nucleated RBC (0.0-0.012) X10*3/uL Nucleated RBC % (auto) (0.0-0.2) /100WBC PT (9.9-13.0) SEC INR (0.9-1.1) Sodium (135-145) mmol/L Potassium (3.3-5.1) mmol/L Chloride (96-108) mmol/L Carbon Dioxide (22-29) mmol/L Anion Gap (12-20) BUN (9-16) mg/dL Creatinine (0.5-1.4) mg/dL Estim Creat Clear Calc Estimated GFR Random Glucose (60-115) mg/dL Calcium (8.4-10.2) mg/dL Magnesium (1.6-2.6) mg/dL Total Bilirubin (0.0-1.0) mg/dL AST (5-37) U/L ALT (0-40) U/L Alkaline Phosphatase (39-117) U/L Troponin I High Sens (<3.5-35.0) ng/L Total Protein (6.5-8.0) g/dL Albumin (3.5-5.0) g/dL Ethyl Alcohol < 10 mg/dL COVID-19 (RODRIGO) (Negative) COVID-19 Clin Com Imaging Data CT scan - head: Radiologist's impression: FINDINGS: No intra or extra-axial fluid collection, hemorrhage, or mass. No ventriculomegaly. No midline shift or herniation. Basal cisterns are patent. Richard-white matter differentiation is maintained. No territorial encephalomalacia. Small focus of hypoattenuation compatible with remote lacunar infarct in the left caudate head. Proportional prominence of the ventricles and sulcal spaces is consistent with moderate volume loss. Minimal periventricular white matter hypoattenuation, nonspecific. No calvarial fracture or soft tissue abnormality.? The mastoid air cells and visualized portions of the paranasal sinuses are well aerated. CT/CT head/brain wo con IMPRESSION: ? 1. No intracranial hemorrhage, mass, or other acute intracranial abnormality. 2. Cerebral atrophy and remote lacunar infarct in the left caudate head. Discharge Plan Discharge Clinical Impression: Multiple falls Patient Disposition: Still a Patient Prescriptions: No Action valsartan 80 mg tablet 1 tab PO DAILY Rx Instructions: Per patient, takes as needed when he feels BP is elevated. took 1/2 tablet 10/16 and full tablet 10/17 atenolol 50 mg tablet 25 mg PO DAILY Rx Instructions: Per patient, takes as needed when he feels BP is elevated. took 1/2 tablet (25mg) 10/16 Vitamin D3 125 mcg PO DAILY citalopram [Celexa] 20 mg Tablet 20 mg PO DAILY ondansetron HCl [Zofran] 4 mg Tablet 8 mg PO Q8H PRN (Reason: Nausea And Vomiting) Qty: 60 3RF loratadine [Claritin] 10 mg Tablet 10 mg PO DAILY Qty: 30 3RF zinc acetate 25 mg (zinc) capsule 25 mg PO DAILY
--- NOTE | 2022-04-22 21:31 | ECG_ITS ---
Test Reason : DIZZY Blood Pressure : / mmHG Vent. Rate : 066 BPM Atrial Rate : 066 BPM P-R Int : 124 ms QRS Dur : 090 ms QT Int : 404 ms P-R-T Axes : 027 -17 016 degrees QTc Int : 423 ms Normal sinus rhythm Normal ECG When compared with ECG of 18-OCT-2020 09:12, Vent. rate has decreased BY 34 BPM Incomplete right bundle branch block is no longer Present Referred By: Jen Rosenthal Electronically Signed By:Gigi Mcintosh
[2022-04-22 22:00] VITALS: BP 137/87; PULSE 67; RESP 16; O2SAT 98
[2022-04-22 22:16] VITALS: BP 127/79; PULSE 65
[2022-04-22 22:18] VITALS: BP 129/89; PULSE 66
[2022-04-22 22:20] VITALS: BP 150/87; PULSE 75
[2022-04-22 22:33] LABS: Troponin-I High Sensitivity < 3.5 ng/L (<3.5-35.0)
[2022-04-22 22:45] LABS: Prothrombin Time 11.7 SEC (9.9-13.0)
[2022-04-22 22:55] LABS: COVID-19 Test Negative (Negative)
[2022-04-22 22:58] LABS: Ethanol < 10 mg/dL
[2022-04-22 23:01] LABS: Magnesium 2.2 mg/dL (1.6-2.6)
[2022-04-23 00:07] VITALS: RESP 16; O2SAT 98
[2022-04-23 06:36] VITALS: BP 152/84; PULSE 70; RESP 18; O2SAT 98
[2022-04-23 06:42] LABS: Appearance Urine CLEAR; Color Urine YELLOW; Glucose Urine UA NEG (NEG); Leukocyte Esterase Urine 1+ (NEG); Nitrite Urine NEG (NEG); PH 5.5 (5.0-8.0); Specific Gravity - Urine 1.015 (1.005-1.025); UACC Culture Trigger YES; Urine Blood NEG (NEG); Urine Ketones NEG (NEG); Urine Protein NEG (NEG-TRACE)
[2022-04-23 06:47] LABS: Bacteria Urine TRACE /LPF; Hyaline Casts Urine 0-2 /LPF; RBC Urine 0-2 /HPF (0); Squamous Epithelial Cell Urine TRACE /LPF
--- NOTE | 2022-04-23 08:12 | PC.NURSE ---
REPORT RECEIVED FROM PAMELA MONTERO. PT AWAKE, ALERT AND ORIENTED X 3. SKIN WARM AND DRY. RESP UNLABORED PHYSICAL THERAPY CURRENTLY WORKING WITH PATIENT.
--- NOTE | 2022-04-23 09:07 | MHC.CM.PN ---
PATIENT TELLS THIS PROSTHETIC ASSISTANT THAT HE DOES NOT YET WANT TO DC TO SNF HE ALSO ASKS FOR NO VNA IN THE HOME. PATIENT STATES THAT HE PREFERS TO DO OUTPATIENT REHAB AT [facility]. HE IS AWARE THAT THIS PROCESS NEEDS OT BE COMPLETED WITH HIS PCP, WHICH PATIENT STATES HEW IS CONFIDENT THAT THIS WILL HAPPEN. RN TO BE MADE AWARE.
--- NOTE | 2022-04-23 10:33 | PHA.MEDREC ---
Pharmacy Consult ? Medication Reconciliation Pharmacy has completed the medication reconciliation. Patient confirmed all medications. Patient get Celexa from [place]. Inez AtkinsonD
--- NOTE | 2022-04-23 11:30 | PC.NURSE ---
Diet order requested by provider.
[2022-04-23 11:42] VITALS: BP 138/94; PULSE 75; RESP 16; TEMP 36.8; O2SAT 100
--- NOTE | 2022-04-23 11:43 | PC.NURSE ---
Pt resting comfortably, denies dizziness/pain. VS WNL.
--- NOTE | 2022-04-23 15:34 | MHC.CM.PN ---
PATIENT TO DC HOME VIA [facility] FOR 1700. RN AND PATIENT AWARE OF PLAN.
--- NOTE | 2022-04-23 15:43 | PC.NURSE ---
PT ARRANGING FOR TRANSPORT AFTER REFUSING TRANSPORT OFFERED BY [facility]
--- NOTE | 2022-04-23 17:00 | PM.HEMONCCN ---
Subjective - Subjective Chief complaint: Consult for: Residual rectal carcinoma. Patient: new to practice Consult date: 04/23/22 Requesting Physician: Jen Rosenthal. Primary Care Provider: Mason Douglas MD Medical Summary: DIAGNOSIS: RECTAL CARCINOMA. HPI - Consult Narrative Reason for consult: Consult for: Rectal carcinoma. Narrative: Velasquez Cam JR is a pleasant 62 year old gentleman, who presented to the emergency room after multiple falls. For a couple of weeks he has fallen 4 times. It starts with him feeling dizzy and weak. He does not pass out. He is mostly able to get himself, or lower himself to the ground. He denies any accompanying chest pain or shortness of breath. Denies recent fever chills or night sweats. Abdominal pain nausea vomiting no diarrhea. No gross blood in the stools. He does have symptoms of neuropathy. He was noted to be mildly leukopenic. He had imaging done here. CT scan of the brain showed old lacunar infarcts. No acute pathology. He was advised to go to the rehab however after discussion he elected to go home. He promised to return for outpatient PT. He was recently examined by Dr. Vincent. He underwent a flexible sigmoidoscopy on 04/03. This revealed: At proximal rectal shelf, there was a slightly elevated 1.7 cm lesion, appeared to represent residual tumor. This is significantly smaller than prior to treatment. Photographs were taken. Dr. Vincent for him to [place] for consideration of surgery. However the patient elected to think about it. Review of Systems - Constitutional Reports system reviewed and no additional complaints, except as documented, Reports weakness, Denies weight loss Comments: Presented status post multiple falls. - Eyes Reports system reviewed and no additional complaints, except as documented - ENT Reports system reviewed and no additional complaints, except as documented - Cardiovascular Reports system reviewed and no additional complaints, except as documented - Respiratory Reports no additional respiratory complaints - Gastrointestinal Reports system reviewed and no additional complaints, except as documented - Genitourinary Genitourinary: Reports no additional male genitourinary complaints - Musculoskeletal Reports system reviewed and no additional complaints, except as documented - Integumentary/Breasts Skin/Breast: Reports no additional skin complaints - Neurologic Reports system reviewed and no additional complaints, except as documented - Psychiatric Reports system reviewed and no additional complaints, except as documented - Endocrine Reports no additional endocrine complaints - Hematologic/Lymphatic Reports system reviewed and no additional complaints, except as documented - Allergic/Immunologic Reports system reviewed and no additional complaints, except as documented Oncology Screenings - ECOG Performance Status ECOG Performance Status: 1 [facility] Medical History: Medical History (Last Reviewed 04/22/22 @ 21:36 by Jen Rosenthal MD) Alcohol dependence Anxiety Dizziness History of perforated ear drum HTN (hypertension) Neuropathy Rectal carcinoma Functional capacity: uses cane/walker Patient : No Family History: Family History (Last Reviewed 03/18/22 @ 14:47 by Chau Vincent MD) Sister Neuropathy Breast cancer Family/Other Colorectal cancer Brother Pancreatic cancer Mother Angina at rest Neuropathy Open angle primary glaucoma Surgical History: Surgical History (Last Reviewed 04/22/22 @ 21:36 by Jen Rosnethal MD) History of tympanoplasty of right ear Hx of colonoscopy Social History: Social History (Last Reviewed 03/18/22 @ 14:47 by Chau Vincent MD) Living Situation History: Household Members: Spouse Housing: House Are you a primary home health care provider to a significant other at home: No Do you presently have visiting nurse or other home services: No Tobacco History: Patient Tobacco Use Status: Former Tobacco user Tobacco use type: Cigar Substance Use History: Use of substances other than those prescribed or required for medical reasons: No Substance Use Type: Marijuana Substance Use Frequency: Occasionally Substance Use Frequency Other:: smokes marijuana occ - helps with chemo symptoms Advance Directives: Advance Directives: No Advance Directives Information Provided: Yes Nutrition Assessment: Patient : No Occupation Assessmet: service: Yes Current occupational status: employed Home Medications and Allergies Home Medications Medication Instructions Recorded Confirmed Type valsartan 80 mg tablet 1 tab PO DAILY 10/18/20 04/23/22 History citalopram 20 mg tablet (Celexa) 20 mg PO DAILY 08/19/21 04/23/22 History aspirin 81 mg chewable tablet 81 mg PO DAILY PRN Headache 04/23/22 04/23/22 History atenolol 25 mg tablet 25 mg PO DAILY 04/23/22 04/23/22 History cholecalciferol (vitamin D3) 25 25 mcg PO DAILY 04/23/22 04/23/22 History mcg (1,000 unit) tablet multivitamin 1 tab PO DAILY 04/23/22 04/23/22 History zinc 25 mg tablet 25 mg PO DAILY 04/23/22 04/23/22 History Allergies Allergy/AdvReac Type Severity Reaction Status Date / Time capsaicin [From Capzasin] Allergy Mild Itchy Eyes Verified 04/22/22 18:17 cephalexin [From Keflex] Allergy Gastrointestinal Verified 04/22/22 18:17 Upset lisinopril AdvReac Cough Verified 04/22/22 18:17 Physical Exam Vital signs: Vital Signs Temp 98.3 F 04/23/22 11:42 Pulse 75 04/23/22 11:42 Resp 16 04/23/22 11:42 BP 138/94 H 04/23/22 11:42 Pulse Ox 100 04/23/22 11:42 O2 Del Method 04/23/22 11:42 Intake & Output 04/22/22 04/23/22 04/23/22 18:59 06:59 18:59 Other: Weight 70.307 kg Weight 70.307 kg - Constitutional Present: mild distress - Routine HEENT Exam Head: Present: normal inspection - Routine Neck Exam Present: supple - Routine Respiratory Exam Present: CTAB - Routine Cardiovascular Exam Cardiovascular: Present: RRR, S1, S2 - Routine Abdominal Exam Present: normal bowel sounds, nontender. Absent: organomegaly - Routine Extremities Exam Present: nontender - Routine Skin Exam Present: intact - Routine Neurological Exam Present: alert, oriented X3, normal speech - Detailed Neurological Exam: Coma Scale Eye Opening: Spontaneous (4) Verbal Response: Oriented (5) - Routine Psychiatric Exam Present: anxious Hem/Onc Consult Result - Labs CBC & Chem 7: 04/22/22 18:50 04/22/22 18:50 Labs: Short CBC 04/22/22 Range/Units 18:50 WBC 2.5 L (4.8-10.8) X10*3/uL Hgb 11.6 L (14.0-18.0) g/dl Hct 35.2 L (42.0-52.0) % Plt Count 50 L D (160-400) X10*3/uL BMP 04/22/22 18:50 Sodium 139 Potassium 4.6 Chloride 106 Carbon Dioxide 25 BUN 17 H D Creatinine 0.78 Calcium 9.3 Liver Function 04/22/22 Range/Units 18:50 Total Bilirubin 1.3 H (0.0-1.0) mg/dL AST 30 (5-37) U/L ALT 28 (0-40) U/L Alkaline Phosphatase 111 D (39-117) U/L Albumin 4.2 (3.5-5.0) g/dL Urine 04/23/22 Range/Units 06:36 Urine Color YELLOW Urine Appearance CLEAR Urine pH 5.5 (5.0-8.0) Ur Specific [place] 1.015 (1.005-1.025) Urine Protein NEG (NEG-TRACE) MG/DL Urine Glucose (UA) NEG (NEG) MG/DL Assessment and Plan Patient Active problem list reviewed?: Yes (1) Rectal carcinoma Status: Acute Assessment and plan: This is a pleasant 61 year old gentleman, who presented with abdominal pain and rectal bleeding. His sister and a maternal cousin had rectal cancer. He was noted to have a rectal mass, most consistent with rectal cancer. Biopies have been taken. CEA level 1.7. He needed further staging work up, prior to deciding definitive treatment. I tried to scheduled a PET scan, however the insurance declined it. MRI of the pelvis revealed: 1. No visible tumor in rectal wall. No transrectal extension. Perirectal soft tissues unremarkable. 2. No perirectal or pelvic adenopathy. 3. Prior TURP defect prostate. Mild bladder wall thickening. 4. Non-specific high T2 signal presacral soft tissues with normal vasculature extending through area without displacement. Finding of doubtful significance. Bone marrow signal normal. Endoscopic ultrasound would help determine extent of tumor, locally. My initial plan was to proceed with neoadjuvant chemotherapy (FOLFOX) to begin with. I scheduled him for a Port-A-Cath to facilitate the chemo. However the patient refused to have the Port-A-Cath placed. He has a home situation where he is in the process of being evicted. He did not want to be getting chemotherapy while, homeless. He was agreeable to getting radiation. He has completed radiation therapy under the care of Dr. Yuan. The plan was to proceed with combined modality RT plus chemotherapy. ( Capecitabine). He completed treatment the of January. He still has some residual side effects. He has tolerated treatment reasonably well. His white count had dropped so that is being monitored carefully. Couple of weeks ago his WBC was 2.7, so improved. The plan is to re-image him. I tried to proceed with a PET scan for further evaluation. However that was denied. CT scan of the abdomen pelvis, from 05/01/2021 revealed: No rectal mass is seen. Constipation. Stable small liver lesions probably representing cysts. Question mild diffuse bladder wall thickening. Post TURP defect. He had a flexible sigmoidoscopy done back in April which showed improvement however there was still residual rectal carcinoma present. CEA level 1.80, on 09/25/21. PT 10.6. INR 0.9. He agreed to receiving systemic chemotherapy treatments. He had a Port-A-Cath placed on 08/21/21. I touched based with GI as well as Dr. Vincent. He was seen by [facility] on 04/28. His impression was that he may be able to do an APR here but would prefer to refer him to [place] to achieve negative margins with a very low anterior resection. He may require a diverting loop ileostomy at that time. Then consideration will be given to surgery, based upon his response to the above treatment. Velasquez is willing to arrange for transportation. Dr. Vincent, will help setting up an appointment. He actually set up a couple of appointments however the patient was not able to go. He was started on chemotherapy on 09/01/2021. He is here for cycle 7 day 15. l arranged for pelvic MRI at [facility], for restaging purposes. This was done in February and revealed: No evidence of rectal or anal mass seen. T stage: T 0: No evidence of primary tumor. End-stage: No regional lymph nodes. Extramural venous invasion: None. emainder of the visualized bowel loops are unremarkable. Bones: No acute fracture or dislocation. Patchy homogeneous T2 signal noted in the visualized osseous structures. Which may be evidence of red marrow recruitment in view of the current chemotherapy. Pelvic organs: Prostate gland is not enlarged. Seminal vesicles unremarkable. Ascites: Small volume of presacral edema is noted, decreased since previous exam. Recent MRI was negative. He underwent a flexible sigmoidoscopy, on 04/03: This revealed 1.7 cm residual tumor. PLAN: I touched base with Dr. Vincent. He offered to refer the patient out for surgery. Velasquez is thinking about it. He will let us know about his decision. I discussed with him the option going to [facility] instead of having the surgery in [place] since it appears that it is not feasible for him to travel there for her repeated appointments. If he can make transportation arrangements, he will be referred to Dr. Rome at [facility] for surgery. (he has already missed a couple of appointments with him.) He will return next week for labs and a follow-up visit to Oncology. Thanks, CC: Dr. Mason Douglas. Dr. Vincent. Dr. Danika Lunsford. - Time Spent With Patient Time Spent with Patient (in minutes): 30
== END 2022-04-23 16:13 | disposition home or self-care (01) ==
PROVIDERS: Emergency Provider Emergency Medicine; PCP Internal Medicine
DX: R29.6 Repeated falls (principal); G62.9 Polyneuropathy, unspecified; D70.9 Neutropenia, unspecified; C19 Malignant neoplasm of rectosigmoid junction; I10 Essential (primary) hypertension; Z91.81 History of falling; Z20.822 Contact with and (suspected) exposure to COVID-19
CPT/HCPCS: 36415; 70450; 73620; 73630; 80053; 81001; 82077; 83735; 84484; 85025; 85610; 87086; 87635; 93005; 97162; 99284

== ENCOUNTER → 2023-01-13 10:33 | Outpatient (BNVA) | payer MEDICARE, MEDICAID, SELFPAY | PROVIDERS: PCP Internal Medicine; Referring Provider Internal Medicine Medical Oncology; Visit Provider Surgery | DX: C20 Malignant neoplasm of rectum (principal); Z92.21 Personal history of antineoplastic chemotherapy; Z92.3 Personal history of irradiation | CPT/HCPCS: 99212 ==

== ENCOUNTER 2023-02-02 08:21 | Day surgery (SDC) | payer MEDICARE, MEDICAID, SELFPAY ==
[2023-01-28 10:50] VITALS: BMI 23.9
--- NOTE | 2023-02-01 10:02 | HO.ANESPROP2 ---
Documented by User: Raquel Kahn NP 02/01/23 10:05 HPI - Anesthesia Eval Consult details Narrative: 63yo M for Sigmoidoscopy Flexible rectal cancer with radiation and chemo last plt count low at 55. will repeat DOS +ETOH abuse s/p flex sig 03/2022 with MAC PMFSH Active Problems Active Problems: All Active Problems (Updated 01/28/23 @ 10:46 by Alva Stephenson RN) Rectal carcinoma (Acute) History of alcohol abuse (Acute) Past Medical History Medical History (Updated 01/28/23 @ 10:46 by Alva Stephenson RN) Alcohol dependence Anxiety Dizziness History of alcohol abuse History of chemotherapy History of perforated ear drum HTN (hypertension) Hx of flexible sigmoidoscopy Hx of radiation therapy Neuropathy Port-A-Cath in place Rectal carcinoma Family History Family History Sister Neuropathy Breast cancer Family/Other Colorectal cancer Brother Pancreatic cancer Mother Angina at rest Neuropathy Open angle primary glaucoma Family history of problems with anesthesia: No Surgical History Surgical History (Updated 01/28/23 @ 10:46 by Alva Stephenson RN) History of tympanoplasty of right ear Hx of colonoscopy History of Problems with Anesthesia: No Social History Social History Household Members: Spouse Housing: House Are you a primary acute care assistant to a significant other at home: No Do you presently have visiting nurse or other home services: No Alcohol intake: former Patient Tobacco Use Status: Former Tobacco user Tobacco use type: Cigar Substance Use Type: Marijuana Are you DNR?: No Advance Directives: No Advance Directives Information Provided: Yes Nutrition Risks: No Nutritional Risk service: Yes Current occupational status: other Meds Allergies Allergy/AdvReac Type Severity Reaction Status Date / Time capsaicin [From Capzasin] Allergy Mild Itchy Eyes Verified 01/13/23 10:45 cephalexin [From Keflex] Allergy Gastrointestinal Verified 01/13/23 10:45 Upset lisinopril AdvReac Cough Verified 01/13/23 10:45 Home Medications Medication Instructions Recorded Confirmed Last Taken Type valsartan 80 mg tablet 1 tab PO DAILY 10/18/20 12/18/22 04/21/22 History citalopram 20 mg tablet (Celexa) 20 mg PO DAILY 1012/18/22 02/02/23 History aspirin 81 mg chewable tablet 81 mg PO DAILY PRN Headache 04/23/22 12/18/22 01/30/23 History atenolol 25 mg tablet 25 mg PO DAILY 04/23/22 12/18/22 02/01/23 History cholecalciferol (vitamin D3) 25 25 mcg PO DAILY 04/23/22 12/18/22 04/21/22 History mcg (1,000 unit) tablet multivitamin 1 tab PO DAILY 04/23/22 12/18/22 04/21/22 History zinc 25 mg tablet 25 mg PO DAILY 04/23/22 12/18/22 04/21/22 History omega 5-qxm-cpg-fish oil 1,200 mg 1 cap PO DAILY 12/18/22 12/18/22 01/30/23 History (144 mg-216 mg) capsule (Fish Oil) Exam Exam Date and Time: February 01, 2023 1002 Height,Weight and Vital Signs: Height 5 ft 8 in Weight 71.441 kg Pertinent Lab Results Pertinent Lab Results: Laboratory Tests 12/18/22 12/18/22 09:31 09:31 WBC 2.9 L Hgb 13.5 L Hct 39.7 L Plt Count 109 L D Sodium 142 Potassium 4.5 Chloride 106 Carbon Dioxide 30 H BUN 14 Creatinine 0.83 Narrative Narrative: EKG 04/2022 Vent. Rate : 066 BPM ? ? Atrial Rate : 066 BPM ?? P-R Int : 124 ms? QRS Dur : 090 ms ? ? QT Int : 404 ms ? ? ? P-R-T Axes : 027 -17 016 degrees ?? QTc Int : 423 ms ? Normal sinus rhythm Normal ECG When compared with ECG of 18-OCT-2020 09:12, Vent. rate has decreased BY? 34 BPM Incomplete right bundle branch block is no longer Present Assessment and Plan Assessment Anesthesia Assessment: Chart Reviewed Final Anesthetic Review Family History of Problems with Anesthesia: No History of Problems with Anesthesia: No Documented by User: Will J Pulai, MD 02/02/23 09:12 [facility] Past Medical History Medical History (Updated 01/28/23 @ 10:46 by Alva Stephenson RN) Alcohol dependence Anxiety Dizziness History of alcohol abuse History of chemotherapy History of perforated ear drum HTN (hypertension) Hx of flexible sigmoidoscopy Hx of radiation therapy Neuropathy Port-A-Cath in place Rectal carcinoma Family History Family History Sister Neuropathy Breast cancer Family/Other Colorectal cancer Brother Pancreatic cancer Mother Angina at rest Neuropathy Open angle primary glaucoma Surgical History Surgical History (Updated 01/28/23 @ 10:46 by Alva Stephenson RN) History of tympanoplasty of right ear Hx of colonoscopy Social History Social History Household Members: Spouse Housing: House Are you a primary acute care assistant to a significant other at home: No Do you presently have visiting nurse or other home services: No Alcohol intake: former Patient Tobacco Use Status: Former Tobacco user Tobacco use type: Cigar Substance Use Type: Marijuana Are you DNR?: No Advance Directives: No Advance Directives Information Provided: Yes Nutrition Risks: No Nutritional Risk service: Yes Current occupational status: other Meds Allergies Allergy/AdvReac Type Severity Reaction Status Date / Time capsaicin [From Capzasin] Allergy Mild Itchy Eyes Verified 01/13/23 10:45 cephalexin [From Keflex] Allergy Gastrointestinal Verified 01/13/23 10:45 Upset lisinopril AdvReac Cough Verified 01/13/23 10:45 Home Medications Medication Instructions Recorded Confirmed Last Taken Type valsartan 80 mg tablet 1 tab PO DAILY 10/18/20 12/18/22 04/21/22 History citalopram 20 mg tablet (Celexa) 20 mg PO DAILY 08/19/21 12/18/22 02/02/23 History aspirin 81 mg chewable tablet 81 mg PO DAILY PRN Headache 04/23/22 12/18/22 01/30/23 History atenolol 25 mg tablet 25 mg PO DAILY 04/23/22 12/18/22 02/01/23 History cholecalciferol (vitamin D3) 25 25 mcg PO DAILY 04/23/22 12/18/22 04/21/22 History mcg (1,000 unit) tablet multivitamin 1 tab PO DAILY 04/23/22 12/18/22 04/21/22 History zinc 25 mg tablet 25 mg PO DAILY 04/23/22 12/18/22 04/21/22 History omega 8-qpv-unl-fish oil 1,200 mg 1 cap PO DAILY 12/18/22 12/18/22 01/30/23 History (144 mg-216 mg) capsule (Fish Oil) Exam Airway Mallampati Class: II TM Dist: >3cm Neck ROM: Full Heart: rrr Lungs: cta Assessment and Plan Assessment Anesthesia Assessment: Anesthesia Plan Discussed Final Anesthetic Review NPO: Yes ASA Class: IV Final Preanesthetic Review: No Changes in Pt Med Stat, Meds/Allgs Chart Reviewed and Anes Risks/Benef Reviewed Patient Risk: Intermediate Procedure Risk: Low Anesthetic Plan Anesthetic Plan: MAC: Disposition: Standard PACU
--- NOTE | 2023-02-02 08:03 | PC.NURSE ---
CALLED LEFT A MESSAGE PT A NO SHOW
[2023-02-02 08:26] VITALS: BP 136/82; PULSE 58; RESP 17; TEMP 36.3; O2SAT 98
[2023-02-02] MEDS: Lactated Ringers 1,000 ML 100 ML IVCONT (08:43)
--- NOTE | 2023-02-02 10:16 | MHC.SHP ---
Pre-Procedural Eval Section A Date of Service: 02/02/23 The patient is an INPATIENT: Yes Changes since office visit: Yes Cold of Flu in the past 2 weeks, Yes New Medical Problems, Yes Changes in Medication and Yes Patient answered all questions The History & Physical has been completed within 30 days and I have reviewed it.: Yes Section B Chief Complaint: Malignant neoplasm of rectum Allergies: Allergies Allergy/AdvReac Type Severity Reaction Status Date / Time capsaicin [From Capzasin] Allergy Mild Itchy Eyes Verified 01/13/23 10:45 cephalexin [From Keflex] Allergy Gastrointestinal Verified 01/13/23 10:45 Upset lisinopril AdvReac Cough Verified 01/13/23 10:45 Plan I have reviewed the history and physical and performed a pertinent physical examination on my patient. No changes have occurred unless specified. Time Spent With Patient Time: Total time managing care of this patient today ____ minutes.
--- NOTE | 2023-02-02 10:54 | W.PM.OPN ---
Operative Note Operative Note Date of Service: 02/02/23 Narrative: Preop diagnosis: Rectal cancer , status post neoadjuvant chemotherapy and radiation Postop diagnosis: The same Procedure: Flexible sigmoidoscopy Surgeon: Chau Vincent MD The patient is 65-year-old male who has had a low-lying rectal cancer, and had undergone neoadjuvant chemotherapy and radiation. He is here for re-evaluation of tumor. He understood the technique of flexible sigmoidoscopy. He was aware of the risks, benefits, and alternatives He was brought to the operating room. He was placed in left lateral decubitus position under monitored anesthesia care. A surgical time-out had been done. A digital rectal exam was done. There was note of a palpable induration just at the rectal shelf which seems to be on the right side. I inserted the flexible scope through the anal canal and gently advanced this with insufflation all the way to level 20 cm. I then proceeded to withdraw the scope carefully. Examination of the anus and rectum showed this ulcerating indurated flat tumor with friability, no active bleeding. This appeared to be about 2-3 cm in size. There were no other lesions. The scope was then withdrawn completely with some desufflation He tolerated the procedure well. There were no immediate complications. He seems to have had some significant response to chemotherapy and radiation. However, he still has a residual ulcerating lesion. I will discuss his options with him as he says that he did not want to go for definitive focal treatment.
[2023-02-02 10:55] VITALS: BP 82/42; PULSE 52; RESP 14; TEMP 36.9; O2SAT 100
[2023-02-02 11:10] VITALS: BP 102/52; PULSE 55; RESP 14; O2SAT 100
[2023-02-02 11:25] VITALS: BP 123/74; PULSE 59; RESP 16; TEMP 36.4; O2SAT 98
== END 2023-02-02 12:44 | disposition home or self-care (01) ==
PROVIDERS: PCP Internal Medicine; Visit Provider Surgery
PROC: 0DJD8ZZ Inspection of Lower Intestinal Tract, Via Natural or Artificial Opening Endoscopic (ICD-10-PCS; CPT 45330; principal; 2023-02-02 09:50)
DX: C20 Malignant neoplasm of rectum (principal); Z92.21 Personal history of antineoplastic chemotherapy; Z92.3 Personal history of irradiation; F12.90 Cannabis use, unspecified, uncomplicated; F10.20 Alcohol dependence, uncomplicated; I10 Essential (primary) hypertension; G62.9 Polyneuropathy, unspecified; F41.1 Generalized anxiety disorder; R42 Dizziness and giddiness; Z79.82 Long term (current) use of aspirin; Z79.899 Other long term (current) drug therapy; Z88.1 Allergy status to other antibiotic agents; Z88.8 Allergy status to other drugs, medicaments and biological substances; Z87.891 Personal history of nicotine dependence
CPT/HCPCS: 45330

== ENCOUNTER → 2023-02-24 12:53 | Outpatient (BNVA) | payer MEDICARE, MEDICAID, SELFPAY | PROVIDERS: PCP Internal Medicine; Visit Provider Surgery | DX: C20 Malignant neoplasm of rectum (principal); Z92.21 Personal history of antineoplastic chemotherapy; Z92.3 Personal history of irradiation | CPT/HCPCS: 99212 ==

== ENCOUNTER 2023-04-02 08:06 | Outpatient (REF) | payer MEDICARE, MEDICAID, SELFPAY ==
--- NOTE | ~2023-04-02 | MR_ITS ---
EXAMINATION: MR PELVIS WITHOUT AND WITH CONTRAST CLINICAL INFORMATION: History of malignant neoplasm of the rectum. COMPARISON: CT abdomen/pelvis 05/01/2021. MR pelvis 10/21/2020. TECHNIQUE: Multiple routine MRI sequences through the pelvis were obtained on a high-field 1.5 [place] MRI before and after the uneventful administration of 7 mL Gadavist gadolinium-based IV contrast. FINDINGS: The examination was not obtained as a rectal mass protocol, high-resolution multiplanar T2 images were not obtained. However, accounting for these limitations, no discrete rectal mass is identified. The rectal wall appears well maintained with normal stratification and no discrete focal abnormality. The perirectal fat is within normal limits. No evidence of mesorectal nor extra mesorectal lymphadenopathy. The urinary bladder is under distended, limiting its evaluation, although no discrete focal abnormalities seen. The prostate gland is normal in size and the seminal vesicles are symmetric. No free fluid. Small bilateral hydroceles. Normally positioned kidneys are seen without evidence of hydronephrosis in the large [id number] coronal images; there is a 3 cm T2 bright presumed simple cyst exophytically from the lower left kidney. No acute or aggressive appearing osseous abnormalities. Subchondral cysts are noted in the left acetabulum, similar compared to 10/21/2020. MR/MR pelvis wo/w con IMPRESSION: 1. No discrete rectal mass is identified. 2. No evidence of metastatic disease in the pelvis.
== END 2023-04-02 08:07 | disposition home or self-care (01) ==
LOC: HO.MRI 08:06
PROVIDERS: PCP Internal Medicine; Visit Provider Surgery
DX: C20 Malignant neoplasm of rectum (principal)
CPT/HCPCS: 72197; A9585

== ENCOUNTER 2023-04-20 11:57 | Outpatient (REF) | payer MEDICARE, MEDICAID, SELFPAY ==
--- NOTE | ~2023-04-20 | PE_ITS ---
EXAMINATION: Fluorine-18 FDG PET/CT Scan CLINICAL INDICATION: Subsequent treatment management. Restaging rectal carcinoma. PROCEDURE: 60 minutes following the intravenous administration of 17.2 mCi of fluorine 18 FDG, images from the base of the skull to the mid thighs were obtained using a combined PET/CT scanner with CT scan based attenuation correction. No intravenous contrast was administered. Transverse, coronal, sagittal, and volume reconstruction projections were obtained. The patient's blood glucose as determined by a finger stick, was 87 mg/dl immediately prior to injection. The radiotracer was injected intravenously through right antecubital superficial vein, without any complications. Total CT exam dose-length product 383.59 mGy-cm * These CT images were obtained using dose optimization techniques as appropriate, variously including the following: Automated exposure control * Adjustment of mA and/or kV according to patient size (this includes techniques or standardized protocols for targeted exams where dose is matched to indication/reason for exam; i.e. extremities or head) * Use of iterative reconstruction technique COMPARISON: MRI of the pelvis done on 04/02/[address] of the abdomen and pelvis done on 05/01/2021. FINDINGS: NECK AND VISUALIZED HEAD: No FDG avid disease. Specifically, no FDG avid pathologically enlarged morphologically abnormal cervical lymphadenopathy present. There is a right-sided Port-A-Cath present with its tip seen projecting at the cavoatrial junction. THORAX: No FDG avid lung nodule and/or mass. There are no FDG avid mediastinal, hilar, axillary or internal mammary lymphadenopathy or pleural or pericardial effusion. ABDOMEN AND PELVIS: No FDG avid focal liver lesion to suspect metastasis. The gallbladder, biliary tree, pancreas, both adrenals and spleen appear unremarkable. Both kidneys show physiologic radiotracer activity within the pelvicalyceal system and both ureters. Incidental note is made of an exophytic cyst at mid lateral cortex of the left kidney with Hounsfield value of 3.6 (376/698). Mild FDG avidity within the stomach likely represent mild gastritis. Concordant with the provided clinical history, concentric mural thickening associated with intense FDG avidity is noted involving the rectum extending superiorly along the right lateral wall with SUV max of 8.6 (225/267). There are no perirectal FDG avid lymphadenopathy. Specifically, no FDG avid mesorectal, internal iliac, external iliac or inguinal/groin or retroperitoneal lymphadenopathy present. Small periumbilical fat only containing hernia is noted. The prostate is enlarged, shows parenchymal calcification. MUSCULOSKELETAL: No suspicious FDG avid disease. VASCULAR: Calcific atherosclerotic disease of the aorta including coronary artery calcifications are noted. No evidence of aneurysm. SUV max OF MEDIASTINAL BLOOD POOL: 1.9 SUV max OF LIVER: 1.9 PET/PET CT fusion skull to thigh IMPRESSION: 1. Corresponding to the site of clinically known malignancy, there is indeed FDG avid disease identified involving the rectum extending superiorly along the right lateral wall with SUV max of 8.6. 2. No PET CT evidence of local or distant metastatic disease.
== END 2023-04-20 11:58 | disposition home or self-care (01) ==
LOC: HO.PET 11:57
PROVIDERS: PCP Internal Medicine; Visit Provider Internal Medicine Medical Oncology
DX: Z13.89 Encounter for screening for other disorder (principal)

== ENCOUNTER 2023-09-02 10:12 | Outpatient (AMB) | payer MEDICARE, MEDICAID, SELFPAY ==
--- NOTE | 2023-09-02 10:17 | A.OFFVIS_ITS ---
Intake Vital Signs 09/02/23 10:23 Height 5 ft 8 in Weight 152 lb BMI 23.1 BP 139/71 Blood Pressure Location Rt brachial Position Sitting Pulse 77 Intake Visit Reasons: staple removal, wound check Intake Note: This patient presents for an assessment for a wound check, staple removal. Patient c/o; reports no complaints at this time. [place] Spreader Required: No Accompanied by: Self / Same As Patient Allergies capsaicin [From Capzasin] Allergy (Mild, Verified 09/02/23 10:25) Itchy Eyes cephalexin [From Keflex] Allergy (Verified 09/02/23 10:25) Gastrointestinal Upset lisinopril Adverse Reaction (Verified 09/02/23 10:25) Cough Medication List - Last Reconciled 09/02/23 by Chau Vincent MD aspirin 81 mg PO DAILY PRN atenolol 25 mg PO DAILY cholecalciferol (vitamin D3) 25 mcg PO DAILY citalopram (Celexa) 30 mg PO DAILY multivitamin 1 tab PO DAILY omega [id number]-rxe-fish oil 1,200 (144-216) mg (Fish Oil) 1 cap PO DAILY zinc 25 mg PO DAILY HPI staple removal, wound check HPI Details He had undergone abdominal perineal resection for rectal cancer last June [address] [place] [facility] [employer] [facility]. He tolerated procedure well. He says he is currently doing well. He has good function from his colostomy. He has good oral intake. He feels well overall. He says that his perineal incision is well healed He does state that he has staple left in the perineal incision. He does remain unsteady and uses a walker to ambulate. [facility] Medical History Hx of radiation therapy History of chemotherapy Port-A-Cath in place Rectal carcinoma History of alcohol abuse Neuropathy History of perforated ear drum Alcohol dependence Dizziness Anxiety HTN (hypertension) Surgical History Hx of flexible sigmoidoscopy (02/02/23) Hx of colonoscopy History of tympanoplasty of right ear Family History Sister Neuropathy Breast cancer Family/Other Colorectal cancer Brother Pancreatic cancer Mother Angina at rest Neuropathy Open angle primary glaucoma Social History Household Members: Spouse Housing: House Are you a primary career manager to a significant other at home: No Do you presently have visiting nurse or other home services: No Alcohol intake: former Patient Tobacco Use Status: Former Tobacco user Tobacco use type: Cigar Substance Use Type: Marijuana service: Yes Current occupational status: other Review of Systems Const Denies chills and Denies fever(s) Card Denies chest pain Resp Denies cough GI Denies hematochezia Denies difficulty urinating Physical Exam Vital Signs: Last Vital Signs Pulse 77 09/02/23 10:23 BP 139/71 09/02/23 10:23 BMI result Body Mass Index 23.1 Const Other: Unsteady when standing or walking General: comfortable and no acute distress Resp Effort & Inspection: normal respiratory effort Cardio Rate: regular rate GI Other: Soft, incisions well healed,, on the left side functioning well Perineal incision is well healed no hernia, 1 stapler seen, removed Assessment & Plan Assessment & Plan (1) Rectal carcinoma: Code(s): C20 - Malignant neoplasm of rectum Plan: Status post abdominal perineal resection in [place]. He is doing very well. His incisions are all well-healed. His stoma is functioning well I removed 1 last remaining staple from his perineal incision. His path report shows a T3 N0 rectal adenocarcinoma, post neoadjuvant chemotherapy and radiation. He will need continued surveillance with Ca levels every 3-6 months, follow-up chest abdomen and pelvic CT scan every 6-12 months and a colonoscopy after 1 year. He is being followed by Dr. Chahal of Oncology. Coding Level of Care Code Est Pt Level 3 (31558) Diagnoses Rectal carcinoma C20
[2023-09-02 10:23] VITALS: BP 139/71; PULSE 77; BMI 23.1
== END 2023-09-02 10:37 | disposition home or self-care (01) ==
PROVIDERS: PCP Internal Medicine; Visit Provider Surgery
DX: C20 Malignant neoplasm of rectum (principal)
CPT/HCPCS: 99213

== ENCOUNTER → 2023-09-02 10:12 | Outpatient (BNVA) | payer MEDICARE, MEDICAID, SELFPAY | PROVIDERS: PCP Internal Medicine; Visit Provider Surgery | DX: C20 Malignant neoplasm of rectum (principal) | CPT/HCPCS: 99212 ==

== ENCOUNTER 2023-11-11 09:09 | Outpatient (REF) | payer MEDICARE, MEDICAID, SELFPAY ==
--- NOTE | ~2023-11-11 | CT_ITS ---
EXAMINATION: CT CHEST WITH CONTRAST CLINICAL INFORMATION: Follow-up rectal carcinoma. COMPARISON: Chest 10/18/2020 TECHNIQUE: Multidetector volumetric CT imaging of the chest was obtained after the administration of 85 mL of Omnipaque 350 intravenous contrast without immediate adverse reactions. Axial MIP volume rendering provided. Sagittal and coronal reformatted images were obtained. This CT examination was performed using dose optimization techniques as appropriate, variously including the following: *Automated exposure control *Adjustment of mA and/or kV according to patient size (this includes techniques or standardized protocols for targeted exams where dose is matched to indication/reason for exam; i.e. extremities or head) *Use of iterative reconstruction technique DLP: 159 mGy-cm FINDINGS: PYRIDINE OPERATOR: Well-expanded lungs. LUNGS: The lungs are well-expanded and clear of acute pneumonic process. There are no pulmonary nodules, mass or consolidation. MEDIASTINUM: The thyroid lobes are symmetric and normal. The central trachea and bronchi are widely patent. Heart size and the great vessels are normal caliber. There is no pericardial effusion. There are mild coronary artery calcifications present. A right central venous port is noted with its tip in mid to distal SVC. PLEURA: There is no pleural effusion. No pleural mass or thickening. AXILLA: There are small bilateral axillary lymph nodes visualized. The chest wall is unremarkable. UPPER ABDOMEN: There is a 4 mm hypodensity left hepatic lobe probable small cyst; otherwise visualized liver, spleen, pancreas, gallbladder and bilateral adrenal glands unremarkable. There is a small cyst midpole left kidney. OSSEOUS STRUCTURES: There is no aggressive lytic or sclerotic process seen. CT/CT chest w IV con IMPRESSION: No metastatic lung nodules or lymphadenopathy seen. Unremarkable CT chest with contrast. Fleischner guidelines were followed.
--- NOTE | ~2023-11-11 | CT_ITS ---
EXAMINATION: CT ABDOMEN AND PELVIS WITH CONTRAST CLINICAL INFORMATION: Rectal carcinoma follow-up. COMPARISON: PET/CT 04/20/2023. TECHNIQUE: Multidetector volumetric images were obtained from the superior aspect of the liver through the pubic symphysis following administration 85 mL of Omnipaque 350 intravenous contrast. Sagittal and coronal reformatted images were obtained on the technologist's workstation. Oral contrast: No This CT examination was performed using dose optimization techniques as appropriate, variously including the following: *Automated exposure control *Adjustment of mA and/or kV according to patient size (this includes techniques or standardized protocols for targeted exams where dose is matched to indication/reason for exam; i.e. extremities or head) *Use of iterative reconstruction technique DLP: 466 mGy-cm FINDINGS: LUNG BASES: No metastatic disease is seen at the lung bases. LIVER, GALLBLADDER, AND BILIARY TREE: The liver is normal in size, shape, and attenuation. Tiny hepatic hypodensities are seen unchanged from 2020 consistent with small cysts. No worrisome solid focal hepatic lesion or biliary ductal dilatation is present. The gallbladder is unremarkable with no evidence of radiopaque gallstones, gallbladder wall thickening, or obvious pericholecystic inflammatory changes. PANCREAS: Unremarkable. SPLEEN: Unremarkable. ADRENAL GLANDS: Unremarkable. KIDNEYS AND URETERS: The kidneys are normal in size, shape, and attenuation. No hydronephrosis, hydroureter, or calculi seen. A benign left mid renal Bosniak class I renal cyst is noted which requires no additional imaging or follow up. No solid renal masses are seen. BLADDER: Unremarkable. GASTROINTESTINAL TRACT: Status post surgical removal of rectum and left colon. A transverse colostomy is present in the left lower quadrant. No evidence of bowel obstruction There is presacral soft tissue thickening measuring 2.2 cm, previously measuring 0.5 cm (3:66 compare prior 3:70). ABDOMINAL WALL: No significant hernia is appreciated. LYMPH NODES: No retroperitoneal lymphadenopathy. VASCULAR: Calcific atherosclerotic changes are present in the aorta and iliofemoral vessels. There is no evidence of an abdominal aortic aneurysm. PELVIC VISCERA: Unremarkable. OSSEOUS STRUCTURES: Unremarkable. CT/CT abdomen pelvis w IV con IMPRESSION: 1. Status post surgical removal of rectum and left colon with transverse colostomy in the left lower quadrant. 2. Presacral soft tissue thickening measuring 2.2 cm, previously measuring 0.5 cm. Cannot exclude recurrent tumor in this region. Follow-up PET/CT may be of value. 3. No evidence of metastatic disease in the abdomen or pelvis. 4. Other incidental findings as described above. Fleischner guidelines were followed.
== END 2023-11-11 09:10 | disposition home or self-care (01) ==
LOC: HO.CT 09:09
PROVIDERS: PCP Internal Medicine; Visit Provider Internal Medicine Medical Oncology
DX: C20 Malignant neoplasm of rectum (principal)
CPT/HCPCS: 71260; 74177; Q9967

== ENCOUNTER 2023-11-30 08:09 | Outpatient (REF) | payer MEDICARE, MEDICAID, SELFPAY ==
--- NOTE | ~2023-11-30 | PE_ITS ---
EXAMINATION: Fluorine-18 FDG PET/CT Scan CLINICAL INDICATION: Subsequent treatment management. Follow-up abnormal soft tissue in the presacral space. PROCEDURE: 75 minutes following the intravenous administration of 15.2 mCi of fluorine 18 FDG, images from the base of the skull to the mid thighs were obtained using a combined PET/CT scanner with CT scan based attenuation correction. No oral contrast was administered. No intravenous contrast was administered. Transverse, coronal, sagittal, and volume reconstruction projections were obtained. The patient's blood glucose as determined by a finger stick, was 78 mg/dl immediately prior to injection. Total CT exam dose-length product 678.35 mGy-cm * These CT images were obtained using dose optimization techniques as appropriate, variously including the following: Automated exposure control * Adjustment of mA and/or kV according to patient size (this includes techniques or standardized protocols for targeted exams where dose is matched to indication/reason for exam; i.e. extremities or head) * Use of iterative reconstruction technique COMPARISON: The previous PET CT scan dated 04/20/2023 is available for comparison. The diagnostic CT scan of the chest, abdomen, and pelvis, dated 11/11/2023, is available for comparison. FINDINGS: NECK AND VISUALIZED HEAD: No foci of abnormal FDG activity are noted. The distribution of FDG activity is physiological. There is no cervical lymphadenopathy. THORAX: There are no foci of abnormal FDG activity. No pulmonary nodules are visualized. There is no pleural or pericardial fluid or pneumothorax. There is no mediastinal, supraclavicular, or axillary lymphadenopathy. There is a subcentimeter opacity abutting the pleura posteriorly in the left lung apex that was not present on 04/20/2023. This shows no abnormal FDG activity and is likely a small focus of atelectasis or scarring. It is centered around slice 65/267. A right-sided chest port with internal jugular catheter terminating in the superior vena cava is noted. ABDOMEN AND PELVIS: The FDG avid rectal mass present on the prior 04/20/2023 PET/CT scan has been resected. There is now a left lower quadrant colostomy present with mild FDG activity associated with a colostomy without a suspicious focal component. There is now presacral soft tissue thickening present which is mildly FDG avid, SUVmax 2.5, slice 206/267. This measures approximately 4.0 x 2.1 cm in largest transverse dimensions and approximately 5.8 cm cephalocaudad. The mild FDG activity is homogeneous throughout the soft tissue thickening. This is new since the 2022 PET/CT scan performed prior to the patient's surgery, but does not appear significantly changed since the more recent diagnostic CT scan of the chest, abdomen, and pelvis. There is mild FDG activity present throughout the gastrointestinal tract without a suspicious focal component and likely physiological. The liver and spleen are unremarkable. A subcentimeter hypodensity in the left lobe of the liver is unchanged from prior studies and likely represents a simple cyst although it is much too small to characterize on the FDG PET images. This is best visualized in CT slice 116/267. There is some dependent calculi in the neck of the gallbladder, unchanged from prior studies. The gallbladder is otherwise unremarkable. The kidneys, adrenal glands, and pancreas are unremarkable. Metallic surgical clips are present in the left lower quadrant posterior to the colostomy and these were present and unchanged in appearance on the 11/11/[address] scan. There is no associated abnormal FDG activity. There is no retroperitoneal, mesenteric, pelvic or inguinal lymphadenopathy. Small bilateral fat-containing inguinal hernias are present. Other than the absence of the rectum, the pelvic organs are unremarkable. MUSCULOSKELETAL: There are no foci of abnormal FDG activity in the osseous structures. There is a mild thoracolumbar scoliosis with lumbar convexity to the left. There are no suspicious sclerotic or lytic lesions visualized. VASCULAR: Diffuse vascular calcifications including coronary are noted. Reference SUVmax Levels: Mediastinal Blood Pool: 2.1, Slice 83/267 Liver: 3.3, Slice 120/267 PET/PET CT fusion skull to thigh IMPRESSION: 1. Postoperative changes from resection of the rectum and placement of a left lower quadrant transverse colostomy. There are no FDG avid foci strongly suspicious for recurrent or metastatic malignancy. 2. Prominent presacral soft tissue thickening shows very mild diffuse FDG activity without a focal component and probably represents postoperative inflammatory changes. It does not appear significantly changed from 11/11/2023, but was not present on the prior preoperative PET CT scan dated 04/20/2023. 3. No additional abnormalities suspicious for recurrent or metastatic malignancy are noted. 4. Diffuse vascular calcifications including coronary.
== END 2023-11-30 08:10 | disposition home or self-care (01) ==
LOC: HO.PET 08:09
PROVIDERS: PCP Internal Medicine; Visit Provider Internal Medicine Medical Oncology
DX: Z13.89 Encounter for screening for other disorder (principal)

== ENCOUNTER 2024-03-29 09:58 | Outpatient (REF) | payer MEDICARE, MEDICAID, SELFPAY ==
[2024-03-29 13:19] LABS: MANUAL DIFF FLAG NO
[2024-03-29 13:24] LABS: Basophils Percent Auto 0.3 % (0-2); Eosinophils Absolute Auto 0.1 X10*3/uL (0.0-0.4); Eosinophils Percent Auto 1.6 % (0-4); Hematocrit 49.3 % (42.0-52.0); Imm Gran Abs Auto 0.01 X10*3/uL (0.00-0.03); Imm Gran Abs Auto 0.02 X10*3/uL (0.00-0.03); Imm Gran Pct Auto 0.3 % (0.0-0.4); Imm Gran Pct Auto 0.6 % (0.0-0.4); Lymphocytes Absolute Auto 0.8 X10*3/uL (1.2-4.9); Lymphocytes Percent Auto 24.6 % (20-40); Lymphocytes Percent Auto 25.8 % (20-40); Mean Corpuscular HGB Conc 32.5 g/dl (31.0-36.0); Mean Corpuscular HGB Conc 32.7 g/dl (31.0-36.0); Mean Corpuscular Hemoglobin 31.2 pg (27.0-33.0); Mean Corpuscular Hemoglobin 31.3 pg (27.0-33.0); Mean Corpuscular Volume 95.9 fL (80.0-98.0); Mean Corpuscular Volume 96.1 fL (80.0-98.0); Mean Platelet Volume 10.1 fL (9.4-12.4); Monocytes Absolute Auto 0.4 X10*3/uL (0.1-1.2); Monocytes Percent Auto 11.2 % (2-11); Monocytes Percent Auto 11.6 % (2-11); Neutrophils Absolute Auto 1.9 x10*3/uL (2.0-8.3); Neutrophils Percent Auto 60.1 % (45-73); Platelet Count 151 X10*3/uL (160-400); Platelet Count 156 X10*3/uL (160-400); Red Blood Count 5.11 X10*6/uL (4.60-5.80); Red Blood Count 5.13 X10*6/uL (4.60-5.80); Red Cell Distribution Width 13.1 % (11.0-16.0); Red Cell Distribution Width 13.2 % (11.0-16.0); White Blood Count 3.1 X10*3/uL (4.8-10.8)
[2024-03-29 13:45] LABS: Alanine Aminotransferase 14 U/L (0-40); Albumin Level 4.7 g/dL (3.5-5.0); Alkaline Phosphatase 87 U/L (39-117); Anion Gap 16 (12-20); Aspartate Amino Transferase 15 U/L (5-37); Bilirubin Total 1.2 mg/dL (0.0-1.0); Blood Urea Nitrogen 15 mg/dL (9-16); Calcium 10.6 mg/dL (8.4-10.2); Carbon Dioxide 27 mmol/L (22-29); Chloride 106 mmol/L (96-108); Cholesterol 262 mg/dL (<200); Estimated Glomerular Filt Rate > 60; Glucose Random 105 mg/dL (60-115); HDL Cholesterol 55 mg/dL (>40); LDL Cholesterol Calculated 181 mg/dL (<100); Sodium 144 mmol/L (135-145); Total Protein 7.8 g/dL (6.5-8.0); Triglycerides 131 mg/dL (<150)
[2024-03-29 13:46] LABS: Alanine Aminotransferase 14 U/L (0-40); Albumin Level 4.7 g/dL (3.5-5.0); Alkaline Phosphatase 88 U/L (39-117); Anion Gap 16 (12-20); Aspartate Amino Transferase 16 U/L (5-37); Bilirubin Total 1.2 mg/dL (0.0-1.0); Blood Urea Nitrogen 15 mg/dL (9-16); Calcium 10.5 mg/dL (8.4-10.2); Carbon Dioxide 27 mmol/L (22-29); Chloride 105 mmol/L (96-108); Estimated Glomerular Filt Rate > 60; Glucose Random 103 mg/dL (60-115); Potassium 4.8 mmol/L (3.3-5.1); Sodium 143 mmol/L (135-145)
[2024-03-29 14:00] LABS: Vitamin B12 488 pg/mL (200-900)
[2024-03-29 14:03] LABS: Vitamin D 25-OH Total 41.8 ng/mL (>30)
[2024-03-29 14:05] LABS: Carcinoembryonic Antigen < 1.73 ng/mL
[2024-04-05 16:48] LABS: Testosterone, Free 63.7 pg/mL (35.0-155.0); Testosterone, Total 559 ng/dL (250-1100)
== END 2024-03-29 09:59 | disposition home or self-care (01) ==
LOC: HO.MANLDS 09:58
PROVIDERS: Internal Medicine Medical Oncology; Visit Provider Internal Medicine
DX: C18.9 Malignant neoplasm of colon, unspecified (principal); T45.1X5A Adverse effect of antineoplastic and immunosuppressive drugs, initial encounter; Z12.5 Encounter for screening for malignant neoplasm of prostate; F52.21 Male erectile disorder; I10 Essential (primary) hypertension
CPT/HCPCS: 36415; 80053; 80061; 82306; 82378; 82607; 84153; 84402; 84403; 85025; 86787

== ENCOUNTER 2024-05-18 09:01 | Outpatient (REF) | payer MEDICARE, MEDICAID, SELFPAY ==
--- NOTE | ~2024-05-18 | CT_ITS ---
EXAMINATION: CT ABDOMEN AND PELVIS WITH CONTRAST CLINICAL INFORMATION: Restaging rectal carcinoma. COMPARISON: PET/CT 11/30/[address] chest abdomen pelvis 11/11/2023. TECHNIQUE: Multidetector volumetric images were obtained from the superior aspect of the liver through the pubic symphysis following administration 85 mL of Omnipaque 350 intravenous contrast. Sagittal and coronal reformatted images were obtained on the technologist's workstation. Oral contrast: No This CT examination was performed using dose optimization techniques as appropriate, variously including the following: *Automated exposure control *Adjustment of mA and/or kV according to patient size (this includes techniques or standardized protocols for targeted exams where dose is matched to indication/reason for exam; i.e. extremities or head) *Use of iterative reconstruction technique DLP: 120 mGy-cm FINDINGS: LUNGS: The lungs are well-expanded and clear of acute pneumonic process. There are no pulmonary nodules, mass or consolidation. MEDIASTINUM: The thyroid lobes are symmetric and normal. The central trachea and bronchi are widely patent. Heart size and the great vessels are normal caliber. There is no pericardial effusion. There are mild coronary artery calcifications present. A right IJ venous port is noted with its tip in mid to distal SVC. PLEURA: There is no pleural effusion. No pleural mass or thickening. AXILLA/CHEST WALL: There are small bilateral axillary lymph nodes visualized without adenopathy. The chest wall is unremarkable aside from right sided port.. LIVER, GALLBLADDER, AND BILIARY TREE: The liver is normal in size, shape, and attenuation. Tiny hepatic hypodensities are seen unchanged dating back to 2020 consistent with small cysts. No worrisome solid focal hepatic lesion or biliary ductal dilatation is present. The gallbladder is unremarkable with no evidence of radiopaque gallstones, gallbladder wall thickening, or obvious pericholecystic inflammatory changes. PANCREAS: Unremarkable. SPLEEN: Unremarkable. ADRENAL GLANDS: Unremarkable. KIDNEYS AND URETERS: The kidneys are normal in size, shape, and attenuation. No hydronephrosis, hydroureter, or calculi seen. A benign left mid renal Bosniak class I renal cyst is again seen mwhich requires no additional imaging or follow up. No solid renal masses are seen. BLADDER: Unremarkable. GASTROINTESTINAL TRACT: Status post surgical removal of rectum and left colon. A transverse colostomy is present in the left lower quadrant. No evidence of bowel obstruction unchanged presacral soft tissue thickening measuring 2.2 cm. ABDOMINAL WALL: No significant hernia is appreciated. Small bilateral inguinal hernias present containing only fat LYMPH NODES: No retroperitoneal lymphadenopathy. VASCULAR: Calcific atherosclerotic changes are present in the aorta and iliofemoral vessels. There is no evidence of an abdominal aortic aneurysm. PELVIC VISCERA: Unremarkable. OSSEOUS STRUCTURES: Unremarkable. CT/CT abdomen pelvis w IV con IMPRESSION: 1. No evidence of metastatic disease in the chest, abdomen or pelvis. 2. Status post resection of rectum and left colon with transverse colostomy in the left lower quadrant. 3. Other incidental findings as described above. Fleischner guidelines were followed.
[2024-05-18] MEDS: Barium Sulfate Oral (Berry) 450 ML ORAL.SUSP 900 ML PO (11:25)
[2024-05-18] MEDS: iohexoL 350 MG/ML 75 ML INFUS..BTL 85 ML IV (11:25)
[2024-05-19 07:31] LABS: Creatinine POC 0.8 mg/dL (0.5-1.4); GFR POC > 60
== END 2024-05-18 09:02 | disposition home or self-care (01) ==
LOC: HO.CT 09:01
PROVIDERS: PCP Internal Medicine; Visit Provider Internal Medicine Medical Oncology
DX: C20 Malignant neoplasm of rectum (principal)
CPT/HCPCS: 71260; 74177; 82565; Q9967

== ENCOUNTER → 2024-12-11 12:37 | Outpatient (BNV) | payer MEDICARE, MEDICAID, SELFPAY | PROVIDERS: PCP Internal Medicine; Visit Provider Radiology Diagnostic Radiology | DX: C20 Malignant neoplasm of rectum (principal) | CPT/HCPCS: 71260; 74177 ==

== ENCOUNTER 2025-02-07 08:48 | Outpatient (REF) | payer MEDICARE, MEDICAID, SELFPAY ==
--- NOTE | 2025-02-07 08:52 | EMG_ITS ---
Chief complaint: History of chemotherapy and radiation in the last 3 years. Gait observed, slaps feet when walking. Able to dorsiflex with lying supine. Reason for referral: Evaluate for neuropathy Referred by: Dr. Douglas Procedure done: Upper and lower extremity NCS/EMG Precautions and/or limitations: He had a pressure sore on right lateral leg/calf that just close a week ago, needle EMG deferred on right lower extremity. He has a Port-A-Cath on right chest. Colostomy bag left abdomen. The limb temperature was monitored continuously and remained between 32-36 degrees C during the performance of the NCS. Nerve Conduction Studies Anti Sensory Summary Table ?Stim Site NR Onset (ms) Norm Onset (ms) Peak (ms) Norm Peak (ms) O-P Amp (?V) Norm O-P Amp Site1 Site2 Delta-0 (ms) Dist (cm) Bonifacio (m/s) Norm Bonifacio (m/s) Left Median Anti Sensory (2nd Digit) Wrist NR <3.6 >10 Wrist 2nd Digit 14.0 Right Median Anti Sensory (2nd Digit) Wrist ? 3.2 4.1 <3.6 7.9 >10 Wrist 2nd Digit 3.2 14.0 44 Right Radial Anti Sensory (Thumb) Forearm ? 2.0 2.7 <3.1 8.6 Forearm Thumb 2.0 0.0 Left Sural Anti Sensory (Lat Mall) Calf NR <4.0 >5.0 Calf Lat Mall 14.0 Right Sural Anti Sensory (Lat Mall) Calf NR <4.0 >5.0 Calf Lat Mall 14.0 Left Ulnar Anti Sensory (5th Digit) Wrist NR <3.7 >15.0 Wrist 5th Digit 14.0 Right Ulnar Anti Sensory (5th Digit) Wrist ? 3.3 4.4 <3.7 2.2 >15.0 Wrist 5th Digit 3.3 14.0 42 Motor Summary Table ?Stim Site NR Onset (ms) Norm Onset (ms) O-P Amp (mV) Norm O-P Amp iAmp (mV) Amp (1st) (%) Site1 Site2 Delta-0 (ms) Dist (cm) Bonifacio (m/s) Norm Bonifacio (m/s) Left Median Motor (Abd Poll Brev) Wrist ? 3.3 <3.9 10.3 >4.5 12.9 100.0 Elbow Wrist 4.7 21.5 46 >45 Elbow ? 8.0 9.4 11.9 91.3 Right Median Motor (Abd Poll Brev) Wrist ? 3.8 <3.9 8.0 >4.5 10.0 100.0 Elbow Wrist 4.6 21.0 46 >45 Elbow ? 8.4 7.4 9.2 92.5 Left Peroneal Motor (Ext Dig Brev) Ankle NR <4.0 >2.5 Ankle Ext Dig Brev 0.0 B Fib NR B Fib Ankle 0.0 >40 Poplt NR Poplt B Fib 0.0 >40 Left Tibial Motor (Abd Jacques Brev) Ankle ? 7.7 <5 3.2 >2.5 3.9 100.0 Ankle Abd Jacques Brev 7.7 0.0 Knee ? 19.9 2.7 2.9 84.4 Knee Ankle 12.2 43.0 35 >40 Left Ulnar Motor (Abd Dig Minimi) Wrist ? 3.8 <3.0 7.6 >5 9.0 100.0 B Elbow Wrist 3.5 18.0 51 >45 B Elbow ? 7.3 5.7 7.8 75.0 A Elbow B Elbow 1.7 10.0 59 >45 A Elbow ? 9.0 5.5 8.3 72.4 Right Ulnar Motor (Abd Dig Minimi) Wrist ? 3.6 <3.0 8.3 >5 10.2 100.0 B Elbow Wrist 4.1 19.0 46 >45 B Elbow ? 7.7 7.5 9.9 90.4 A Elbow B Elbow 1.9 10.0 53 >45 A Elbow ? 9.6 7.0 9.3 84.3 EMG ?Side Muscle Nerve Root Ins Act Fibs Psw Amp Dur Poly Recrt Int Pat Comment Left 1stDorInt Ulnar C8-T1 Nml Nml Nml Nml Nml 0 Nml Complete Left FlexCarRad Median C6-7 Nml Nml Nml Nml Nml 0 Nml Complete Left Biceps Musculocut C5-6 Nml Nml Nml Nml Nml 0 Nml Complete Left Triceps Radial C6-7-8 Nml Nml Nml Nml Nml 0 Nml Complete Left Deltoid Axillary C5-6 Nml Nml Nml Nml Nml 0 Nml Complete Left AbdHallucis MedPlantar S1-2 Incr 1+ 1+ Nml Nml 0 Nml Complete Left AntTibialis Dp Br Peron L4-5 Nml Nml Nml Nml Nml 0 Nml Complete Left PostTibialis Tibial L5, S1 Nml Nml Nml Nml Nml 0 Nml Complete Left MedGastroc Tibial S1-2 Nml Nml Nml Nml Nml 0 Nml Complete Left VastusMed Femoral L2-4 Nml Nml Nml Nml Nml 0 Nml Complete Paraspinal EMG ?Side Muscle Nerve Root Ins Act Fibs Psw Comment Right Cervical Upper Rami Nml Nml Nml Right Cervical Mid Rami Nml Nml Nml Right Cervical Lower Rami Nml Nml Nml Left Cervical Upper Rami Nml Nml Nml Left Cervical Mid Rami Nml Nml Nml Left Cervical Lower Rami Nml Nml Nml FINDINGS: Bilateral upper motor nerves showed prolonged distal latency, normal amplitude and normal conduction velocity. Right median sensory nerve showed prolonged peak latencies and small amplitudes. Left median sensory showed absent response. Right ulnar sensory nerve showed prolonged peak latencies and small amplitude. Left ulnar sensory showed absent response. Right radial sensory nerve showed small amplitude. Left peroneal nerve showed absent response. Left tibial nerve showed prolonged distal latency, small amplitude and normal conduction velocity. Bilateral sural nerves showed absent response. Concentric needle EMG was performed in selected muscles of the left lower extremity, left upper extremity, bilateral cervical paraspinals. Study revealed signs of electric abnormalities as shown in the table above. Left AH showed increased insertional activity, PSWs and fibrillations. IMPRESSION: 1. This is an abnormal study. 2. 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 Thank you for your kind referral. Medina Esqueda MD, KRISSY Board Certified, [place] Board of Physical Medicine and Rehabilitation (ABPMR) Board Certified, [place] Board of Electrodiagnostic Medicine (ABEM) CODIN [id number] x 2 [id number] x 1 MTDD
--- OUTSIDE RECORDS SUMMARY | 2025-02-07 09:26 | XMS_ITS | Data Portability ---
Author Organization [facility] Home Service Address [address] [place] [address] Assessment Encounter Date Assessment Date Assessment LastModified by Organization Details LastModified Time 03/29/2024 03/29/2024 [id number] [place] [id number] (SALES LEAD GENERATOR) MDM HIGH MUST MEET 2 OUT OF 3 ELEMENTS: PROBLEMS, DATA OR RISK ELEMENT 1: PROBLEMS 1 OR MORE CHRONIC ILLNESS W/SEVERE EXACERBATION, PROGRESSION MAY REQUIRE HOSPITAL LEVEL CARE OR 1 ACUTE OR CHRONIC ILLNESS OR INJURY THAT POSES A THREAT TO LIFE OR BODILY FUNCTION ELEMENT 2: DATA: MUST MEET 2 OF 3 CATEGORIES CATEGORY 1 REVIEW OF PRIOR EXTERNAL NOTES REVIEW OF THE RESULTS ORDERING OF EACH TEST ASSESSMENT REQUIRING INDEPENDENT HISTORIAN(S) CATEGORY 2: INDEPENDENT INTERPRETATION OF TESTS BY ANOTHER PROVIDER/SPECIALI ST CATEGORY 3: DISCUSSION OF MGT OR TEST INTERPRETATION W/EXTERNAL PHYSICIAN/SPECIAL IST ELEMENT 3: RISK HIGH RISK OF MORBIDITY FROM ADDITIONAL DIAGNOSTIC TESTING OR TREATMENT PROVIDER MUST THOROUGHLY DOCUMENT EACH ELEMENT THAT IS COVERED Not available 03/29/2024 09:55:56 06/23/2024 06/23/2024 Patient presente d to office today for their Medicare Annual Wellness Visit. Education was provided on healthy nutrition, including a diet rich in fruits and vegetables, minimizing simple carbohydrates, salt, and saturated fats. Encouraged regular cardiovascular exercise such as walking at least 30 minutes daily, 5 times per week. Emphasized preventive health measures and educated pt on fall prevention and community-based lifestyle interventions to help reduce health risks and promote healthy living. Not available 06/23/2024 10:02:26 01/05/2025 01/05/2025 [id number] [place] [id number] (SALES LEAD GENERATOR) MDM HIGH MUST MEET 2 OUT OF 3 ELEMENTS: PROBLEMS, DATA OR RISK ELEMENT 1: PROBLEMS 1 OR MORE CHRONIC ILLNESS W/SEVERE EXACERBATION, PROGRESSION MAY REQUIRE HOSPITAL LEVEL CARE OR 1 ACUTE OR CHRONIC ILLNESS OR INJURY THAT POSES A THREAT TO LIFE OR BODILY FUNCTION ELEMENT 2: DATA: MUST MEET 2 OF 3 CATEGORIES CATEGORY 1 REVIEW OF PRIOR EXTERNAL NOTES REVIEW OF THE RESULTS ORDERING OF EACH TEST ASSESSMENT REQUIRING INDEPENDENT HISTORIAN(S) CATEGORY 2: INDEPENDENT INTERPRETATION OF TESTS BY ANOTHER PROVIDER/SPECIALI ST CATEGORY 3: DISCUSSION OF MGT OR TEST INTERPRETATION W/EXTERNAL PHYSICIAN/SPECIAL IST ELEMENT 3: RISK HIGH RISK OF MORBIDITY FROM ADDITIONAL DIAGNOSTIC TESTING OR TREATMENT PROVIDER MUST THOROUGHLY DOCUMENT EACH ELEMENT THAT IS COVERED The patient presented to their appointment today for multiple concerns requiring moderate to high-level decision making and took over 40-45 minutes for an adequate and appropriate history, exam, assessment and treatment plan. This appointment was done with an established patient. Not available 01/05/2025 12:31:16 Plan of Treatment Reminders Order Date Submit Date Provider Last Modified By Organization Details Last Modified Time Details Appointments FOLLOW UP 15 2024 10:45A M DR VALENCIA Not available Not available Not available Lab vitamin B12, serum 2024 025 [facility], [address] [place] [address], [address], 01/05/2025 12:41:50 vitamin D, 25-hydrox y, total, serum 2024 025 [facility], [address] [place] [address], [address], 01/05/2025 12:41:50 varicella -zoster igg Ab screen, serum 2023 024 [facility], [address] [place] [address], [place], [address], 04/03/2024 11:07:17 testoster one, free + total, serum 2023 024 [facility], [address] [place] [address], [address], 04/06/2024 11:07:22 vitamin B12, serum 2023 024 [facility], [address] [place] [address], [address], 03/29/2024 09:57:08 vitamin D, 25-hydrox y, total, serum 2023 024 [facility], [address] [place] [address], [address], 03/29/2024 09:57:08 CBC w/ diff 2023 024 [facility], [address] [place], [address], 03/29/2024 09:57:08 CMP, serum or plasma 2023 024 [facility], [address] [place], [address], 03/30/2024 11:11:24 PSA, serum or plasma 2023 024 [facility], [address] [place], [address], 03/29/2024 09:57:08 lipid panel, blood 2023 024 [facility], [address] [place] [address], [address], 03/29/2024 09:57:08 Referral None recorded. Procedures None recorded. Surgeries None recorded. Imaging electromy ogram + nerve conductio n study 2024 025 [facility], [address] [place] [address], [place], [address], 01/12/2025 08:21:37 PET-CT, whole body scan - stage 3 colon cancer PET scan for metastati c eval 2022 023 [facility] (Outpt Imaging), [address] [place] [address], [address], 03/17/2023 08:34:59 Medication Orders sildenafi l 50 mg tablet 2024 025 [id number], [address] [place], [phone], 01/05/2025 12:48:58 valsartan 80 mg tablet 2019 020 [id number], [address] [place], [place], [phone], 03/29/2024 09:25:58 Patient TargetsNo targets recorded. Patient Instructions Encounter Date Encounter Id Patient Instructions Last Modified By Organization Details Last Modified Time 11/20/2019 [id number] psoriasis: care instructions Not available 11/20/2019 09:29:26 high blood pressure: care instructions Not available 11/20/2019 09:29:26 learning about high blood pressure Not available 11/20/2019 09:29:26 skin lesions: care instructions Not available 11/20/2019 09:30:10 03/29/2024 [id number] high blood pressure: care instructions Not available 03/29/2024 09:50:58 learning about high blood pressure Not available 03/29/2024 09:50:58 06/23/2024 [id number] advance care planning: care instructions Not available 06/23/2024 10:36:18 Discussed and explained advance directives such as standard forms to the {{patient caregiv er patient and caregiver}}. Face to face discussion lasted for a duration of ___ minutes. Not available 06/23/2024 10:02:26 Reason for Referral None Reported. Results Created Date Observation Date Name Description Value Unit Range Abnormal Flag Note LastModifiedBy Organization Detail LastModifiedTime 11/18/19 24 11/11/2023 CT, abdom en + pelvi s, w/ contr ast No observ ation record ed. [email or web address] [place] [address] (Medical Records) [address] [place], [address], 11/19/2023 07:57:18 11/19/19 24 11/11/2023 XR, chest , 2 view No observ ation record ed. [address] (Medical Records) [address] [place], [address], 11/19/2023 08:52:58 12/02/19 24 11/30/2023 PET-C T, whole body scan No observ ation record ed. [facility] (Medical Records) [address] [place], [address], 12/02/2023 21:51:29 05/20/20 24 05/18/2024 CT, abdom en + pelvi s, w/ contr ast No observ ation record ed. [address] (Medical Records) [address] [place], [id number], 05/22/2024 08:24:45 05/20/20 24 05/18/2024 CT, abdom en + pelvi s, w/ contr ast No observ ation record ed. [address] (Medical Records) [address] [place], [id number], 05/22/2024 08:25:52 12/11/19 25 12/11/2024 CT, abdom en + pelvi s, w/o contr ast No observ ation record ed. [address] (Medical Records) [address] [place], [id number], 12/12/2024 08:31:12 12/11/19 25 12/11/2024 CT, chest , w/o contr ast No observ ation record ed. [address] (Medical Records) [address] [place], [id number], 12/12/2024 08:31:39 12/11/19 25 12/11/2024 CT, chest + abdom en + pelvi s, w/ contr ast No observ ation record ed. [email or web address] [facility] (Medical Records) [address] [facility], [place], [address], 12/12/2024 08:32:20 Result Notes None recorded. Problems Name Problem SNOMED Code Status Onset Date Resolution Date Notes Provider Name and Address Organization Details Recorded Time Malignant tumor of rectum 317609211 Active 2020 DALIA JOHNSON [address] [place] [address], [address], [facility] 1 12:45:49 Carcinoma of colon, stage III 510524578 Active 2022 Mason Valencia DO [address] [place] [address], [address], [facility] 3 12:33:17 Orthostat ic hypotensi on 26772670 Active 2023 Mason Valencia DO [address] [place] [address], [address], [facility] 4 09:43:37 Periphera l 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 astic therapy 805266672 Active 2023 Mason Valencia DO [address] [place] [address], [address], [facility] 4 09:43:49 Erectile dysfuncti on 421068153 Active 2023 Mason Valencia DO [address] [place] [address], [address], [facility] 4 09:48:13 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 652016822 Active 2023 Mason Valencia DO [address] [place] [address], [address], [facility] 4 10:21:18 Pain in left foot 534398327802 107 Active 2024 Mason Valencia DO [address] [place] [address], [address], [facility] 5 12:35:13 Arthritis 4115768 Active 2017 [facility] 8 15:58:05 Umbilical hernia 533320241 Active 2017 [facility] 8 15:58:16 Essential hypertens ion 00043180 Active 2017 [facility] 8 15:58:22 Psoriasis 0998699 Active 2017 [facility] 8 15:58:33 Urethral stenosis 877782200 Active 2017 [facility] 8 15:58:47 Alcohol abuse 34123638 Active 2017 Sunitalatonia Toro [facility] 8 15:59:11 Mixed hyperlipi demia 611407323 Active 2017 [facility] 8 15:59:22 Alcoholic polyneuro kevin 5769685 Active 2017 [facility] 8 15:59:56 Problem Notes None recorded. Procedures Surgical History Date Name Laterality Status Provider Name and Address Organization Details Recorded Time 021 Flexible Sigmoidoscopy completed Galdino Valencia [facility] 04/25/2021 11:34:49 019 WOUND CARE completed February [address] [place] [address], [phone], [facility] 11/15/2018 09:53:23 Imaging Results Imaging Date Name Status LastModified by Organiz ation Details LastModified Time 11/11/2023 CT, abdomen + pelvis, w/ contrast completed [address] (Medical Records) [address] [place] [address], [address], 11/19/2023 07:57:18 11/11/2023 XR, chest, 2 view [address] (Medical Records) [address] [place], [address], 11/19/2023 08:52:58 11/30/2023 PET-CT, whole body scan completed [email or web address] [facility] (Medical Records) [address] [place], [address], 12/02/2023 21:51:29 05/18/2024 CT, abdomen + pelvis, w/ contrast completed [address] (Medical Records) [address] [place], [address], 05/22/2024 08:24:45 05/18/2024 CT, abdomen + pelvis, w/ contrast completed [address] (Medical Records) [address] [place], [address], 05/22/2024 08:25:52 12/11/2024 CT, abdomen + pelvis, w/o contrast completed [address] (Medical Records) [address] [place], [address], 12/12/2024 08:31:12 12/11/2024 CT, chest, w/o contrast completed [address] (Medical Records) [address] [place], [address], 12/12/2024 08:31:39 12/11/2024 CT, chest + abdomen + pelvis, w/ contrast completed [address] (Medical Records) [address] [place], [address], 12/12/2024 08:32:20 Procedure Notes None recorded. Medical Equipment None Reported. Allergies Allergen ID Allergen Name Allergen Category Reaction Reaction Severity Criticality Documentation Date Start Date Code Code System Note Provider Name and Address Organization Details Recorded Time 1906 lisinopri l medicatio n cough Not available Not available 05/24/2018 53115 RxNorm sexua l side effec ts Sunita arceo [place] - [facility] 07/17/201 8 10:51:34 1907 capsaicin medicatio n rash Not available Not available 05/24/2018 1992 RxNorm Sunita arceo [facility] 8 10:52:25 2668 Keflex medicatio n abdominal pain Not available Not available 11/15/2018 38389 7 RxNorm Sunita arceo [facility] 9 09:17:32 Medications Name Sig Start Date Stop Date Status Note LastModified by Organization Details LastModified Time fleet enema extra PLACE 1 ENEMA RECTALLY AT BEDTIME NEEDED FOR CONSTIPAT ION active Not Available Not Available No t Available doxycycline hyclate 100 mg capsule 11/20 completed Not Available Not Available Not Available citalopram 40 mg tablet Take 1 tablet every day by oral route. 06/12 completed Not Available Not Available Not Available Vitamin C 500 mg tablet Take 1 tablet by oral route. 2020 active Not Available Not Available Not Avai lable sildenafil 50 mg tablet TAKE 1 TABLET BY MOUTH EVERY DAY 2024 active Not Available Not Available Not Avai lable ondansetron HCl 8 mg tablet TAKE 1 TABLET BY MOUTH THREE TIMES DAILY 09/08 completed Not Available Not Available Not Available naltrexone 50 mg tablet TAKE 1 TABLET BY MOUTH EVERY DAY 09/08 completed Not Available Not Available Not Available ondansetron HCl 4 mg tablet TAKE 2 TABLETS BY MOUTH EVERY 8 HOURS NEEDED FORNAUSEA AND VOMITING 09/08 completed Not Available Not Available Not Available atenolol 25 mg tablet TAKE 1 TABLET BY MOUTH EVERY DAY active Not Available Not Available No t Available valsartan 80 mg tablet TAKE 1 TABLET BY MOUTH EVERY DAY 03/29 completed Not Available Not Available Not Available ciprofloxac in 500 mg tablet Take 1 tablet every 12 hours by oral route for 7 days. 11/20 completed Not Available Not Available Not Available citalopram 20 mg tablet Take 1 tablet every day by oral route. 01/05 completed Not Available Not Available Not Available Silvadene 1 % topical cream APPLY A 1/16 INCH (1.5 MM) THICK LAYER TO ENTIRE AFFECTED AREA BY TOPICALRO MARLENA 2 TIMES PER DAY 11/20 completed Not Available Not Available Not Available dexamethaso ne 4 mg tablet TAKE 1 TABLET BY MOUTH TWICE DAILY 03/16 completed Not Available Not Available Not Available atenolol 50 mg tablet TAKE 1 TABLET BY MOUTH EVERY DAY NO FULL MONTH SUPPLY NEEDS APPT CALL OFFICE 01/26 completed Not Available Not Available Not Available loratadine 10 mg tablet TAKE 1 TABLET BY MOUTH EVERY DAY 06/23 completed Not Available Not Available Not Available naproxen 500 mg tablet 11/20 completed Not Available Not Available Not Available B-Complex tablet Take 1 tablet by oral route. 2020 active Not Available Not Available Not Avai lable valsartan 40 mg tablet take 1 tablet by mouth once a day 03/29 completed Not Available Not Available Not Available Fish Oil 06/23 completed Not Available Not Available Not Available Aspir-81 Take one tablet once a day active Not Available Not Available No t Available multivitami n Take one tablet once a day 03/29 completed Not Available Not Available Not Available Fish Oil 340 mg-1,000 mg capsule TAKE 1 CAPSULE BY MOUTH TWICE DAILY 03/29 completed Not Available Not Available Not Available B-complex with vitamin C 400 mcg-500 mg tablet Take 1 tablet every day by oral route for 90 days. 06/23 completed Not Available Not Available Not Available Vitamin D3 50 mcg (2,000 unit) tablet TAKE 1 TABLET BY MOUTH EVERY DAY active Not Available Not Available No t Available Probiotic 03/29 completed Not Available Not Available Not Available Fish Oil 1,000 mg (120 mg-180 mg) capsule Take 1 capsule twice a day by oral route for 90 days. 2020 active Not Available Not Available Not Avai lable Centrum Silver Men 300 mcg-60 mcg-600 mcg-300 mcg tablet Take 1 tablet by oral route. 2020 active Not Available Not Available Not Avai lable Men's Multivitami n 400 mcg-20 mcg-300 mcg tablet Take 1 tablet every day by oral route for 90 days. 06/23 completed Not Available Not Available Not Available MarciW COVID-19 Ag Self Test kit TEST DIRECTED TODAY 03/29 completed Not Available Not Available Not Available Vitals Date Recorded Body weight Heart rate Oxygen saturation Oxygen saturation in Arterial blood by Pulse oximetry Provider Name and Address Organization Details Last Updated DateTime 11/20/2019 30024.02 g 64 /min 100 % 100 % Sunita Toro [facility] 11/20/2019 09:04:27 Date Recorded Systolic blood pressure Diastolic blood pressure Provider Name and Address Organization Details Last Updated DateTime 11/20/2019 118 mm[Hg] 96 mm[Hg] February Cheryl [address], [address], [facility] 11/20/2019 09:25:18 Date Recorded Body weight Heart rate Oxygen saturation Oxygen saturation in Arterial blood by Pulse oximetry Systolic blood pressure Diastolic blood pressure Provider Name and Address Organization Details Last Updated DateTime 3 19961.0 4 g 62 /min 99 % 99 % 138 mm[Hg] 78 mm[Hg] Vivian May [facility] 3 12:04:59 Date Recorded Body height Body mass index (BMI) Body weight Heart rate Respiratory rate Oxygen saturation Oxygen saturation in Arterial blood by Pulse oximetry Systolic blood pressure Diastolic blood pressure Provider Name and Address Organization Details Last Updated DateTime 4 172.72 cm 23.6 kg/m2 44538.8 2 g 74 /min 18 /min 99 % 99 % 124 mm[Hg] 74 mm[Hg] Lazarus Guadalupe [facility] 4 09:24:00 Date Recorded Body height Body mass index (BMI) Body weight Heart rate Oxygen saturation Oxygen saturation in Arterial blood by Pulse oximetry Systolic blood pressure Diastolic blood pressure Provider Name and Address Organization Details Last Updated DateTime 4 172.72 cm 22.8 kg/m2 00654.8 6 g 82 /min 99 % 99 % 122 mm[Hg] 72 mm[Hg] Lazarus Guadalupe [facility] 4 10:05:11 Date Recorded Body height Body mass index (BMI) Body weight Heart rate Oxygen saturation Oxygen saturation in Arterial blood by Pulse oximetry Systolic blood pressure Diastolic blood pressure Provider Name and Address Organization Details Last Updated DateTime 5 172.72 cm 22.8 kg/m2 94982.8 6 g 58 /min 98 % 98 % 116 mm[Hg] 72 mm[Hg] Lazarus [place] [facility] 12:05:24 Social History Question Answer Notes LastModified by Organizat ion Details LastModified Time Tobacco Smoking Status Former Smoker Not Available [facility]10/2020 03:36:23 What Was The Date Of Your Most Recent Tobacco Screening? 01/05/2025 Information not available 01/05/2025 Do You Or Have You Ever Used Any Other Forms Of Tobacco Or Nicotine? No [email or web address] Information not available 03/16/2023 Sex: Unknown Functional Status None recorded. Mental Status None recorded. Family History Nothing Reported. Medical History No medical history recorded. Immunizations Vaccine Type Date Status Note Provider Nam e and Address Organization Details Recorded Time Tdap 08/08/2016 completed February AGUEDA Luna [address] [place] [address], [address], [facility] 05/24/2018 11:07:35 Past Encounters Encounter ID Performer Location Encounter Start Date Encounter Closed Date Diagnosis/Indication Diagnosis SNOMED-CT Code Diagnosis ICD10 Code Diagnosis Note [id number] February Cheryl [facility] [address] [place] [address],[place] [address] 05/24/2018 10:42:20 05/24/2018 11:54:05 Essential hypertension 58386047 I10 stable Adult heal th examination 102481825 Z00.00 reports irregular sleep and eating due to work schedule. admits may be dehydrated hence abnormal urine dipstick. recheck urine pt would like to do cologard, he will contact his insurance for coverage Neuropathy 676758845 G62 .9 absent sensation of b/l LE advised pt that his reported alcohol use is excessive and may be causing nerve damage. It was recommende d that he stop drinking to see if some of these sx improve I will also recommend seeing neuro due to the extent of his sx. we'll check labs as above [id number] February [facility] [address] [place] [address],[place] [address] 07/05/2018 08:54:51 07/05/2018 13:45:26 Hyperkalemia 24261709 E87.5 very mild elevation of potassium in setting of slightly elevated calcium and glucose Neuropathy 306218763 G62 .9 he will continue to taper etoh he will schedule with dr strickland directly Screening for malignant neoplasm of colon 320605631 Z12.11 [id number] [facility] [address] [place] [address] 11/15/2018 09:10:01 11/15/2018 10:50:55 Open wound of toe 076885976 S91.102A left great toe + left 2nd toe may possibly need unroofing and debridemen t of the great toe wound will refer to gen surg for this will also need f/u wound care and we will send him to [facility] where he had been seen before 2nd toe will do silvadene topically Mixed hyperlipidemia 267 953291 E78.2 Essential hypertension 20257670 I10 MILDLY ELEVATED TODAY WILL MONITOR [id number] [facility] [address] [facility],[place] [address] 11/20/2019 08:54:44 11/20/2019 09:50:05 Essential hypertension 29393129 I10 not well controlled add valsartan cannot tolerate increase in atenolol due to fatigue Psoriasis 9407319 L40.9 Skin lesion 78862796 L98 .9 not sure what he had perhaps a cyst, but seems to be well healed now monitor for change [id number] Mason Valencia [facility] [address] [place] [address] 03/16/2023 11:56:11 03/16/2023 15:24:47 Carcinoma of colon, stage III 603710360 C18.9 in preparatio n for possible reconstruc tive colon surgery [id number] Mason Valencia [facility] [address] [place] [address] 03/29/2024 09:12:59 03/29/2024 10:26:19 Depression screening 259648411 Z13.31 Negative Active or passive immunization 451737844 Z23 Carcinoma of colon, stage III 131613558 C18.9 in preparatio n for possible reconstruc tive colon surgery Peripheral neuropathy due to and following antineoplastic therapy 908866684 T45.1X5A Erectile dysfunction 860 188463 F52.21 Essential hypertension 67683231 I10 [id number] Mason Valencia [facility] [address] [facility],[place] [address] 06/23/2024 09:58:22 06/23/2024 10:40:26 Adult health examination 623028266 Z00.01 actually doing wellexcept for the right knee Screening for cardiovascular system disease 344263773 Z13.[address] calcium score test he will consider Peripheral neuropathy due to and following antineoplastic therapy 884909995 T45.1X5A Deficiency of ligaments of knee joint 140992901 M23.8X9 [id number] Mason Valencia [facility] [address] [facility],[place] [address] 01/05/2025 11:58:33 01/05/2025 14:44:59 Depression screening 947543128 Z13.31 Negative Carcinoma of colon, stage III 533383945 C18.9 doing well overall and follow up ct scan is neg Essential hypertension 35902135 I10 bp is stable and doing quite well Mixed hyperlipidemia 267 674916 E78.2 seems to be stable Pain in left foot 359517 7382 69617 M79.672 longstandi ng using orthotics recc f/u with podiatry if worsesees someone who does nails and foot eval Peripheral neuropathy due to and following antineoplastic therapy 907991055 T45.1X5A still a big problem so will need to havi him get a nct emg Erectile dysfunction 860 562143 F52.21 Health Concerns Section Related Observation LastModified by Organization Detai ls LastModified Time None Recorded Concern Status LastModified by Organization Details LastModified Time None Recorded Advance Directives Directive None Recorded Payers Encounter Date Sequence Insurance Name Policy Number Policy Dunbar Covered Member ID Dunbar Member ID Guarantor Name 11/20/2019 1 [employer] FAIRD[place] [id number] 1 Velasquez Cam Jr [id number] Velasquez Cam 03/16/2023 2 MEDICAID-ID: [facility] Velasquez Cam [id number] Velasquez Cam 03/16/2023 1 [place] [employer] Velasquez Cam Jr [id number] Velasquez E Black 03/29/2024 2 [place] Velasquez Truong E Black [id number] Velasquez E Black 03/29/2024 1 [place] [facility] Velasquez Cam Jr [id number] Velasquez E Black 06/23/2024 2 [place] Velasquez Truong E Black [id number] Velasquez E Black 06/23/2024 1 [place] [employer] Velasquez Cam Jr [id number] Velasquez E Black 01/05/2025 2 [place] Velasquez Truong E Black [id number] Velasquez E Black 01/05/2025 1 [place] [facility] [facility] Velasquez Cam Jr [id number] Velasquez E Black Notes Date Note Type Note Provider Name and Address Organization Details Recorded Time 0 text/htm l bump on abdomen, clear liquid, wants area checked. suprapubic area. seems to be healing now BP recheck 12 system ROS negative except where noted above- denies: chest pain, palpitations, sob, ankle swelling, visual problems, hearing problems, muscle aches or pains, numbness or tingling extremities, abdominal pain, bowel issues, bladder issues, sexual dysfunction, abnormal bleeding, sx of sinus/respiratory infection , headaches, dizziness/lightheadednes s, rashes, or nail changes. AGUEDA Osman [address] [place], [address], [facility] 11/20/2019 09:31:40 3 text/htm l here for rechk and have been doing ok overall following all his chemo and RT for stage 3b colon cancerlong detailed discussionright now he is being considered for a Guo procedure and the surgeon in [place] want s him to have a PET scan first Mason Valencia DO [address] [facility], [place], [address], [facility] 03/16/2023 12:44:27 4 text/htm l Care Management - HypertensionReported bypatient.Self Care:not under emotional stress Severity:symptoms are improving; does not interfere with daily activities Associated Symptoms:no dizziness; no lightheadedness; no chest pain; no shortness of breath; no palpitations; no edema; no calf muscle cramps; no blurred vision; no confusion; no headaches; no fatigue here for rechk since his surgery for rectal ca has had a permanent ostomy with rectal closurestruggling post op with the chemo RT does have post chemo neuropathystruggling with ED Mason Valencia DO [address] [place], [address], [facility] 03/29/2024 09:56:03 5 text/htm l here for rechkreviewd ct scan in detail with pt has done well with the ca treatment chemmo and RT and is cancer freehe seems to have developed neuropathyhas developed a neuropathy in his hands feet has a strong fam hxgets worse with weather changealso now feels sx of bm or urination Mason Valencia DO [address] [place], [address], [facility] 01/05/2025 12:49:28
== END 2025-02-07 08:49 | disposition home or self-care (01) ==
LOC: HO.NEURO 08:48
PROVIDERS: PCP Internal Medicine; Visit Provider Internal Medicine
DX: G62.0 Drug-induced polyneuropathy (principal); T45.1X5A Adverse effect of antineoplastic and immunosuppressive drugs, initial encounter; R94.131 Abnormal electromyogram [EMG]
CPT/HCPCS: 95860; 95885; 95886; 95913

== ENCOUNTER → 2025-02-07 08:53 | Outpatient (BNV) | payer MEDICARE, MEDICAID, SELFPAY | PROVIDERS: PCP Internal Medicine; Visit Provider Physical Medicine & Rehabilitation | DX: R20.0 Anesthesia of skin (principal); R20.2 Paresthesia of skin | CPT/HCPCS: 95886; 95913 ==

== ENCOUNTER 2025-07-30 09:51 | Outpatient (AMB) | payer MEDICARE, MEDICAID, SELFPAY ==
--- NOTE | 2025-07-30 09:55 | MHC.OFFVIS ---
Vital Signs 07/30/25 10:03 Height 5 ft 8 in Weight 155 lb BMI 23.6 BP 132/69 Blood Pressure Location Rt brachial Position Sitting Pulse 68 Intake Visit Reasons: rectal carcinoma Intake Note: Patient following up rectal carcinoma. Last seen by Dr. Chahal 07-17-2025. Patient c/o:discuss colonoscopy, check ring around stoma. Colonoscopy: Dr. Garcia 04-24-2021 Pet Crematory Worker Required: No Accompanied by: Self / Same As Patient Allergies capsaicin (From Capzasin) Allergy (Mild, Verified 07/30/25 10:04) Itchy Eyes cephalexin (From Keflex) Allergy (Verified 07/30/25 10:04) Gastrointestinal Upset lisinopril Adverse Reaction (Verified 07/30/25 10:04) Cough Medication List - Last Reconciled 07/30/25 by Chau Vincent MD aspirin 81 mg PO DAILY PRN atenolol 25 mg PO DAILY cholecalciferol (vitamin D3) 50 mcg PO Q OTHER DAY cordyceps 500 mg PO NEEDED mecobalamin (vitamin B12) (B12 Active) 50 mcg PO DAILY omega 5-ant-hqc-fish oil 1,200 (144-216) mg (Fish Oil) 1 cap PO DAILY zinc 25 mg PO DAILY HPI HPI rectal carcinoma: Details: 65-year-old male who is known to me. He had rectal cancer and had undergone APR with Dr. Rome of [facility] in June, He was sent to me by Dr. Chahal his oncologist for a colonoscopy He denies any problems with the stoma so far. 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 [facility] Medical History (Updated 07/30/25 @ 10:24 by Chau Vincent MD) History of rectal cancer Hx of radiation therapy History of chemotherapy Port-A-Cath in place Rectal carcinoma History of alcohol abuse Neuropathy History of perforated ear drum Alcohol dependence Dizziness Anxiety HTN (hypertension) Surgical History Hx of flexible sigmoidoscopy (02/02/23) Hx of colonoscopy History of tympanoplasty of right ear Family History Sister Neuropathy Breast cancer Family/Other Colorectal cancer Brother Pancreatic cancer Mother Angina at rest Neuropathy Open angle primary glaucoma Social History Household Members: Spouse Housing: House Are you a primary acute care registered nurse to a significant other at home: No Do you presently have visiting nurse or other home services: No Alcohol intake: former Patient Tobacco Use Status: Former Tobacco user Tobacco use type: Cigar Substance Use Type: Marijuana service: Yes Current occupational status: other Review of Systems Const Denies chills and Denies fever(s) ENT Reports dizziness and Reports disequilibrium Card Denies chest pain, Denies dyspnea and Denies dyspnea on exertion Resp Denies cough, Denies dyspnea and Denies dyspnea on exertion GI Denies hematochezia and Denies change in bowel habits Denies hematuria and Denies difficulty urinating Musc Reports abnormal gait, Denies back pain and Denies limited range of motion Neuro Details: Poor balance Reports abnormal gait, Reports dizziness, Reports focal weakness, Denies convulsions and Reports disequilibrium Psych Reports depression and Denies mood swings Physical Exam Vital Signs: Last Vital Signs Pulse 68 07/30/25 10:03 BP 132/69 07/30/25 10:03 BMI result Body Mass Index 23.6 Const General: comfortable and no acute distress Orientation/consciousness: patient oriented x3 Neck Neck: Yes no lymphadenopathy Resp Auscultation: clear to auscultation bilaterally Cardio Rhythm: regular rhythm GI Other: Colostomy in the left lower quadrant Palpation (GI): Soft to palpation, nontender and no guarding Neuro Other: Poor balance with ambulation, he has a walker General: patient oriented x3 Assessment & Plan Assessment & Plan (1) History of rectal cancer: Code(s): Z85.048 - Personal history of other malignant neoplasm of rectum, rectosigmoid junction, and anus Category: Medical Plan: He had undergone APR in [facility] in 2022. He was referred to me by Dr. Chahal for colonoscopy. I explained to him the technique of colonoscopy via the stoma. I reviewed the risks including but not limited to bleeding and perforation, as well as the benefits and alternatives. He understands and wants to proceed. Coding Level of Care Code Est Pt Level 3 (63679) Diagnoses History of rectal cancer Z85.048
[2025-07-30 10:03] VITALS: BP 132/69; PULSE 68; BMI 23.6
--- OUTSIDE RECORDS SUMMARY | 2025-07-30 11:59 | XMS_ITS | Encounter Summary ---
Author Organization [facility] Address [address] [address] Phone Care Team Providers Care Aircraft Skin Burnisher Name Role Phone Mason Douglas DO Primary Care Provider [phone] Mason Douglas DO Primary Care Provider [phone] Jeff Mora DO Unavailable Lupe Falcon MORTGAGE LOAN PROCESSING CLERK Unavailable [phone] Raya Chahal MD Unavailable JazielMason houser DO Unavailable Chau Vincent MD Unavailable Lewis Garcia MD Unavailable [phone] Oumou Fuentes RN Unavailable Encounter Details Date Type Department Care Team (Late st Contact Info) Description 11/11/2020 Ancillary Orders [facility],Outside Imaging [address] [place] [address] System, Provider Not In, [facility] [address] [address] Social History Tobacco Use Types Packs/Day Years Used Date Smoking Tobacco: Never Assessed Sex and Gender Information Value Date Recorded Sex Assigned at Male 06/15/2023 1:57 PM EDT Legal Sex Male 9:52 PM EDT Gender Identity Male 06/15/2023 1:57 PM EDT Sexual Orientation Lesbian or Mann 06/15/2023 1: 57 PM EDT documented as of this encounter Plan of Treatment Not on file documented as of this encounter Results * CT Abdomen/Pelvis Outside (No Interpretation) (10/18/2020 12:00 AM EST) Narrative SYSTEMGENERATED, DOCUMENTATION - 11/11/2020 1:45 PM EST This study is for PACS storage only and not for interpretation. us Provider Not In System PhD IMG OUTSIDE IMAGING W /OUT INTERPRETATION Final Result documented in this encounter Visit Diagnoses Not on filedocumented in this encounter Care Teams Aircraft Skin Burnisher Relationship Specialty Start Date End Date Mason Douglas DO [email or web address] PCP - General Internal Medicine 01/13/21 05/12/21 Mason Douglas DO PCP - General Internal Medicine 05/13/21 Jeff Mora DO [address] [place] [address] [email or web address] Primary Oncologist Hematology and Oncology 05/13/21 Lupe Falcon FNP [address] [place] [address] [email or web address] Nurse Practitioner Hematology and Oncology 05/15/21 Raya Chahal MD [address] [place] [address] Medical Oncology 08/22/21 Mason Douglas DO [address] [place] [address] [email or web address] Insurance Assigned Provider 09/13/21 03/27/23 Chau Vincent MD [address] [place] [address] [address] [place] [address] General Surgery 04/29/23 Lewis Garcia MD [address] [place] [address] Dr Pat [address] [place] [address] Gastroenterology 04/29/23 Oumou Fuentes RN [address] [place] [address] [email or web address] Wound Ostomy Nurse 06/18/23 documented as of this encounter Additional Source Comments The information contained in this document represents components of the legal health record. It is not the complete legal health record.[facility]
--- OUTSIDE RECORDS SUMMARY | 2025-07-30 11:59 | XMS_ITS | Encounter Summary ---
Author Organization [facility] Address [address] [facility] [address] [place] [address] Phone Care Team Providers Care Combining Machine Operator Name Role Phone Mason Douglas DO Primary Care Provider Jeff Mora DO Unavailable Lupe Falcon FIELD EXAMINER Unavailable [phone] Raya Chahal MD Unavailable Chau Vincent MD Unavailable Lewis Garcia MD Unavailable [phone] Oumou Fuentes RN Unavailable Encounter Details Date Type Department Care Team (Late st Contact Info) Description 06/21/2023 Transcribe Orders [facility] Specimen Processing [address] [place] [address] Elaine Juarez [address] [place], [place] [id number] Social History Tobacco Use Types Packs/Day Years Used Date Smoking Tobacco: Former Cigars Q uit: 2010 Smokeless Tobacco: Never Alcohol Use Standard Drinks/Week Comments Not Currently 0 (1 standard drink = 0.6 oz pur e alcohol) stopped 2 years ago Education Answer Date Recorded Are you interested in more education? Not on shima e 03/05/2023 Are you concerned about learning? Not on file 03/05/2023 No 03/05/2023 No 03/05/2023 Digital Access Answer Date Recorded No 04/05/2023 No 04/05/2023 Reliable internet access at home? Not on file 04/05/2023 Device with a working camera? Not on file Intimate Partner Violence Answer Date R ecorded Are you denied basic needs s uch as food, clothing, or medical care? No 06/15/2023 In the past 12 months have y ou been in a relationship with a person who hurts, threatens, or tries to control you? No 06/15/2023 Are you denied basic needs s uch as food, clothing, or medical care? No 06/15/2023 In the past 12 months have y ou been in a relationship with a person who hurts, threatens, or tries to control you? No 06/15/2023 Sex and Gender Information Value Date Recorded Sex Assigned at Male 06/15/2023 1:57 PM EDT Legal Sex Male 9:52 PM EDT Gender Identity Male 06/15/2023 1:57 PM EDT Sexual Orientation Lesbian or Mann 06/15/2023 1: 57 PM EDT documented as of this encounter Plan of Treatment Not on file documented as of this encounter Visit Diagnoses Not on filedocumented in this encounter Care Teams Combining Machine Operator Relationship Specialty Start Date End Date Mason Douglas DO [email or web address] PCP - General Internal Medicine 05/13/21 Jeff Mora DO [address] [place] [id number] [email or web address] Primary Oncologist Hematology and Oncology 05/13/21 Lupe Falcon FNP [address] [place] [address] [email or web address] Nurse Practitioner Hematology and Oncology 05/15/21 Raya Chahal MD [address] [place] [address] Medical Oncology 08/22/21 Chau Vincent MD [address] [place] [address] Dr [address] [place] [address] General Surgery 04/29/23 Lewis Garcia MD [address] [place] [address] Dr Pat [address] [place] [address] Gastroenterology 04/29/23 Oumou Fuentes RN [address] [place] [phone] [email or web address] Wound Ostomy Nurse 06/18/23 documented as of this encounter Additional Source Comments The information contained in this document represents components of the legal health record. It is not the complete legal health record.[facility]
--- OUTSIDE RECORDS SUMMARY | 2025-07-30 11:59 | XMS_ITS | Encounter Summary ---
Author Organization [facility] Address [address] [address] Phone Care Team Providers Care Hooker Inspector Name Role Phone Mason Douglas DO Primary Care Provider [phone] Mason Douglas DO Primary Care Provider [phone] Jeff Mora DO Unavailable Lupe Falcon SHALE PLANER OPERATOR Unavailable Raya Chahal MD Unavailable JazielMason houser DO Unavailable Chau Vincent MD Unavailable Lewis Garcia MD Unavailable [phone] Oumou Fuentes RN Unavailable Encounter Details Date Type Department Care Team (Late st Contact Info) Description 11/11/2020 Ancillary Orders [facility],Outside Imaging [address] [place] [address] System, Provider Not In, PhD Partners [address] [address] Social History Tobacco Use Types Packs/Day Years [...] documented as of this encounter Results * MRI Pelvis (Soft Tissue) Outside (No Interpretation) (10/21/2020 12:00 AM EST) Narrative SYSTEMGENERATED, DOCUMENTATION - 11/11/2020 1:45 PM EST This study is for PACS storage only and not for interpretation. us Provider Not In System PhD IMG OUTSIDE IMAGING W /OUT INTERPRETATION Final Result documented in this encounter Visit Diagnoses Not on filedocumented in this encounter Care Teams Hooker Inspector Relationship Specialty Start Date End Date Mason Douglas DO [email or web address] PCP - General Internal Medicine 01/13/21 05/12/21 Mason Douglas DO [email or web address] PCP - General Internal Medicine 05/13/21 Jeff Mora DO [address] [place] [address] [email or web address] Primary Oncologist Hematology and Oncology 05/13/21 Lupe Falcon FNP [address] [place] [address] [email or web address] Nurse Practitioner Hematology and Oncology 05/15/21 Raya Chahal MD [address] [place] [address] Medical Oncology 08/22/21 Mason Douglas DO [address] [place] [address] [email or web address] Insurance Assigned Provider 09/13/21 03/27/23 Chau Vincent MD [address] [place] [address] Dr [address] [place] [address] General Surgery 04/29/23 Lewis Garcia MD [address] [place] [address] Dr Pat [address] [place] [address] Gastroenterology 04/29/23 Oumou Fuentes RN [address] [place] [address] [email or web address] Wound Ostomy Nurse 06/18/23 documented as of this encounter Additional Source Comments The information contained in this document represents components of the legal health record. It is not the complete legal health record.[facility]
--- OUTSIDE RECORDS SUMMARY | 2025-07-30 11:59 | XMS_ITS | Encounter Summary ---
Author Organization [facility] Address [address] [facility] [address] [place] [address] Phone Care Team Providers Care Drying Tunnel Operator Name Role Phone Mason Douglas DO Primary Care Provider Jeff Mora DO Unavailable Lupe Falcon LINE AND FRAME POLER Unavailable [phone] Raya Chahal MD Unavailable Mason Douglas DO Unavailable Chau Vincent MD Unavailable Lewis Garcia MD Unavailable [phone] Oumou Fuentes RN Unavailable Encounter Details Date Type Department Care Team (Late st Contact Info) Description 05/16/2021 Ancillary Orders [facility],Outside Imaging [address] [place] [address] System, Provider Not In, PhD Partners [address] [address] Social History Tobacco Use Types Packs/Day Years Used Date Smoking Tobacco: Never Assessed Alcohol Use Standard Drinks/Week Comments Not Currently 0 (1 standard drink = 0.6 oz pur e alcohol) Sex and Gender Information Value Date Recorded Sex Assigned at Male 06/15/2023 1:57 PM EDT Legal Sex Male 9:52 PM EDT Gender Identity Male 06/15/2023 1:57 PM EDT Sexual Orientation Lesbian or Mann 06/15/2023 1: 57 PM EDT documented as of this encounter Plan of Treatment Not on file documented as of this encounter Results * CT Abdomen/Pelvis Outside (No Interpretation) (05/01/2021 12:00 AM EDT) Narrative SYSTEMGENERATED, DOCUMENTATION - 05/16/2021 9:58 AM EDT This study is for PACS storage only and not for interpretation. us Provider Not In System PhD IMG OUTSIDE IMAGING W /OUT INTERPRETATION Final Result documented in this encounter Visit Diagnoses Not on filedocumented in this encounter Care Teams Drying Tunnel Operator Relationship Specialty Start Date End Date Mason Douglas DO [email or web address] PCP - General Internal Medicine 05/13/21 Jeff Mora DO [address] [place] [address] [email or web address] Primary Oncologist Hematology and Oncology 05/13/21 Lupe Falcon FNP [address] [place] [address] [email or web address] Nurse Practitioner Hematology and Oncology 05/15/21 Raya Chahal MD [address] [place] [address] Medical Oncology 08/22/21 Mason Douglas DO [address] [place] [address] [email or web address] Insurance Assigned Provider 09/13/21 03/27/23 Chau Vincent MD [address] [place] [address] [place] [address] General Surgery 04/29/23 Lewis Garcia MD [address] [place] [address] Dr [address] [place] [address] Gastroenterology 04/29/23 Oumou Fuentes RN [address] [place] [address] [email or web address] Wound Ostomy Nurse 06/18/23 documented as of this encounter Additional Source Comments The information contained in this document represents components of the legal health record. It is not the complete legal health record.[facility]
--- OUTSIDE RECORDS SUMMARY | 2025-07-30 11:59 | XMS_ITS | Clinical Summary ---
Author Organization [facility] Address [address] [address] Phone Care Team Providers Care Police Communications Dispatcher Name Role Phone JazielMason houser Primary Care Provider Jeff Mora DO Unavailable [phone] Lupe Falcon SLD INCLUSION TEACHER Unavailable Raya Chahal MD Unavailable Chau Vincent MD Unavailable Lewis Garcia MD Unavailable [phone] Oumou Fuentes RN Unavailable Allergies Active Allergy Reactions Criticality Noted Date Comments Capsaicin Rash Low 06/06/2021 Latex, Natural Rubber Rash High 06/02/2023 Lisinopril Cough 01/06/2021 Medications atenolol (TENORMIN) 50 mg tablet Take 25 mg by mouth nightly at bedtime. Active multivitamins with minerals- folic acid-lycopene (MEN'S ONE-A-DAY) 400-20-300 mcg Tab Take 1 tablet by mouth daily. Active cholecalciferol (VITAMIN D3) 25 MCG (1,000 unit) tablet Take 1,000 Units by mouth daily. Active loratadine (CLARITIN) 10 mg tablet Take 10 mg by mouth daily. Active citalopram (CELEXA) 20 MG tablet Take 20 mg by mouth daily. Active oxyCODONE 5 MG immediate release tablet 2.5 -5mg Q 6 hrs prn pain 20 tablet 07/02/2023 Active Active Problems Problem Noted Date Diagnosed Date Alcohol dependence 06/21/2023 06/21/2023 Assessment & Plan (06/22/2023 4:42 PM EDT): As previously stated : sober about 2 years Off Naltrexone x 6 months Assessment & Plan (06/21/2023 4:08 PM EDT): Sober about 2 years Off Naltrexone x 6 months Complex posttraumatic stress disorder 06/21/2023 06/21/2023 Depressive disorder 06/21/2023 06/21/2023 Assessment & Plan (07/07/2023 3:21 PM EDT): Continues on Celexa 20 mg daily Assessment & Plan (06/22/2023 4:43 PM EDT): Patient arrives on Celexa 20 mg daily. Consider [facility] psych eval if necessary. Hypertension 06/21/2023 06/21/2023 Assessment & Plan (07/07/2023 3:21 PM EDT): P stable on atenolol 25 mg at at bedtime. BP Readings from Last 3 Encounters: 07/07/23 110/68 06/22/23 120/73 06/18/23 122/74 Assessment & Plan (06/22/2023 4:42 PM EDT): Follow BP with atenolol 25 mg daily Assessment & Plan (06/21/2023 2:04 PM EDT): Had some orthostatic hypotension in the hospital Per d/c summary: blood pressure was well controlled with sbp 110-120 throughout his admission while taking only his home atenolol. Home Valsartan 40 mg daily was not resumed Malignant neoplasm of rectum 12/05/2020 Assessment & Plan (07/07/2023 3:20 PM EDT): As previously stated : From d/c summary - see [facility] Onc notes for complete history. Presented with a rectal cancer in 2020. He underwent neoadjuvant treatment. At that time he did not undergo surgery. The tumor never completely resolved. He still has the tumor as well as issues from the radiation in his perineal region and rectum. 06/14/2023 he was taken to the OR for a laparoscopic anterior posterior resection with colostomy creation. Please see separately dictated operative note by Titus Rome MD Pain was well controlled with tylenol until starting to work with PT and ambulating. RX oxycodone 2.5 mg q 6 hrs prn. Patient reluctant to take but I reassured him it is there if needed for severe pain to keep him mobile Wound c/d /I Colostomy education started and he is doing well Message from Surgery team that positioning precautions can be DC'd Lovenox DC'd today He has a surgical follow-up appointment tomorrow for removal of remaining sutures in his rectal area Assessment & Plan (06/22/2023 4:40 PM EDT): As previously stated : From d/c summary - see [facility] Onc notes for complete history. presented with a rectal cancer in 2020. He underwent neoadjuvant treatment. At that time he did not undergo surgery. The tumor never completely resolved. He still has the tumor as well as issues from the radiation in his perineal region and rectum. 06/14/2023 he was taken to the OR for a laparoscopic anterior posterior resection with colostomy creation. Please see separately dictated operative note by Titus Rome MD Pain was well controlled with tylenol until starting to work with PT and ambulating. RX oxycodone 2.5 mg q 6 hrs prn. Patient reluctant to take but I reassured him it is there if needed for severe pain to keep him mobile Wound c/d /I Colostomy education started - gave patient info handout Lovenox until d/c home from SNF per Surgery team [place] [facility] [place] & Plan (06/21/2023 4:07 PM EDT): From d/c summary - see [facility] Onc notes for complete history. presented with a rectal cancer in 2020. He underwent neoadjuvant treatment. At that time he did not undergo surgery. The tumor never completely resolved. He still has the tumor as well as issues from the radiation in his perineal region and rectum. on 06/14/2023 and taken to the OR for a laparoscopic anterior posterior resection with colostomy creation. Please see separately dictated operative note by Titus Rome MD Pain was well controlled with tylenol until starting to work with PT and ambulating. RX oxycodone 2.5 mg q 6 hrs prn. Patient reluctant to take but I reassured him it is there if needed for severe pain to keep him mobile Wound c/d /I Colostomy education started - gave patient info handout Lovanox until d/c home from SNF per Surgery team [place] [facility] [place]izations Immunization Administration Dates Next Due COVID-19 (Pre-08/30) Eduardo Vaccine, [id number], PF 03/14/2021 Hepatitis B Adult 02/13/2014,08/24/2013,07/17/20 13 INFLUENZA, SPLIT VIRUS, TRIVALENT PF 09/03/2014, 07/17/2013 Influenza Quadrivalent Preservative Free IM 10/08 Tdap 08/08/2016,03/29/2007 Family History Medical History Relation Comments Cancer Brother Cancer Maternal Cousin Cancer Sister Relation Status Comments Brother Maternal Cousin Alive Sister Alive Social History Tobacco Use Types Packs/Day Years Used Date Smoking Tobacco: Former Cigars Q uit: 2009 Smokeless Tobacco: Never Tobacco Cessation:Counseling Given: Not Answered Alcohol Use Standard Drinks/Week Comments Not Currently [...] or Mann 06/15/2023 1: 57 PM EDT Last Filed Vital Signs Vital Sign Reading Time Taken Comments Blood Pressure 110/68 07/07/2023 3:11 PM EDT Pulse 80 07/07/2023 3:11 PM EDT Temperature 36.4 C (97.6 F) 07/07/2023 3:11 PM EDT Respiratory Rate 18 07/07/2023 3:11 PM EDT Oxygen Saturation 98% 07/07/2023 3:11 PM EDT Inhaled Oxygen Concentration - - Weight 71.7 kg (158 lb) 07/08/2023 1:56 PM EDT Height 172.7 cm (5' 8 ) 06/14/2023 12:05 PM EDT Body Mass Index 24.02 06/14/2023 12:05 PM EDT Plan of Treatment Health Maintenance Due Date Last Done Comments LIPID PANEL 1958 DEPRESSION SCREENING 1970 SMOKING Hx and SMOKELESS TOBACCO SCREENING 1971 PNEUMOCOCCAL VACCINES (50+ years) (1 of 2 - PCV) 1977 ZOSTER VACCINES (1 of 2) 1977 COLOGUARD 2003 COLONOSCOPY 2003 COLORECTAL CANCER SCREENING 2003 FIT TEST 2003 FOBT 2003 SIGMOIDOSCOPY 2003 VIRTUAL COLONOSCOPY 2003 RSV VACCINE (1 - Risk 60-74 years 1-dose series) 2018 ABDOMINAL AORTIC ANEURYSM (AAA) SCREENING 2023 BLOOD PRESSURE 01/06/2024 07/07/2023 INFLUENZA VACCINE (#1) 2025 , 08/08/2020, 09/03/2014, Additional history exists COVID-19 VACCINE (2 - 2024- season) 2025 03/14/2021 Adult Td,Tdap Booster 08/08/2026 08/08/2016, 007 HEPATITIS C SCREENING Completed 08/29/2021 HEPATITIS A VACCINES Aged Out No long er eligible based on patient's age to complete this topic HIB VACCINES Aged Out No longer eligi ble based on patient's age to complete this topic MENINGOCOCCAL VACCINES (ACWY) Aged Out No longer eligible based on patient's age to complete this topic MENINGOCOCCAL VACCINES (B) Aged Out N o longer eligible based on patient's age to complete this topic Medical Devices Implanted Type Area Printing Worker Supervisor Device Identifier Shelf Expiration Date Model / Serial / Lot Chemo [place] Right: Chest Insurance [facility] MEDICARE PART A & B [facility] & B [employer] NET FULL MEDICARE PART A & B HEALTH SAFETY NET FULL [facility] MEDICARE PART A & B HEALTH SAFETY NET FULL Member Subscriber Plan / Payer (Ef fective 2022-) Name:Velasquez Cam Relation to Subscriber:Self Name:Velasquez Cam JrWolf Payer ID:Not on file Group ID:Not on file Type:Medicaid Address: [place] [id number] [facility] MEDICARE PART A & B [facility] [place] [address] [facility] [place]ina [place] Advance Directives For more information, please contact: [phone] (9AM - 5PM [place], Wednesday-Wednesday) Documents on File Type Date Recorded Patient Bank Credit Card Collection Clerk Expl swatiion Healthcare Proxy 06/18/2023 1:08 PM * Full Code (Latest Code Status on File) Date Activated Date Inactivated Comments 06/14/2023 5:52 PM Question Answer Comments Code Status Confirmed With: Patient Care Teams Police Communications Dispatcher Relationship Specialty Start Date End Date Mason Douglas DO PCP - General Internal Medicine 05/13/21 Jeff Mora DO [address] [place] [address] [email or web address] Primary Oncologist Hematology and Oncology 05/13/21 Lupe Falcon FNP [address] [place] [address] Nurse Practitioner Hematology and Oncology 05/15/21 Raya Chahal MD [address] [place] [address] Medical Oncology 08/22/21 Chau Vincent MD [address] [place] [address] [address] [place] [address] General Surgery 04/29/23 Lewis Garcia MD [address] [place] [address] Dr Pat [address] [place] [address] Gastroenterology 04/29/23 Oumou Fuentes RN [address] [place] [address] Wound Ostomy Nurse 06/18/23 Additional Source Comments The information contained in this document represents components of the legal health record. It is not the complete legal health record.[facility]
--- OUTSIDE RECORDS SUMMARY | 2025-07-30 11:59 | XMS_ITS | Encounter Summary ---
Author Organization [facility] Address [address] [address] Phone Care Team Providers Care Bag Machine Adjuster Name Role Phone Mason Douglas DO Primary Care Provider [phone] Mason Douglas DO Primary Care Provider [phone] Jeff Mora DO Unavailable Lupe Falcon XEROX MACHINE MECHANIC Unavailable [phone] Raya Chahal MD Unavailable JazielMason houser DO Unavailable Chau Vincent MD Unavailable Lewis Garcia MD Unavailable [phone] Oumou Fuentes RN Unavailable Encounter Details Date Type Department Care Team (Late st Contact Info) Description 11/11/2020 Ancillary Orders [facility],Outside Imaging [address] [place] [address] System, Provider Not In, PhD Partners [address] [address] Social History Tobacco Use Types Packs/Day Years [...] documented as of this encounter Results * XR Chest Outside (No Interpretation) (10/18/2020 12:05 AM EST) Narrative SYSTEMGENERATED, DOCUMENTATION - 11/11/2020 1:46 PM EST This study is for PACS storage only and not for interpretation. us Provider Not In System PhD IMG OUTSIDE IMAGING W /OUT INTERPRETATION Final Result documented in this encounter Visit Diagnoses Not on filedocumented in this encounter Care Teams Bag Machine Adjuster Relationship Specialty Start Date End Date Mason Douglas DO [email or web address] PCP - General Internal Medicine 01/13/21 05/12/21 Mason Douglas DO PCP - General Internal Medicine 05/13/21 Jeff Mora DO [address] [place] [address] [email or web address] Primary Oncologist Hematology and Oncology 05/13/21 Lupe Falcon FNP [address] [place] [address] [email or web address] Nurse Practitioner Hematology and Oncology 05/15/21 Raya Chahal MD [address] [place] [address] Medical Oncology 08/22/21 Mason Douglas DO [address] [place] [address] [email or web address] Insurance Assigned Provider 09/13/21 03/27/23 Chau Vincent MD [address] [place] [address] [address] [place] [address] General Surgery 04/29/23 Lewis Garcia MD [address] [place] [address] Dr [address] [place] [address] Gastroenterology 04/29/23 Oumou Fuentes RN [address] [place] [id number] [email or web address] Wound Ostomy Nurse 06/18/23 documented as of this encounter Additional Source Comments The information contained in this document represents components of the legal health record. It is not the complete legal health record.[facility]
--- OUTSIDE RECORDS SUMMARY | 2025-07-30 11:59 | XMS_ITS | Encounter Summary ---
Author Organization [facility] Address [address] [facility] [address] [place] [address] Phone Care Team Providers Care Hospital Insurance Representative Name Role Phone Mason Douglas DO Primary Care Provider Jeff Mora DO Unavailable [phone] Lupe Falcon DREDGE BOAT ENGINEER Unavailable [phone] Raya Chahal MD Unavailable Chau Vincent MD Unavailable Lewis Garcia MD Unavailable [phone] Oumou Fuentes RN Unavailable Encounter Details Date Type Department Care Team (Late st Contact Info) Description 06/14/2023 Procedure Pass [facility]PT [address] [place] [phone] Social History Tobacco Use Types Packs/Day Years [...] PM EDT documented as of this encounter Functional Status * Calculated C-SSRS Risk Score (Lifetime/Recent) Answer Date of Assessment Author No Risk Indicated 06/15/2023 2:14 PM EDT Paige Arriaga RN * [place] Suicide Severity Rating Scale (Screener/Recent Self-Report) Question Answer Date of Assessment Author 1. Wish to be (Past 1 Month) No 023 2:14 PM EDT Paige Arriaga RN 2. Non-Specific Active Suici vinny Thoughts (Past 1 Month) No 06/15/2023 2:14 PM EDT Annamaria Arriaga RN 6. Suicidal Behavior (Lifetime) No 3 2:14 PM EDT Paige Arriaga RN documented as of this encounter Plan of Treatment Not on file documented as of this encounter Visit Diagnoses Not on filedocumented in this encounter Care Teams Hospital Insurance Representative Relationship Specialty Start Date End Date Mason Douglas DO [email or web address] PCP - General Internal Medicine 05/13/21 Jeff Mora DO [address] [place] [address] [email or web address] Primary Oncologist Hematology and Oncology 05/13/21 Lupe Falcon FNP [address] [place] [address] [email or web address] Nurse Practitioner Hematology and Oncology 05/15/21 Raya Chahal MD [address] [place] [address] Medical Oncology 08/22/21 Chau Vincent MD [address] [place] [address] [place] [address] General Surgery 04/29/23 Lewis Garcia MD [address] [place] [address] [place] [address] Gastroenterology 04/29/23 Oumou Fuentes RN [address] [place] [address] [email or web address] Wound Ostomy Nurse 06/18/23 documented as of this encounter Additional Source Comments The information contained in this document represents components of the legal health record. It is not the complete legal health record.[facility]
== END 2025-07-30 10:37 | disposition home or self-care (01) ==
PROVIDERS: PCP Internal Medicine; Visit Provider Surgery
DX: Z85.048 Personal history of other malignant neoplasm of rectum, rectosigmoid junction, and anus (principal)
CPT/HCPCS: 99213

== ENCOUNTER → 2025-07-30 09:51 | Outpatient (BNVA) | payer MEDICARE, MEDICAID, SELFPAY | PROVIDERS: PCP Internal Medicine; Visit Provider Surgery | DX: Z85.048 Personal history of other malignant neoplasm of rectum, rectosigmoid junction, and anus (principal) | CPT/HCPCS: 99212 ==